=== PATIENT | female | born 1970 | race Hispanic/Latino ===

== ENCOUNTER 2017-07-07 23:27 | Emergency (ER) | payer SELFPAY ==
[2017-07-08 01:49] LABS: Basophils # (Auto) 0.1 K/mm3 (0.0-0.1); Basophils % (Auto) 0.6 % (0.0-1.8); Eosinophils # (Auto) 0.7 K/mm3 (0.0-0.4); Eosinophils % (Auto) 5.9 % (0.0-4.3); Hematocrit 41.9 % (30.3-42.9); Hemoglobin 14.1 gm/dl (10.1-14.3); Lymphocytes # (Auto) 3.6 K/mm3 (1.2-5.4); Lymphocytes % (Auto) 29.8 % (13.4-35.0); Mean Corpuscular HGB Conc 34 % (30-34); Mean Corpuscular Hemoglobin 27 pg (28-32); Mean Corpuscular Volume 81 fl (79-97); Monocytes # (Auto) 0.7 K/mm3 (0.0-0.8); Platelet Count 377 K/mm3 (140-440); Red Blood Count 5.18 M/mm3 (3.65-5.03); Red Cell Distribution Width 14.1 % (13.2-15.2)
[2017-07-08 01:53] LABS: Alanine Aminotransferase 90 units/L (7-56); Albumin 4.5 g/dL (3.9-5); BUN/Creatinine Ratio 19; Blood Urea Nitrogen 13 mg/dL (7-17); Calcium 9.6 mg/dL (8.4-10.2); Hemolysis Index 3
[2017-07-08 03:30] LABS: Bilirubin,Urine NEG (Negative); Blood,Urine NEG (Negative); Calcium Oxalate Crystals,Urine 1+; Color,Urine Yellow (Yellow); Mucus,Urine 2+ /HPF; Urobilinogen,Urine < 2.0 mg/dL (<2.0)
[2017-07-08] MEDS ORDERED: NACL 0.9% 1000 ML 1,000 ML IV ONE (09:36)
[2017-07-08] MEDS ORDERED: MORPHINE IV ONE (09:36)
[2017-07-08] MEDS ORDERED: ZOFRAN IV ONE (09:36)
--- NOTE | 2017-07-08 10:27 | Emergency Department Report ---
ED Abdominal Pain HPI - General Chief Complaint: Abdominal Pain Stated Complaint: ABD PAIN Time Seen by Provider: 07/08/17 09:13 Source: patient Mode of arrival: Ambulatory Limitations: No Limitations - History of Present Illness Initial Comments: 46 year old female with a past medical history of diabetes (insulin-dependent and pills), hypertension, and liver cirrhosis "secondary to diabetes" presents to the Hospital complaining of abdominal pain since yesterday. Pain is in her right upper quadrant but also radiates to the lower abdomen. Pain is sharp and stabbing, worse with palpation, rate is 7/10 intensity, no reported alleviating factors. Patient denies nausea, vomiting, diarrhea, dysuria, fever, or hematuria. Patient complains of "right kidney pain". Patient recently relocated here from [place]. She does not have a local M.D. Her liver cirrhosis with diagnosed via liver biopsy and states she has been ruled out for hepatitis and does not drink alcohol. Severity scale (0 -10): 8 - Related Data Previous Rx's Medication Instructions Recorded Last Taken Type HYDROcodone/APAP 5-325 [[place] 1 each PO Q6HR PRN #15 tablet 07/08/17 Unknown Rx 5/325] Ondansetron [Zofran Odt] 4 mg PO Q8HR PRN #20 tab.rapdis 07/08/17 Unknown Rx Allergies Allergy/AdvReac Type Severity Reaction Status Date / Time fentanyl Allergy Nausea Verified 07/08/17 01:06 tramadol Allergy Hives Verified 07/08/17 01:06 ED Review of Systems ROS: Stated complaint: ABD PAIN Other details as noted in HPI Comment: All other systems reviewed and negative Other: Constitutional: No fevers chills Eyes: No eye pain visual changes ENT: No ear pain or throat pain Neck: Denies pain Respiratory: Denies cough wheezing shortness of breath Cardiovascular: Denies chest pain, palpitations, syncope GI: as per hpi : Denies dysuria Musculoskeletal: Denies back pain, joint swelling Skin: Denies rash, lesions, erythema Neurologic: Denies headache, numbness, weakness Psychiatric: Denies suicidal ideation, hallucinations ED Past Medical Hx - Past Medical History Previous Medical History?: Yes Hx Diabetes: Yes Additional medical history: Cirrhosis - Surgical History Past Surgical History?: Yes Hx Cholecystectomy: Yes Additional Surgical History: liver biopsy - Social History Smoking Status: Never Smoker Substance Use Type: None - Medications Home Medications: Home Medications Medication Instructions Recorded Confirmed Last Taken Type HYDROcodone/APAP 5-325 [[place] 1 each PO Q6HR PRN #15 tablet 07/08/17 Unknown Rx 5/325] Ondansetron [Zofran Odt] 4 mg PO Q8HR PRN #20 tab.rapdis 07/08/17 Unknown Rx ED Physical Exam - General Limitations: No Limitations - Other Other exam information: General: No limitations, patient is alert in no acute distress Head exam: Atraumatic, normocephalic Eyes exam: Normal appearance, pupils equal reactive to light, nonicteric sclera ENT: Moist mucous membrane, normal oropharynx Neck exam: Normal inspection, full range of motion, no meningismus nontender Respiratory exam: Clear to auscultation bilateral, no wheezes, rales, crackles Cardiovascular: Normal rate and rhythm, normal heart sounds Abdomen: Soft, nondistended, no right upper quadrant and bilateral lower quadrant , with normal bowel sounds, no rebound, or guarding Extremity: Full range of motion normal inspection no deformity Back: Normal Inspection, full range of motion, no tenderness Neurologic: Alert, oriented x3, cranial nerves intact, no motor or sensory deficit Psychiatric: normal affect, normal mood Skin: Warm, dry, intact ED Course Vital Signs 07/08/17 07/08/17 07/08/17 01:07 03:59 06:02 Temperature 98.3 F 97.8 F Pulse Rate 94 H 79 Respiratory 18 18 18 Rate Blood Pressure 176/77 Blood Pressure 175/102 [Left] O2 Sat by Pulse 95 99 Oximetry 07/08/17 07/08/17 07/08/17 06:15 06:45 07:00 Temperature Pulse Rate Respiratory Rate Blood Pressure 153/72 149/77 146/82 Blood Pressure [Left] O2 Sat by Pulse 97 98 99 Oximetry 07/08/17 07/08/17 07/08/17 07:05 07:15 07:30 Temperature 98.0 F Pulse Rate 88 Respiratory 14 Rate Blood Pressure 146/82 130/73 Blood Pressure 146/82 [Left] O2 Sat by Pulse 99 98 98 Oximetry 07/08/17 07/08/17 07/08/17 07:45 08:00 08:15 Temperature Pulse Rate Respiratory Rate Blood Pressure 130/73 133/71 133/71 Blood Pressure [Left] O2 Sat by Pulse 98 100 98 Oximetry 07/08/17 07/08/17 08:30 09:55 Temperature Pulse Rate Respiratory 15 Rate Blood Pressure 133/75 Blood Pressure [Left] O2 Sat by Pulse 99 Oximetry ED Medical Decision Making - Lab Data Result diagrams: 07/08/17 01:20 07/08/17 01:20 Lab Results 07/08/17 07/08/17 07/08/17 Range/Units 01:20 01:20 01:20 WBC 12.1 H (4.5-11.0) K/mm3 RBC 5.18 H (3.65-5.03) M/mm3 Hgb 14.1 (10.1-14.3) gm/dl Hct 41.9 (30.3-42.9) % MCV 81 (79-97) fl MCH 27 L (28-32) pg MCHC 34 (30-34) % RDW 14.1 (13.2-15.2) % Plt Count 377 (140-440) K/mm3 Lymph % (Auto) 29.8 (13.4-35.0) % [place] % (Auto) 6.0 (0.0-7.3) % Eos % (Auto) 5.9 H (0.0-4.3) % Baso % (Auto) 0.6 (0.0-1.8) % Lymph # 3.6 (1.2-5.4) K/mm3 [place] # 0.7 (0.0-0.8) K/mm3 Eos # 0.7 H (0.0-0.4) K/mm3 Baso # 0.1 (0.0-0.1) K/mm3 Seg Neutrophils % 57.7 (40.0-70.0) % Seg Neutrophils # 7.0 (1.8-7.7) K/mm3 Sodium 137 (137-145) mmol/L Potassium 4.1 (3.6-5.0) mmol/L Chloride 94.9 L (98-107) mmol/L Carbon Dioxide 27 (22-30) mmol/L Anion Gap 19 mmol/L BUN 13 (7-17) mg/dL Creatinine 0.7 (0.7-1.2) mg/dL Estimated GFR > 60 ml/min BUN/Creatinine Ratio 19 % Glucose 253 H (65-100) mg/dL POC Glucose (70-105) Calcium 9.6 (8.4-10.2) mg/dL Total Bilirubin 0.40 (0.1-1.2) mg/dL AST 53 H (5-40) units/L ALT 90 H (7-56) units/L Alkaline Phosphatase 136 H (35-129) units/L Total Protein 8.4 H (6.3-8.2) g/dL Albumin 4.5 (3.9-5) g/dL Albumin/Globulin Ratio 1.2 % HCG, Qual Negative (Negative) Urine Color (Yellow) Urine Turbidity (Clear) Urine pH (5.0-7.0) Ur Specific [place] (1.003-1.030) Urine Protein (Negative) mg/dL Urine Glucose (UA) (Negative) mg/dL Urine Ketones (Negative) mg/dL Urine Blood (Negative) Urine Nitrite (Negative) Urine Bilirubin (Negative) Urine Urobilinogen (<2.0) mg/dL Ur Leukocyte Esterase (Negative) Urine WBC (Auto) (0.0-6.0) /HPF Urine RBC (Auto) (0.0-6.0) /HPF U Epithel Cells (Auto) (0-13.0) /HPF Calcium Oxalate Crystal Urine Mucus /HPF 07/08/17 07/08/17 Range/Units 02:57 09:50 WBC (4.5-11.0) K/mm3 RBC (3.65-5.03) M/mm3 Hgb (10.1-14.3) gm/dl Hct (30.3-42.9) % MCV (79-97) fl MCH (28-32) pg MCHC (30-34) % RDW (13.2-15.2) % Plt Count (140-440) K/mm3 Lymph % (Auto) (13.4-35.0) % [place] % (Auto) (0.0-7.3) % Eos % (Auto) (0.0-4.3) % Baso % (Auto) (0.0-1.8) % Lymph # (1.2-5.4) K/mm3 [place] # (0.0-0.8) K/mm3 Eos # (0.0-0.4) K/mm3 Baso # (0.0-0.1) K/mm3 Seg Neutrophils % (40.0-70.0) % Seg Neutrophils # (1.8-7.7) K/mm3 Sodium (137-145) mmol/L Potassium (3.6-5.0) mmol/L Chloride (98-107) mmol/L Carbon Dioxide (22-30) mmol/L Anion Gap mmol/L BUN (7-17) mg/dL Creatinine (0.7-1.2) mg/dL Estimated GFR ml/min BUN/Creatinine Ratio % Glucose (65-100) mg/dL POC Glucose 245 H (70-105) Calcium (8.4-10.2) mg/dL Total Bilirubin (0.1-1.2) mg/dL AST (5-40) units/L ALT (7-56) units/L Alkaline Phosphatase (35-129) units/L Total Protein (6.3-8.2) g/dL Albumin (3.9-5) g/dL Albumin/Globulin Ratio % HCG, Qual (Negative) Urine Color Yellow (Yellow) Urine Turbidity Clear (Clear) Urine pH 5.0 (5.0-7.0) Ur Specific [place] 1.038 H (1.003-1.030) Urine Protein 100 mg/dl (Negative) mg/dL Urine Glucose (UA) >=500 (Negative) mg/dL Urine Ketones Neg (Negative) mg/dL Urine Blood Neg (Negative) Urine Nitrite Neg (Negative) Urine Bilirubin Neg (Negative) Urine Urobilinogen < 2.0 (<2.0) mg/dL Ur Leukocyte Esterase Neg (Negative) Urine WBC (Auto) 3.0 (0.0-6.0) /HPF Urine RBC (Auto) 5.0 (0.0-6.0) /HPF U Epithel Cells (Auto) 1.0 (0-13.0) /HPF Calcium Oxalate Crystal 1+ Urine Mucus 2+ /HPF - Radiology Data Radiology results: report reviewed ct abd/pelvis noncontrast: no acute process, bilateral renal calyceal stones. No ureteral stones or hydronephrosis. Cholecystectomy - Differential Diagnosis abdominal pain NOS, diverticulitis, appendicitis, cirrhosis Critical Care Time: No Critical care attestation.: If time is entered above; I have spent that time in minutes in the direct care of this critically ill patient, excluding procedure time. ED Disposition Clinical Impression: Abdominal pain, Cirrhosis, Diabetes Disposition: DC-01 TO HOME OR SELFCARE Is pt being admited?: No Does the pt Need Aspirin: No Condition: Stable Instructions: Abdominal Pain (ED), Diabetes Mellitus Type 2 in Adults (ED), Cirrhosis (ED) Additional Instructions: Take the medication as prescribed. Follow-up with the clinic and the pain specialist provided. Return if symptoms worsen as indicated by your discharge instructions Prescriptions: HYDROcodone/APAP 5-325 [[place] 5/325] 1 each PO Q6HR PRN #15 tablet PRN Reason: Pain Ondansetron [Zofran Odt] 4 mg PO Q8HR PRN #20 tab.rapdis PRN Reason: Nausea And Vomiting Referrals: MARIO KRUEGER MD [Staff Physician] - 3-5 Days (GI doctor ) [facility] [Provider Group] - 3-5 Days (primary clinic ) Time of Disposition: 13:10
--- NOTE | 2017-07-08 12:24 | Cat Scan Report ---
CT ABDOMEN PELVIS WITHOUT CONTRAST: HISTORY: Cirrhosis, right abdominal pain. COMPARISON: none. TECHNIQUE: Helical CT in 1.25mm intervals without IV contrast. Sagittal and coronal reconstructions. FINDINGS: Lung bases: Normal. Liver: Within normal limits. No cirrhosis is appreciated. Biliary system: Cholecystectomy. No biliary dilatation is appreciated. Pancreas: Normal. Spleen: Normal. Kidneys/ureters/bladder: There are a few punctate calyceal stones in both kidneys. No hydronephrosis or ureteral stones. No focal renal lesion. The bladder is unremarkable. Adrenal glands: Normal. Aorta: Normal. Intestines: Within normal limits given no oral contrast was administered. Appendix: Normal. Pelvic viscera: Normal. Ascites: None. Adenopathy: None. Musculoskeletal: Normal. IMPRESSION: No acute abdominal process. Bilateral renal calyceal stones. No ureteral stones or hydronephrosis. Cholecystectomy.
[2017-07-08 14:55] VITALS: BP 146/81
== END 2017-07-08 13:28 | disposition home or self-care (01) ==
LOC: ED 23:27
DX: K74.60 Unspecified cirrhosis of liver (principal); E11.9 Type 2 diabetes mellitus without complications; Z90.49 Acquired absence of other specified parts of digestive tract; Z88.6 Allergy status to analgesic agent
CPT/HCPCS: 36415; 74176; 80053; 81001; 82962; 84703; 85025; 96361; 96374; 96375; 99284; J2270; J2405; J7030; J1815

== ENCOUNTER 2017-08-24 15:17 | Emergency (ER) | payer SELFPAY ==
[2017-08-24 15:56] LABS: Basophils % (Auto) 0.5 % (0.0-1.8); Eosinophils # (Auto) 0.3 K/mm3 (0.0-0.4); Hematocrit 38.7 % (30.3-42.9); Hemoglobin 12.9 gm/dl (10.1-14.3); Lymphocytes # (Auto) 1.8 K/mm3 (1.2-5.4); Lymphocytes % (Auto) 27.4 % (13.4-35.0); Mean Corpuscular HGB Conc 33 % (30-34); Mean Corpuscular Hemoglobin 27 pg (28-32); Mean Corpuscular Volume 82 fl (79-97); Monocytes # (Auto) 0.4 K/mm3 (0.0-0.8); Monocytes % (Auto) 5.6 % (0.0-7.3); Platelet Count 291 K/mm3 (140-440); Red Blood Count 4.74 M/mm3 (3.65-5.03); Red Cell Distribution Width 14.2 % (13.2-15.2)
[2017-08-24 15:58] LABS: Bilirubin,Urine NEG (Negative); Blood,Urine NEG (Negative); Color,Urine Straw (Yellow); Mucus,Urine FEW /HPF; Protein,Urine <15 mg/dL mg/dL (Negative); Urobilinogen,Urine < 2.0 mg/dL (<2.0); WBC,Urine < 1.0 /HPF (0.0-6.0)
[2017-08-24 16:11] LABS: Alanine Aminotransferase 87 units/L (7-56); Albumin 4.3 g/dL (3.9-5); BUN/Creatinine Ratio 24; Blood Urea Nitrogen 12 mg/dL (7-17); Calcium 9.5 mg/dL (8.4-10.2); Hemolysis Index 0; Lipase 34 units/L (13-60)
[2017-08-24] MEDS ORDERED: NACL 0.9% 1000 ML 1,000 ML IV ONE (21:38)
[2017-08-24] MEDS ORDERED: HumuLIN R IV ONE (21:38)
[2017-08-24] MEDS ORDERED: CATAPRES PO ONE (21:39)
--- NOTE | 2017-08-24 21:44 | Emergency Department Report ---
ED General Adult HPI - General Chief complaint: Hyperglycemia Stated complaint: LIVER PAIN,DIABETES,MUSCLE JOINT PAIN Time Seen by Provider: 08/24/17 21:31 Source: patient Mode of arrival: Ambulatory Limitations: No Limitations - History of Present Illness Initial comments: Patient is 46 years old female with history of diabetes on insulin, hypertension and liver cirrhosis. Patient presented to the ER complaining of generalized abdominal pain and hyperglycemia. Patient stated that she has been having trouble controlling her blood sugar for the last 2 years. She stated that she recently moved from [facility] and she does not have a primary care physician. Patient denied any fever, nausea or vomiting. No diarrhea. Patient denied any chest pain or shortness of breath. - Related Data Previous Rx's Medication Instructions Recorded Last Taken Type HYDROcodone/APAP 5-325 [[place] 1 each PO Q6HR PRN #15 tablet 07/08/17 Unknown Rx 5/325] Ondansetron [Zofran Odt] 4 mg PO Q8HR PRN #20 tab.rapdis 07/08/17 Unknown Rx Allergies Allergy/AdvReac Type Severity Reaction Status Date / Time fentanyl Allergy Nausea Verified 07/08/17 01:06 tramadol Allergy Hives Verified 07/08/17 01:06 ED Review of Systems ROS: Stated complaint: LIVER PAIN,DIABETES,MUSCLE JOINT PAIN Other details as noted in HPI Comment: All other systems reviewed and negative Constitutional: denies: chills, fever Respiratory: denies: cough, orthopnea, shortness of breath, SOB with exertion, SOB at rest Cardiovascular: denies: chest pain, palpitations, dyspnea on exertion Gastrointestinal: abdominal pain. denies: nausea, vomiting, diarrhea, constipation, hematemesis, melena, hematochezia Neurological: denies: headache, weakness, numbness, paresthesias, confusion ED Past Medical Hx - Past Medical History Hx Diabetes: Yes Additional medical history: Cirrhosis - Surgical History Hx Cholecystectomy: Yes Additional Surgical History: liver biopsy - Social History Smoking Status: Never Smoker Substance Use Type: None - Medications Home Medications: Home Medications Medication Instructions Recorded Confirmed Last Taken Type HYDROcodone/APAP 5-325 [[place] 1 each PO Q6HR PRN #15 tablet 07/08/17 Unknown Rx 5/325] Ondansetron [Zofran Odt] 4 mg PO Q8HR PRN #20 tab.rapdis 07/08/17 Unknown Rx ED Physical Exam - General Limitations: No Limitations General appearance: alert, in no apparent distress - Head Head exam: Present: atraumatic, normocephalic, normal inspection - Eye Eye exam: Present: normal appearance, PERRL - ENT ENT exam: Present: normal exam, normal orophraynx, mucous membranes moist - Neck Neck exam: Present: normal inspection, full ROM. Absent: tenderness, meningismus, lymphadenopathy - Respiratory Respiratory exam: Present: normal lung sounds bilaterally. Absent: respiratory distress, wheezes, rales, rhonchi, stridor, chest wall tenderness, accessory muscle use, decreased breath sounds, prolonged expiratory - Cardiovascular Cardiovascular Exam: Present: regular rate, normal rhythm, normal heart sounds - GI/Abdominal GI/Abdominal exam: Present: soft, normal bowel sounds. Absent: distended, tenderness, guarding, rebound, rigid, organomegaly, mass, bruit, pulsatile mass , hernia - Extremities Exam Extremities exam: Present: normal inspection, full ROM, normal capillary refill. Absent: tenderness, pedal edema, joint swelling, calf tenderness - Back Exam Back exam: Present: normal inspection, full ROM. Absent: tenderness, CVA tenderness (R), CVA tenderness (L), muscle spasm, paraspinal tenderness - Neurological Exam Neurological exam: Present: alert, oriented X3, CN II-XII intact, normal gait - Skin Skin exam: Present: warm, intact, normal color ED Course Vital Signs 08/24/17 08/24/17 08/24/17 15:19 21:46 22:00 Temperature 98.3 F 97.9 F Pulse Rate 94 H 94 H 94 H Respiratory 18 13 12 Rate Blood Pressure 169/64 155/81 Blood Pressure 179/88 [Left] O2 Sat by Pulse 96 99 100 Oximetry 08/24/17 08/24/17 22:30 23:00 Temperature Pulse Rate 93 H 94 H Respiratory 14 15 Rate Blood Pressure 155/70 131/72 Blood Pressure [Left] O2 Sat by Pulse 100 100 Oximetry ED Medical Decision Making - Lab Data Result diagrams: 08/24/17 15:29 08/24/17 15:29 - Medical Decision Making Patient stated that she is feeling much better. I advised how to use her NovoLog before meals, and Lantus at night. I did have Dr. Loving has a primary care physician to follow-up with Critical care attestation.: If time is entered above; I have spent that time in minutes in the direct care of this critically ill patient, excluding procedure time. ED Disposition Clinical Impression: Hyperglycemia due to type 2 diabetes mellitus Disposition: TO HOME OR SELFCARE Is pt being admited?: No Condition: Stable Instructions: Diabetes Mellitus Type 2 in Adults (ED) Additional Instructions: Use NovoLog 10 units before each meal. Continue Lantus 80 units at night. Referrals: KUNAL SANFORD MD [Primary Care Provider] - 3-5 Days MARISA LOVING MD [Staff Physician] - 3-5 Days
[2017-08-24 23:08] VITALS: BP 131/72
== END 2017-08-24 23:45 | disposition home or self-care (01) ==
LOC: ED 15:17
DX: E11.65 Type 2 diabetes mellitus with hyperglycemia (principal); Z90.49 Acquired absence of other specified parts of digestive tract; Z88.8 Allergy status to other drugs, medicaments and biological substances
CPT/HCPCS: 36415; 80053; 81001; 82805; 82962; 83690; 85025; 96361; 96374; 99284; J7030; J1815

== ENCOUNTER 2017-10-10 19:08 | Emergency (ER) | payer SELFPAY ==
[2017-10-10 19:24] VITALS: BP 164/86
--- NOTE | 2017-10-11 02:26 | Emergency Department Report ---
ED ENT HPI - General Chief complaint: Sore Throat Stated complaint: SORE THROAT,LEFT EAR PAIN,HBP Time Seen by Provider: 10/11/17 02:06 Source: patient Mode of arrival: Ambulatory Limitations: No Limitations - History of Present Illness Initial comments: 1-2 day history of sore throat and left ear pain, she has some sensation of fluid, no fever chills or diaphoresis. Past medical history is significant for insulin dependent diabetes mellitus. Hypertension. MD complaint: sore throat, ear pain (left) -: Gradual, days(s) (2-3) - Related Data Previous Rx's Medication Instructions Recorded Last Taken Type HYDROcodone/APAP 5-325 [[place] 1 each PO Q6HR PRN #15 tablet 07/08/17 Unknown Rx 5/325] Ondansetron [Zofran Odt] 4 mg PO Q8HR PRN #20 tab.rapdis 07/08/17 Unknown Rx Ketorolac [Toradol] 10 mg PO Q6H PRN #20 tablet 08/24/17 Unknown Rx Lisinopril [Zestril TAB] 20 mg PO QDAY #30 tab 08/24/17 Unknown Rx Ondansetron [Zofran Odt] 4 mg PO Q8HR PRN #14 tab.rapdis 08/24/17 Unknown Rx Amoxicillin/Potassium Clav 1 each PO BID #14 tablet 10/11/17 Unknown Rx [Augmentin 875-125 Tablet] HYDROcodone/APAP 5-325 [[place] 1 each PO Q6HR PRN #10 tablet 10/11/17 Unknown Rx 5/325] methylPREDNISolone [Medrol] 4 mg PO QAM #1 tab.ds.pk 10/11/17 Unknown Rx Allergies Allergy/AdvReac Type Severity Reaction Status Date / Time fentanyl Allergy Nausea Verified 07/08/17 01:06 tramadol Allergy Hives Verified 07/08/17 01:06 ED Dental HPI - General Chief complaint: Sore Throat Stated complaint: SORE THROAT,LEFT EAR PAIN,HBP Time Seen by Provider: 10/11/17 02:06 Source: patient Mode of arrival: Ambulatory Limitations: No Limitations - Related Data Previous Rx's Medication Instructions Recorded Last Taken Type HYDROcodone/APAP 5-325 [[place] 1 each PO Q6HR PRN #15 tablet 07/08/17 Unknown Rx 5/325] Ondansetron [Zofran Odt] 4 mg PO Q8HR PRN #20 tab.rapdis 07/08/17 Unknown Rx Ketorolac [Toradol] 10 mg PO Q6H PRN #20 tablet 08/24/17 Unknown Rx Lisinopril [Zestril TAB] 20 mg PO QDAY #30 tab 08/24/17 Unknown Rx Ondansetron [Zofran Odt] 4 mg PO Q8HR PRN #14 tab.rapdis 08/24/17 Unknown Rx Amoxicillin/Potassium Clav 1 each PO BID #14 tablet 10/11/17 Unknown Rx [Augmentin 875-125 Tablet] HYDROcodone/APAP 5-325 [[place] 1 each PO Q6HR PRN #10 tablet 10/11/17 Unknown Rx 5/325] methylPREDNISolone [Medrol] 4 mg PO QAM #1 tab.ds.pk 10/11/17 Unknown Rx Allergies Allergy/AdvReac Type Severity Reaction Status Date / Time fentanyl Allergy Nausea Verified 07/08/17 01:06 tramadol Allergy Hives Verified 07/08/17 01:06 ED Review of Systems ROS: Stated complaint: SORE THROAT,LEFT EAR PAIN,HBP Other details as noted in HPI Comment: All other systems reviewed and negative Constitutional: denies: chills, diaphoresis, fever Eyes: denies: eye pain ENT: ear pain, throat pain Respiratory: no symptoms reported (left). denies: cough, shortness of breath Cardiovascular: denies: chest pain, palpitations Endocrine: no symptoms reported Gastrointestinal: denies: abdominal pain, nausea, diarrhea Musculoskeletal: denies: back pain, joint swelling, arthralgia Skin: denies: rash, lesions Neurological: denies: headache, weakness, paresthesias Psychiatric: denies: anxiety, depression ED Past Medical Hx - Past Medical History Hx Diabetes: Yes Additional medical history: Cirrhosis - Surgical History Hx Cholecystectomy: Yes Additional Surgical History: liver biopsy - Social History Smoking Status: Never Smoker Substance Use Type: None - Medications Home Medications: Home Medications Medication Instructions Recorded Confirmed Last Taken Type HYDROcodone/APAP 5-325 [[place] 1 each PO Q6HR PRN #15 tablet 07/08/17 Unknown Rx 5/325] Ondansetron [Zofran Odt] 4 mg PO Q8HR PRN #20 tab.rapdis 07/08/17 Unknown Rx Ketorolac [Toradol] 10 mg PO Q6H PRN #20 tablet 08/24/17 Unknown Rx Lisinopril [Zestril TAB] 20 mg PO QDAY #30 tab 08/24/17 Unknown Rx Ondansetron [Zofran Odt] 4 mg PO Q8HR PRN #14 tab.rapdis 08/24/17 Unknown Rx Amoxicillin/Potassium Clav 1 each PO BID #14 tablet 10/11/17 Unknown Rx [Augmentin 875-125 Tablet] HYDROcodone/APAP 5-325 [[place] 1 each PO Q6HR PRN #10 tablet 10/11/17 Unknown Rx 5/325] methylPREDNISolone [Medrol] 4 mg PO QAM #1 tab.ds.pk 10/11/17 Unknown Rx ED Physical Exam - General Limitations: No Limitations General appearance: alert, in no apparent distress - Head Head exam: Present: atraumatic, normocephalic - Eye Eye exam: Present: PERRL, EOMI - ENT ENT exam: Present: other (left tympanic minimal pharyngeal erythema membrane mildly erythematous, no bulging, minimal fluid, moderate right middle ear fluid) - Neck Neck exam: Present: normal inspection, tenderness (mild anterior cervical tenderness, no swelling). Absent: meningismus - Respiratory Respiratory exam: Present: normal lung sounds bilaterally - Cardiovascular Cardiovascular Exam: Present: regular rate, normal heart sounds - GI/Abdominal GI/Abdominal exam: Present: soft. Absent: tenderness ED Course Vital Signs 10/10/17 19:20 Temperature 98.7 F Pulse Rate 103 H Respiratory 18 Rate Blood Pressure 164/86 O2 Sat by Pulse 97 Oximetry ED Medical Decision Making - Medical Decision Making This diabetic patient with sore throat and left ear discomfort has mild left otitis, does not appear to be separative, and some middle ear effusion. She will be treated with short course of Augmentin as well as short course of Medrol , advising patient that her blood sugar would go up briefly. Short course of hydrocodone for discomfort. Critical Care Time: No Critical care attestation.: If time is entered above; I have spent that time in minutes in the direct care of this critically ill patient, excluding procedure time. ED Disposition Clinical Impression: Left otitis media with effusion Pharyngitis Qualifiers: Pharyngitis/tonsillitis etiology: unspecified etiology Qualified Code(s): J02.9 - Acute pharyngitis, unspecified Disposition: DC- TO HOME OR SELFCARE Is pt being admited?: No Does the pt Need Aspirin: No Condition: Stable Instructions: Pharyngitis (ED), Otitis Media (ED) Prescriptions: Amoxicillin/Potassium Clav [Augmentin 875-125 Tablet] 1 each PO BID #14 tablet HYDROcodone/APAP 5-325 [[place] 5/325] 1 each PO Q6HR PRN #10 tablet PRN Reason: Pain methylPREDNISolone [Medrol] 4 mg PO QAM #1 tab.ds.pk Referrals: PRIMARY CARE, [Primary Care Provider] - 3-5 Days Time of Disposition: 02:26
[2017-10-11] MEDS ORDERED: NORCO 5/325 ONE (02:59)
[2017-10-11] MEDS ORDERED: NORCO 5/325 PO ONE (03:00)
== END 2017-10-11 03:05 | disposition home or self-care (01) ==
LOC: ED 19:08
DX: H65.92 Unspecified nonsuppurative otitis media, left ear (principal); J02.9 Acute pharyngitis, unspecified; E11.9 Type 2 diabetes mellitus without complications; Z88.8 Allergy status to other drugs, medicaments and biological substances
CPT/HCPCS: 99282

== ENCOUNTER 2019-05-24 17:51 | Inpatient (IN) | payer OTHER ==
--- NOTE | 2019-05-24 18:35 | Emergency Department Report ---
Blank Doc - Documentation Documentation: 48-year-old female that presents with body aches, fever, chills, body aches, and cough. Stated has some chest pains as well. This initial assessment/diagnostic orders/clinical plan/treatment(s) is/are subject to change based on patient's health status, clinical progression and re- assessment by fellow clinical providers in the ED. Further treatment and workup at subsequent clinical providers discretion. Patient/guardians urged not to elope from the ED as their condition may be serious if not clinically assessed and managed. Initial orders include: 1- Patient sent to [facility] for further evaluation and treatment 2- labs 3- UA 4- CXR 5- EKG
[2019-05-24] MEDS ORDERED: IBUPROFEN 600 MG TAB PO ONE ×2 (18:36→18:39)
[2019-05-24 19:05] LABS: Basophils % (Auto) 0.4 % (0.0-1.8); Eosinophils % (Auto) 0.1 % (0.0-4.3); Hematocrit 43.8 % (30.3-42.9); Hemoglobin 15.5 gm/dl (10.1-14.3); Lymphocytes # (Auto) 0.9 K/mm3 (1.2-5.4); Lymphocytes % (Auto) 8.3 % (13.4-35.0); Mean Corpuscular HGB Conc 35 % (30-34); Mean Corpuscular Volume 86 fl (79-97); Monocytes # (Auto) 0.6 K/mm3 (0.0-0.8); Monocytes % (Auto) 5.6 % (0.0-7.3); Platelet Count 220 K/mm3 (140-440); Red Blood Count 5.09 M/mm3 (3.65-5.03); Red Cell Distribution Width 14.1 % (13.2-15.2)
--- NOTE | 2019-05-24 19:08 | XRay Report ---
CHEST PA AND LATERAL VIEWS INDICATION: Chest Pain. COMPARISON: None. FINDINGS: Support devices: None. Heart: Within normal limits. Lungs/Pleura: No acute pulmonary or pleural findings. IMPRESSION: 1. No acute findings. Signer Name: Omar Pascual MD Signed: 05/24/2019 7:03 PM Workstation Name: [id number]
[2019-05-24 19:23] LABS: Alanine Aminotransferase 27 units/L (7-56); Albumin 4.6 g/dL (3.9-5); BUN/Creatinine Ratio 14; Blood Urea Nitrogen 7 mg/dL (7-17); Calcium 9.6 mg/dL (8.4-10.2); Hemolysis Index 5
[2019-05-24 20:02] LABS: Bacteria,Urine 1+ /HPF (Negative); Bilirubin,Urine NEG (Negative); Blood,Urine SM (Negative); Color,Urine Yellow (Yellow); Mucus,Urine FEW /HPF; Protein,Urine <15 mg/dL mg/dL (Negative); Urobilinogen,Urine < 2.0 mg/dL (<2.0)
[2019-05-24 20:05] LABS: Amphetamine Screen,Urine PRESUMPTIVE NEGATIVE; Benzodiazepines Screen,Urine PRESUMPTIVE NEGATIVE; Cannabinoid Screen,Urine PRESUMPTIVE NEGATIVE; Cocaine Screen,Urine PRESUMPTIVE NEGATIVE; Methadone Screen,Urine PRESUMPTIVE NEGATIVE; Opiate Screen,Urine PRESUMPTIVE NEGATIVE
[2019-05-24] MEDS ORDERED: SODIUM CHLORIDE 0.9% 1000 ML 1,000 ML IV ONE (23:00)
[2019-05-24] MEDS ORDERED: cefTRIAXone/NS 1 GM/50 ML 1 GM/50 ML BAG IV ONE (23:00)
[2019-05-24] MEDS ORDERED: SODIUM CHLORIDE 0.9% 1000 ML 2,000 ML ONE (23:02)
[2019-05-24] MEDS: SODIUM CHLORIDE 0.9% 1000 ML 1,000 ML IV ONE ×2 (23:30→23:53)
--- NOTE | 2019-05-25 01:07 | Cat Scan Report ---
CT ANGIOGRAPHY OF THE CHEST WITH INTRAVENOUS CONTRAST AND MULTIPLANAR MIP RECONSTRUCTIONS INDICATION / CLINICAL INFORMATION: Pleuritic chest pain, back pain, tachycardia and elevated d-dimer. TECHNIQUE: Axial CT images were obtained after injection of 100 cc Omnipaque 350 IV contrast using CTA protocol. 3 plane MIP / 3D reconstructions were produced. All CT scans at this location are performed using CT dose reduction for ALARA by means of automated exposure control. COMPARISON: None available. FINDINGS: There is good opacification of the pulmonary arterial system bilaterally without intraluminal filling defect to suggest acute PTE. The thoracic aorta is normal in caliber without dissection. No coronary artery calcification is seen. The tracheobronchial tree is normal. The lung parenchyma is clear. There is no evidence of adenopathy or effusion. There is a focal wedge-shaped area of poorly defined low density in the upper pole of the left kidney posteriorly with mild associated soft tissue stranding in the perinephric fat. The gallbladder is montes rgically absent. There is mild diffuse fatty infiltration of the liver. No acute osseous abnormality is seen. IMPRESSION: 1. No evidence of acute PTE. 2. Focal abnormality in the upper pole of the left kidney is probably related to focal pyelonephritis . Correlation with urinalysis is recommended. Signer Name: Manuel Meredith MD Signed: 05/25/2019 1:02 AM Workstation Name: [email or web address]
[2019-05-25] MEDS ORDERED: SODIUM CHLORIDE 0.9% 1000 ML 1,000 ML IV ONE (01:46)
[2019-05-25] MEDS ORDERED: KETOROLAC 30 MG/1 ML INJ IV ONE (01:49)
--- NOTE | 2019-05-25 02:09 | Emergency Department Report ---
ED General Adult HPI - General Chief complaint: Chest Pain Stated complaint: BODY LOCKING UP Time Seen by Provider: 05/24/19 18:33 Source: patient Mode of arrival: Ambulatory Limitations: No Limitations - History of Present Illness Initial comments: Patient is a 48-year-old female with past medical history of diabetes who is complaining of feeling ill for the last 3 days. Patient states she is had some subjective chills as well as some pleuritic chest discomfort with radiation to her back. Patient states the back pain is mid to lower back. Patient states she has some pain more on the left chest than the right. Patient also states she's had some urinary frequency but protruded this to her blood glucose elevating the last several days. Patient denies nausea vomiting cough cold congestion or dysuria. Patient states the chest discomfort is worse with deep breathing. Patient does state that she has some body aches as well. Severity scale (0 -10): 10 - Related Data Previous Rx's Medication Instructions Recorded Last Taken Type HYDROcodone/APAP 5-325 [[place] 1 each PO Q6HR PRN #15 tablet 07/08/17 Unknown Rx 5/325] Ondansetron [Zofran Odt] 4 mg PO Q8HR PRN #20 tab.rapdis 07/08/17 Unknown Rx Ketorolac [Toradol] 10 mg PO Q6H PRN #20 tablet 08/24/17 Unknown Rx Lisinopril [Zestril TAB] 20 mg PO QDAY #30 tab 08/24/17 Unknown Rx Ondansetron [Zofran Odt] 4 mg PO Q8HR PRN #14 tab.rapdis 08/24/17 Unknown Rx Amoxicillin/Potassium Clav 1 each PO BID #14 tablet 10/11/17 Unknown Rx [Augmentin 875-125 Tablet] HYDROcodone/APAP 5-325 [[place] 1 each PO Q6HR PRN #10 tablet 10/11/17 Unknown Rx 5/325] methylPREDNISolone [Medrol] 4 mg PO QAM #1 tab.ds.pk 10/11/17 Unknown Rx Allergies Allergy/AdvReac Type Severity Reaction Status Date / Time fentanyl Allergy Nausea Verified 07/08/17 01:06 tramadol Allergy Hives Verified 07/08/17 01:06 ED Review of Systems ROS: Stated complaint: BODY LOCKING UP Other details as noted in HPI Comment: All other systems reviewed and negative ED Past Medical Hx - Past Medical History Hx Diabetes: Yes Additional medical history: Cirrhosis - Surgical History Hx Cholecystectomy: Yes Additional Surgical History: liver biopsy - Social History Smoking Status: Never Smoker Substance Use Type: None - Medications Home Medications: Home Medications Medication Instructions Recorded Confirmed Last Taken Type HYDROcodone/APAP 5-325 [[place] 1 each PO Q6HR PRN #15 tablet 07/08/17 Unknown Rx 5/325] Ondansetron [Zofran Odt] 4 mg PO Q8HR PRN #20 tab.rapdis 07/08/17 Unknown Rx Ketorolac [Toradol] 10 mg PO Q6H PRN #20 tablet 08/24/17 Unknown Rx Lisinopril [Zestril TAB] 20 mg PO QDAY #30 tab 08/24/17 Unknown Rx Ondansetron [Zofran Odt] 4 mg PO Q8HR PRN #14 tab.rapdis 08/24/17 Unknown Rx Amoxicillin/Potassium Clav 1 each PO BID #14 tablet 10/11/17 Unknown Rx [Augmentin 875-125 Tablet] HYDROcodone/APAP 5-325 [[place] 1 each PO Q6HR PRN #10 tablet 10/11/17 Unknown Rx 5/325] methylPREDNISolone [Medrol] 4 mg PO QAM #1 tab.ds.pk 10/11/17 Unknown Rx ED Physical Exam - General Limitations: No Limitations General appearance: alert, in no apparent distress - Head Head exam: Present: atraumatic, normocephalic - Eye Eye exam: Present: normal appearance, PERRL, EOMI - ENT ENT exam: Present: mucous membranes dry - Neck Neck exam: Present: normal inspection - Respiratory Respiratory exam: Present: normal lung sounds bilaterally. Absent: respiratory distress, wheezes, rales, rhonchi - Cardiovascular Cardiovascular Exam: Present: normal rhythm, tachycardia. Absent: systolic murmur, diastolic murmur, rubs, gallop - GI/Abdominal GI/Abdominal exam: Present: soft, normal bowel sounds. Absent: distended, tenderness, guarding, rebound, rigid - Extremities Exam Extremities exam: Present: normal inspection. Absent: calf tenderness - Back Exam Back exam: Present: normal inspection - Neurological Exam Neurological exam: Present: alert, oriented X3 - Psychiatric Psychiatric exam: Present: normal affect, normal mood - Skin Skin exam: Present: warm, dry, intact, normal color. Absent: rash ED Course Vital Signs 05/24/19 05/25/19 18:03 00:11 Temperature 100.1 F H Pulse Rate 139 H 136 H Respiratory 20 17 Rate Blood Pressure 144/71 Blood Pressure 117/65 [Left] O2 Sat by Pulse 97 100 Oximetry ED Medical Decision Making - Lab Data Result diagrams: 05/24/19 18:46 05/24/19 18:46 Lab Results 05/24/19 05/24/19 05/24/19 Range/Units 18:46 18:46 18:46 WBC 10.6 (4.5-11.0) K/mm3 RBC 5.09 H (3.65-5.03) M/mm3 Hgb 15.5 H (10.1-14.3) gm/dl Hct 43.8 H (30.3-42.9) % MCV 86 (79-97) fl MCH 31 (28-32) pg MCHC 35 H (30-34) % RDW 14.1 (13.2-15.2) % Plt Count 220 (140-440) K/mm3 Lymph % (Auto) 8.3 L (13.4-35.0) % [place] % (Auto) 5.6 (0.0-7.3) % Eos % (Auto) 0.1 (0.0-4.3) % Baso % (Auto) 0.4 (0.0-1.8) % Lymph # 0.9 L (1.2-5.4) K/mm3 [place] # 0.6 (0.0-0.8) K/mm3 Eos # 0.0 (0.0-0.4) K/mm3 Baso # 0.0 (0.0-0.1) K/mm3 Seg Neutrophils % 85.6 H (40.0-70.0) % Seg Neutrophils # 9.1 H (1.8-7.7) K/mm3 D-Dimer (0-234) ng/mlDDU Sodium 133 L (137-145) mmol/L Potassium 4.3 (3.6-5.0) mmol/L Chloride 95.7 L (98-107) mmol/L Carbon Dioxide 21 L (22-30) mmol/L Anion Gap 21 mmol/L BUN 7 (7-17) mg/dL Creatinine 0.5 L (0.7-1.2) mg/dL Estimated GFR > 60 ml/min BUN/Creatinine Ratio 14 % Glucose 392 H (65-100) mg/dL POC Glucose (70-105) Lactic Acid 1.60 (0.7-2.0) mmol/L Calcium 9.6 (8.4-10.2) mg/dL Total Bilirubin 1.10 (0.1-1.2) mg/dL AST 16 (5-40) units/L ALT 27 (7-56) units/L Alkaline Phosphatase 155 H (35-129) units/L Troponin T (0.00-0.029) ng/mL Total Protein 7.5 (6.3-8.2) g/dL Albumin 4.6 (3.9-5) g/dL Albumin/Globulin Ratio 1.6 % Urine Color (Yellow) Urine Turbidity (Clear) Urine pH (5.0-7.0) Ur Specific [place] (1.003-1.030) Urine Protein (Negative) mg/dL Urine Glucose (UA) (Negative) mg/dL Urine Ketones (Negative) mg/dL Urine Blood (Negative) Urine Nitrite (Negative) Urine Bilirubin (Negative) Urine Urobilinogen (<2.0) mg/dL Ur Leukocyte Esterase (Negative) Urine WBC (Auto) (0.0-6.0) /HPF Urine RBC (Auto) (0.0-6.0) /HPF U Epithel Cells (Auto) (0-13.0) /HPF Urine Bacteria (Auto) (Negative) /HPF Urine Mucus /HPF Urine Opiates Screen Urine Methadone Screen Ur Barbiturates Screen Ur Phencyclidine Scrn Ur Amphetamines Screen U Benzodiazepines Scrn Urine Cocaine Screen U Marijuana (THC) Screen Drugs of Abuse Note 05/24/19 05/24/19 05/24/19 Range/Units 18:46 18:47 19:20 WBC (4.5-11.0) K/mm3 RBC (3.65-5.03) M/mm3 Hgb (10.1-14.3) gm/dl Hct (30.3-42.9) % MCV (79-97) fl MCH (28-32) pg MCHC (30-34) % RDW (13.2-15.2) % Plt Count (140-440) K/mm3 Lymph % (Auto) (13.4-35.0) % [place] % (Auto) (0.0-7.3) % Eos % (Auto) (0.0-4.3) % Baso % (Auto) (0.0-1.8) % Lymph # (1.2-5.4) K/mm3 [place] # (0.0-0.8) K/mm3 Eos # (0.0-0.4) K/mm3 Baso # (0.0-0.1) K/mm3 Seg Neutrophils % (40.0-70.0) % Seg Neutrophils # (1.8-7.7) K/mm3 D-Dimer (0-234) ng/mlDDU Sodium (137-145) mmol/L Potassium (3.6-5.0) mmol/L Chloride (98-107) mmol/L Carbon Dioxide (22-30) mmol/L Anion Gap mmol/L BUN (7-17) mg/dL Creatinine (0.7-1.2) mg/dL Estimated GFR ml/min BUN/Creatinine Ratio % Glucose (65-100) mg/dL POC Glucose 382 H (70-105) Lactic Acid (0.7-2.0) mmol/L Calcium (8.4-10.2) mg/dL Total Bilirubin (0.1-1.2) mg/dL AST (5-40) units/L ALT (7-56) units/L Alkaline Phosphatase (35-129) units/L Troponin T < 0.010 (0.00-0.029) ng/mL Total Protein (6.3-8.2) g/dL Albumin (3.9-5) g/dL Albumin/Globulin Ratio % Urine Color Yellow (Yellow) Urine Turbidity Clear (Clear) Urine pH 6.0 (5.0-7.0) Ur Specific [place] 1.038 H (1.003-1.030) Urine Protein <15 mg/dl (Negative) mg/dL Urine Glucose (UA) >=500 (Negative) mg/dL Urine Ketones 20 (Negative) mg/dL Urine Blood Sm (Negative) Urine Nitrite Neg (Negative) Urine Bilirubin Neg (Negative) Urine Urobilinogen < 2.0 (<2.0) mg/dL Ur Leukocyte Esterase Sm (Negative) Urine WBC (Auto) 23.0 H (0.0-6.0) /HPF Urine RBC (Auto) 5.0 (0.0-6.0) /HPF U Epithel Cells (Auto) < 1.0 (0-13.0) /HPF Urine Bacteria (Auto) 1+ (Negative) /HPF Urine Mucus Few /HPF Urine Opiates Screen Urine Methadone Screen Ur Barbiturates Screen Ur Phencyclidine Scrn Ur Amphetamines Screen U Benzodiazepines Scrn Urine Cocaine Screen U Marijuana (THC) Screen Drugs of Abuse Note 05/24/19 05/24/19 05/25/19 Range/Units 19:20 23:20 00:43 WBC (4.5-11.0) K/mm3 RBC (3.65-5.03) M/mm3 Hgb (10.1-14.3) gm/dl Hct (30.3-42.9) % MCV (79-97) fl MCH (28-32) pg MCHC (30-34) % RDW (13.2-15.2) % Plt Count (140-440) K/mm3 Lymph % (Auto) (13.4-35.0) % [place] % (Auto) (0.0-7.3) % Eos % (Auto) (0.0-4.3) % Baso % (Auto) (0.0-1.8) % Lymph # (1.2-5.4) K/mm3 [place] # (0.0-0.8) K/mm3 Eos # (0.0-0.4) K/mm3 Baso # (0.0-0.1) K/mm3 Seg Neutrophils % (40.0-70.0) % Seg Neutrophils # (1.8-7.7) K/mm3 D-Dimer 265.03 H (0-234) ng/mlDDU Sodium (137-145) mmol/L Potassium (3.6-5.0) mmol/L Chloride (98-107) mmol/L Carbon Dioxide (22-30) mmol/L Anion Gap mmol/L BUN (7-17) mg/dL Creatinine (0.7-1.2) mg/dL Estimated GFR ml/min BUN/Creatinine Ratio % Glucose (65-100) mg/dL POC Glucose 311 H (70-105) Lactic Acid (0.7-2.0) mmol/L Calcium (8.4-10.2) mg/dL Total Bilirubin (0.1-1.2) mg/dL AST (5-40) units/L ALT (7-56) units/L Alkaline Phosphatase (35-129) units/L Troponin T (0.00-0.029) ng/mL Total Protein (6.3-8.2) g/dL Albumin (3.9-5) g/dL Albumin/Globulin Ratio % Urine Color (Yellow) Urine Turbidity (Clear) Urine pH (5.0-7.0) Ur Specific [place] (1.003-1.030) Urine Protein (Negative) mg/dL Urine Glucose (UA) (Negative) mg/dL Urine Ketones (Negative) mg/dL Urine Blood (Negative) Urine Nitrite (Negative) Urine Bilirubin (Negative) Urine Urobilinogen (<2.0) mg/dL Ur Leukocyte Esterase (Negative) Urine WBC (Auto) (0.0-6.0) /HPF Urine RBC (Auto) (0.0-6.0) /HPF U Epithel Cells (Auto) (0-13.0) /HPF Urine Bacteria (Auto) (Negative) /HPF Urine Mucus /HPF Urine Opiates Screen Presumptive negative Urine Methadone Screen Presumptive negative Ur Barbiturates Screen Presumptive negative Ur Phencyclidine Scrn Presumptive negative Ur Amphetamines Screen Presumptive negative U Benzodiazepines Scrn Presumptive negative Urine Cocaine Screen Presumptive negative U Marijuana (THC) Screen Presumptive negative Drugs of Abuse Note Disclamer - EKG Data -: EKG Interpreted by Or EKG shows normal: sinus rhythm, axis, intervals, QRS complexes, ST-T waves Rate: tachycardia (144) - Radiology Data Ordering Physician: NABEEL SARAVIA NP Date of Service: 05/24/19 Procedure(s): XR chest routine 2V Accession Number(s): [id number] cc: NABEEL SARAVIA NP Fluoro Time In Minutes: CHEST PA AND LATERAL VIEWS INDICATION: Chest Pain. COMPARISON: None. FINDINGS: Support devices: None. Heart: Within normal limits. Lungs/Pleura: No acute pulmonary or pleural findings. IMPRESSION: 1. No acute findings. Signer Name: Omar Pascual MD Signed: 05/24/2019 7:03 PM Workstation Name: [id number] Transcribed By: SW Dictated By: Omar Pascual MD Electronically Authenticated By: Omar Pascual MD Signed Date/Time: 05/24/19 190 Ordering Physician: ROBERT PEREZ MD Date of Service: 05/25/19 Procedure(s): CT angio chest Accession Number(s): [id number] cc: ROBERT PEREZ MD CT ANGIOGRAPHY OF THE CHEST WITH INTRAVENOUS CONTRAST AND MULTIPLANAR MIP RECONSTRUCTIONS INDICATION / CLINICAL INFORMATION: Pleuritic chest pain, back pain, tachycardia and elevated d-dimer. TECHNIQUE: Axial CT images were obtained after injection of 100 cc Omnipaque 350 IV contrast using CTA protocol. 3 plane MIP / 3D reconstructions were produced. All CT scans at this location are performed using CT dose reduction for ALARA by means of automated exposure control. COMPARISON: None available. FINDINGS: There is good opacification of the pulmonary arterial system bilaterally without intraluminal filling defect to suggest acute PTE. The thoracic aorta is normal in caliber without dissection. No coronary artery calcification is seen. The tracheobronchial tree is normal. The lung parenchyma is clear. There is no evidence of adenopathy or effusion. There is a focal wedge-shaped area of poorly defined low density in the upper pole of the left kidney posteriorly with mild associated soft tissue stranding in the perinephric fat. The gallbladder is surgically absent. There is mild diffuse fatty infiltration of the liver. No acute osseous abnormality is seen. IMPRESSION: 1. No evidence of acute PTE. 2. Focal abnormality in the upper pole of the left kidney is probably related to focal pyelonephritis. Correlation with urinalysis is recommended. Signer Name: Manuel Meredith MD Signed: 05/25/2019 1:02 AM Workstation Name: [id number] Transcribed By: RT Dictated By: Manuel Meredith MD Electronically Authenticated By: Manuel Meredith MD Signed Date/Time: 05/25/19 0102 - Medical Decision Making Patient is a 48-year-old female past medical history diabetes who is presenting with some generalized illness as well as some pleuritic chest discomfort. Patient states that covered discomfort is radiating into the mid that most on the left side. Patient was tachycardic on arrival received IV fluids which actually did not improve the tachycardia. Patient's was not initially complaining of severe pain however she was given Toradol see if this will help with the heart rate. Patient had a slightly elevated d-dimer and a CTA of the chest was ordered to rule out pulmonary embolus given the patient's pleuritic discomfort and tachycardia. No peas found however the patient did have a focal pyelonephritis on the left kidney. Patient did receive Rocephin and after the urinalysis showed she had a slight UTI. Patient be admitted to the hospitalist service for IV antibiotics and further fluids. We will continue to monitor her heart rate to ensure that it improves back to normal. Critical Care Time: Yes (30) Critical care attestation.: If time is entered above; I have spent that time in minutes in the direct care of this critically ill patient, excluding procedure time. ED Disposition Clinical Impression: Pyelonephritis, Hyperglycemia, Tachycardia, Hyponatremia, Mild dehydration Disposition: OP ADMIT IP TO THIS HOSP Is pt being admited?: Yes Does the pt Need Aspirin: No Condition: Stable Time of Disposition: 02:10
[2019-05-25] MEDS ORDERED: DEXTROSE 50% IN WATER (25GM) 50 ML SYRINGE IV PRN (02:10)
--- NOTE | 2019-05-25 02:55 | History and Physical Report ---
<MANUELA BLACKWOOD - Last Filed: 05/25/19 02:41> History of Present Illness Date of examination: 05/25/19 Date of admission: 05/25/2019 Chief complaint: fever, back and flank pain History of present illness: 48-year-old female with history of insulin-dependent diabetes, hypertension, and liver cirrhosis who presents to [facility] ED with complaints of flank pain, lower back pain, fever, and generalized weakness x3 days. Patient states that her recently had the flu and is recovering. When she started feeling body aches and weakness she thought that she was coming down with the flu. As the days progressed patient had urinary frequency and thought that her blood sugar was elevated. Patient originally presented to the ED she stated that she had chest pain with radiation to back. After further investigation patient stated that her pain was located along the lateral portion of ribs. She admits to fever, nausea, and lower back pain. Patient states that she recently relocated from [place] to [place] approximately 3 to 4 months ago. At this time she does not have a PCP or health insurance. Patient is hoping to get established with PCP and health care assistance program. I have placed a case management consult for further assistance. Past History Past Medical History: diabetes (Insulin-dependent), hypertension, liver disease (Cirrhosis) Past Surgical History: cholecystectomy, Other (Liver biopsy) Social history: Family history: cancer (Grandmother), diabetes (Maternal and paternal side of family), hypertension (Father) Medications and Allergies Allergies Allergy/AdvReac Type Severity Reaction Status Date / Time fentanyl Allergy Nausea Verified 07/08/17 01:06 tramadol Allergy Hives Verified 07/08/17 01:06 Home Medications Medication Instructions Recorded Confirmed Last Taken Type Lisinopril [Zestril TAB] 20 mg PO QDAY #30 tab 08/24/17 Unknown Rx Insulin Glargine,Hum.rec.anlog 80 unit SQ QHS 05/25/19 05/25/19 Unknown History [Lantus Solostar] LORazepam [Lorazepam] 0.5 mg PO QDAY 05/25/19 05/25/19 Unknown History Victoza 2-Jovon 2 units SQ QDAY 05/25/19 05/25/19 Unknown History Active Meds: Active Medications Acetaminophen (Tylenol) 650 mg PO Q4H PRN PRN Reason: Pain MILD(1-3)/Fever >100.5/MANZANO Dextrose (D50w (25gm) Syringe) 50 ml IV Q30MIN PRN; Protocol PRN Reason: Hypoglycemia Docusate Sodium (Colace) 100 mg PO BID [facility] Heparin Sodium (Porcine) (Heparin) 5,000 unit SUB-Q Q12HR [facility] Sodium Chloride (Nacl 0.9% 1000 Ml) 1,000 mls @ 999 mls/hr IV BOLUS ONE Stop: 05/25/19 02:46 Last Admin: 05/25/19 02:11 Dose: 999 mls/hr Documented by: Sodium Chloride (Nacl 0.9% 1000 Ml) 1,000 mls @ 100 mls/hr IV DIRECT [facility] Insulin Human Lispro (Humalog) 0 unit SUB-Q ACHS [facility]; Protocol Ondansetron HCl (Zofran) 4 mg IV Q6H PRN PRN Reason: Nausea And Vomiting Oxycodone/Acetaminophen (Percocet 5/325) 1 tab PO Q6H PRN PRN Reason: Pain, Moderate (4-6) Sodium Chloride (Sodium Chloride Flush Syringe 10 Ml) 10 ml IV BID [facility] Sodium Chloride (Sodium Chloride Flush Syringe 10 Ml) 10 ml IV PRN PRN PRN Reason: LINE FLUSH Review of Systems All systems: negative Constitutional: fever, chills, weakness Gastrointestinal: nausea Genitourinary Female: flank pain, urinary frequency Exam - Physical Exam Narrative exam: Physical exam General appearance: Present: No acute distress, alert and oriented 3, well- developed, adult female - EENT Eyes: Present: PERRL, EOM intact ENT: hearing intact, missing teeth - Neck Neck: Present: supple, normal ROM - Respiratory Respiratory effort: Non-labored Respiratory: Clear throughout - Cardiovascular Heart rate: 136 (bpm) Rhythm: Sinus tachycardia Heart Sounds: Present: S1 & S2. Absent: rub, click - Extremities Extremities: no ischemia, pulses intact, - Peripheral Assessment Peripheral Pulses: within normal limits - Abdominal General gastrointestinal: soft, non-tender, normal bowel sounds - : Bilateral flank pain - Integumentary Integumentary: Present: warm, dry - Musculoskeletal Musculoskeletal: Able to move all extremities -Neurological Neurological: CN II-XII intact - Psychiatric Psychiatric: cooperative - Constitutional Vitals: Temp Pulse Resp BP Pulse Ox 100.1 F H 136 H 17 117/65 100 05/24/19 18:03 05/25/19 00:11 05/25/19 00:11 05/25/19 00:11 05/25/19 00:11 BRANT score - Brant Score Age > 65: (0) No Aspirin use within the Past 7 Days: (0) No 3 or more CAD Risk Factors: (0) No 2 or more Angina events in past 24 hrs: (0) No Known CAD with more than 50% Stenosis: (0) No Elevated Cardiac Markers: (0) No ST Deviation Greater than 0.5mm: (0) No BRANT Score: 0 Results - Labs CBC & Chem 7: 05/24/19 18:46 05/24/19 18:46 Labs: Laboratory Last Values WBC 10.6 K/mm3 (4.5-11.0) 05/24/19 18:46 RBC 5.09 M/mm3 (3.65-5.03) H 05/24/19 18:46 Hgb 15.5 gm/dl (10.1-14.3) H 05/24/19 18:46 Hct 43.8 % (30.3-42.9) H 05/24/19 18:46 MCV 86 fl (79-97) 05/24/19 18:46 MCH 31 pg (28-32) 05/24/19 18:46 MCHC 35 % (30-34) H 05/24/19 18:46 RDW 14.1 % (13.2-15.2) 05/24/19 18:46 Plt Count 220 K/mm3 (140-440) 05/24/19 18:46 Lymph % (Auto) 8.3 % (13.4-35.0) L 05/24/19 18:46 [place] % (Auto) 5.6 % (0.0-7.3) 05/24/19 18:46 Eos % (Auto) 0.1 % (0.0-4.3) 05/24/19 18:46 Baso % (Auto) 0.4 % (0.0-1.8) 05/24/19 18:46 Lymph # 0.9 K/mm3 (1.2-5.4) L 05/24/19 18:46 [place] # 0.6 K/mm3 (0.0-0.8) 05/24/19 18:46 Eos # 0.0 K/mm3 (0.0-0.4) 05/24/19 18:46 Baso # 0.0 K/mm3 (0.0-0.1) 05/24/19 18:46 Seg Neutrophils % 85.6 % (40.0-70.0) H 05/24/19 18:46 Seg Neutrophils # 9.1 K/mm3 (1.8-7.7) H 05/24/19 18:46 D-Dimer 265.03 ng/mlDDU (0-234) H 05/24/19 23:20 Sodium 133 mmol/L (137-145) L 05/24/19 18:46 Potassium 4.3 mmol/L (3.6-5.0) 05/24/19 18:46 Chloride 95.7 mmol/L (98-107) L 05/24/19 18:46 Carbon Dioxide 21 mmol/L (22-30) L 05/24/19 18:46 Anion Gap 21 mmol/L 05/24/19 18:46 BUN 7 mg/dL (7-17) 05/24/19 18:46 Creatinine 0.5 mg/dL (0.7-1.2) L 05/24/19 18:46 Estimated GFR > 60 ml/min 05/24/19 18:46 BUN/Creatinine Ratio 14 % 05/24/19 18:46 Glucose 392 mg/dL (65-100) H 05/24/19 18:46 POC Glucose 311 (70-105) H 05/25/19 00:43 Lactic Acid 1.60 mmol/L (0.7-2.0) 05/24/19 18:46 Calcium 9.6 mg/dL (8.4-10.2) 05/24/19 18:46 Total Bilirubin 1.10 mg/dL (0.1-1.2) 05/24/19 18:46 AST 16 units/L (5-40) 05/24/19 18:46 ALT 27 units/L (7-56) 05/24/19 18:46 Alkaline Phosphatase 155 units/L (35-129) H 05/24/19 18:46 Troponin T < 0.010 ng/mL (0.00-0.029) 05/24/19 18:46 Total Protein 7.5 g/dL (6.3-8.2) 05/24/19 18:46 Albumin 4.6 g/dL (3.9-5) 05/24/19 18:46 Albumin/Globulin Ratio 1.6 % 05/24/19 18:46 Urine Color Yellow (Yellow) 05/24/19 19:20 Urine Turbidity Clear (Clear) 05/24/19 19:20 Urine pH 6.0 (5.0-7.0) 05/24/19 19:20 Ur Specific [place] 1.038 (1.003-1.030) H 05/24/19 19:20 Urine Protein <15 mg/dl mg/dL (Negative) 05/24/19 19:20 Urine Glucose (UA) >=500 mg/dL (Negative) 05/24/19 19:20 Urine Ketones 20 mg/dL (Negative) 05/24/19 19:20 Urine Blood Sm (Negative) 05/24/19 19:20 Urine Nitrite Neg (Negative) 05/24/19 19:20 Urine Bilirubin Neg (Negative) 05/24/19 19:20 Urine Urobilinogen < 2.0 mg/dL (<2.0) 05/24/19 19:20 Ur Leukocyte Esterase Sm (Negative) 05/24/19 19:20 Urine WBC (Auto) 23.0 /HPF (0.0-6.0) H 05/24/19 19:20 Urine RBC (Auto) 5.0 /HPF (0.0-6.0) 05/24/19 19:20 U Epithel Cells (Auto) < 1.0 /HPF (0-13.0) 05/24/19 19:20 Urine Bacteria (Auto) 1+ /HPF (Negative) 05/24/19 19:20 Urine Mucus Few /HPF 05/24/19 19:20 Urine Opiates Screen Presumptive negative 05/24/19 19:20 Urine Methadone Screen Presumptive negative 05/24/19 19:20 Ur Barbiturates Screen Presumptive negative 05/24/19 19:20 Ur Phencyclidine Scrn Presumptive negative 05/24/19 19:20 Ur Amphetamines Screen Presumptive negative 05/24/19 19:20 U Benzodiazepines Scrn Presumptive negative 05/24/19 19:20 Urine Cocaine Screen Presumptive negative 05/24/19 19:20 U Marijuana (THC) Screen Presumptive negative 05/24/19 19:20 Drugs of Abuse Note Disclamer 05/24/19 19:20 - Imaging and Cardiology Imaging and Cardiology: CXR: FINDINGS: Support devices: None. Heart: Within normal limits. Lungs/Pleura: No acute pulmonary or pleural findings. IMPRESSION: 1. No acute findings. CT angio Chest: FINDINGS: There is good opacification of the pulmonary arterial system bi laterally without intraluminal filling defect to suggest acute PTE. The thoracic aorta is normal in caliber without dissection. No coronary artery calcification is seen. The tracheobronchial tree is normal. The lung parenchyma is clear. There is no evidence of adenopathy or effusion. There is a focal wedge-shaped area of poorly defined low density in the upper pole of the left kidney posteriorly with mild associated soft tissue stranding in the perinephric fat. The gallbladder is surgically absent. There is mild diffuse fatty infiltration of the liver. No acute osseous abnormality is seen. IMPRESSION: 1. No evidence of acute PTE. 2. Focal abnormality in the upper pole of the left kidney is probably related to focal pyelonephritis. Correlation with urinalysis is recommended. Renal US: pending Assessment and Plan Assessment and plan: 48-year-old female with history of insulin-dependent diabetes, hypertension, and liver cirrhosis who presents to [facility] ED with complaints of flank pain, lower back pain, fever, and generalized weakness x3 days. Pyelonephritis -Secondary to UTI -CT angiogram chest showed: Focal abnormality in the upper pole of the left kidney is probably related to focal pyelonephritis -Continue supportive care -Cultures pending -Renal US pendinf -On IV ABX and IVF Urinary tract infection -UA positive for UTI -urine wbc 23, small leukocytes, small blood -Urine culture pending -on IV Abx Insulin-dependent diabetes -With hyperglycemia -BG on admission 392 -POC BG monitoring -SSI coverage -HgbA1c pending Elevated d-dimer -265.3 -CT angiogram chest negative for PE Hyponatremia -Mild -Na on admission 133 -Slowly correct Na with IVF -Continue to monitor replete prn Tachycardia -HR 120-130's -?? Dehydration; Hemoglobin 15.5 -Troponin negative; repeat pending -Receiving IVF -on IV Abx -Monitor labs DVT PPX -on Heparin Advance Directives: No VTE prophylaxis?: Chemical Plan of care discussed with patient/family: Yes <SHARRON CARMONANEELIMA Wu - Last Filed: 05/25/19 23:44> History of Present Illness Date of admission: 05/25/19 03:25 Medications and Allergies Active Meds: Active Medications Acetaminophen (Tylenol) 650 mg PO Q4H [facility] Albuterol (Proventil) 2.5 mg IH Q4HRT PRN PRN Reason: Shortness Of Breath Last Admin: 05/25/19 20:00 Dose: 2.5 mg Documented by: Dextrose (D50w (25gm) Syringe) 50 ml IV Q30MIN PRN; Protocol PRN Reason: Hypoglycemia Docusate Sodium (Colace) 100 mg PO BID [facility] Last Admin: 05/25/19 22:17 Dose: Not Given Documented by: Heparin Sodium (Porcine) (Heparin) 5,000 unit SUB-Q Q12HR [facility] Last Admin: 05/25/19 22:14 Dose: 5,000 unit Documented by: Sodium Chloride (Nacl 0.9% 1000 Ml) 1,000 mls @ 100 mls/hr IV DIRECT [facility] Last Admin: 05/25/19 22:06 Dose: 100 mls/hr Documented by: Piperacillin Sod/Tazobactam Sod (Zosyn/Ns 4.5gm/100ml) 4.5 gm in 100 mls @ 200 mls/hr IV Q8HR [facility] Last Admin: 05/25/19 22:09 Dose: 200 mls/hr Documented by: Insulin Human Lispro (Humalog) 0 unit SUB-Q ACHS [facility]; Protocol Last Admin: 05/25/19 22:21 Dose: 6 unit Documented by: Lorazepam (Ativan) 1 mg IV Q1H PRN PRN Reason: Anxiety Last Admin: 05/25/19 19:32 Dose: 1 mg Documented by: Ondansetron HCl (Zofran) 4 mg IV Q6H PRN PRN Reason: Nausea And Vomiting Last Admin: 05/25/19 23:28 Dose: 4 mg Documented by: Oxycodone/Acetaminophen (Percocet 5/325) 1 tab PO Q6H PRN PRN Reason: Pain, Moderate (4-6) Last Admin: 05/25/19 23:26 Dose: 1 tab Documented by: Sodium Chloride (Sodium Chloride Flush Syringe 10 Ml) 10 ml IV BID [facility] Last Admin: 05/25/19 22:12 Dose: 10 ml Documented by: Sodium Chloride (Sodium Chloride Flush Syringe 10 Ml) 10 ml IV PRN PRN PRN Reason: LINE FLUSH Exam - Constitutional Vitals: Temp Pulse Resp BP Pulse Ox 99.9 F H 152 H 22 133/52 98 05/25/19 16:24 05/25/19 21:11 05/25/19 23:26 05/25/19 21:11 05/25/19 22:35 Results - Labs CBC & Chem 7: 05/25/19 22:43 05/24/19 18:46 Labs: Laboratory Last Values WBC 4.8 K/mm3 (4.5-11.0) 05/25/19 22:43 RBC 4.10 M/mm3 (3.65-5.03) 05/25/19 22:43 Hgb 15.5 gm/dl (10.1-14.3) H 05/24/19 18:46 Hct 43.8 % (30.3-42.9) H 05/24/19 18:46 MCV 87 fl (79-97) 05/25/19 22:43 MCH 30 pg (28-32) 05/25/19 22:43 MCHC 35 % (30-34) H 05/25/19 22:43 RDW 14.1 % (13.2-15.2) 05/25/19 22:43 Plt Count 115 K/mm3 (140-440) L 05/25/19 22:43 Lymph % (Auto) 8.4 % (13.4-35.0) L 05/25/19 22:43 [place] % (Auto) 8.0 % (0.0-7.3) H 05/25/19 22:43 Eos % (Auto) 0.1 % (0.0-4.3) 05/25/19 22:43 Baso % (Auto) 0.1 % (0.0-1.8) 05/25/19 22:43 Lymph # 0.4 K/mm3 (1.2-5.4) L 05/25/19 22:43 [place] # 0.4 K/mm3 (0.0-0.8) 05/25/19 22:43 Eos # 0.0 K/mm3 (0.0-0.4) 05/25/19 22:43 Baso # 0.0 K/mm3 (0.0-0.1) 05/25/19 22:43 Seg Neutrophils % 83.4 % (40.0-70.0) H 05/25/19 22:43 Seg Neutrophils # 4.0 K/mm3 (1.8-7.7) 05/25/19 22:43 D-Dimer 265.03 ng/mlDDU (0-234) H 05/24/19 23:20 ABG pH 7.384 pH Units (7.350-7.450) 05/25/19 20:00 ABG pCO2 26.2 mm Hg 05/25/19 20:00 ABG pO2 99.5 mm Hg (80.0-90.0) H 05/25/19 20:00 ABG HCO3 15.3 mmol/L (20.0-26.0) L 05/25/19 20:00 ABG O2 Saturation 97.7 % (95.0-99.0) 05/25/19 20:00 ABG O2 Content 17.7 (0.0-44) 05/25/19 20:00 ABG Base Excess -8.1 mmol/L (-2.0-3.0) L 05/25/19 20:00 ABG Hemoglobin 13.1 gm/dl (12.0-16.0) 05/25/19 20:00 ABG Carboxyhemoglobin 1.8 % (0.0-5.0) 05/25/19 20:00 ABG Methemoglobin 0.6 % (0.0-1.5) 05/25/19 20:00 Oxyhemoglobin 95.3 % (95.0-99.0) 05/25/19 20:00 FiO2 50 % 05/25/19 20:00 Sodium 133 mmol/L (137-145) L 05/24/19 18:46 Potassium 4.3 mmol/L (3.6-5.0) 05/24/19 18:46 Chloride 95.7 mmol/L (98-107) L 05/24/19 18:46 Carbon Dioxide 21 mmol/L (22-30) L 05/24/19 18:46 Anion Gap 21 mmol/L 05/24/19 18:46 BUN 7 mg/dL (7-17) 05/24/19 18:46 Creatinine 0.5 mg/dL (0.7-1.2) L 05/24/19 18:46 Estimated GFR > 60 ml/min 05/24/19 18:46 BUN/Creatinine Ratio 14 % 05/24/19 18:46 Glucose 392 mg/dL (65-100) H 05/24/19 18:46 POC Glucose 344 (70-105) H 05/25/19 22:26 Hemoglobin A1c 11.0 % (4-6) H 05/25/19 02:32 Lactic Acid 1.60 mmol/L (0.7-2.0) 05/24/19 18:46 Calcium 9.6 mg/dL (8.4-10.2) 05/24/19 18:46 Total Bilirubin 1.10 mg/dL (0.1-1.2) 05/24/19 18:46 AST 16 units/L (5-40) 05/24/19 18:46 ALT 27 units/L (7-56) 05/24/19 18:46 Alkaline Phosphatase 155 units/L (35-129) H 05/24/19 18:46 Total Creatine Kinase 19 units/L (30-135) L 05/25/19 02:32 CK-MB (CK-2) < 1.0 ng/mL (0.0-4.0) 05/25/19 02:32 CK-MB (CK-2) Rel Index 5.2 (0-4) H 05/25/19 02:32 Troponin T < 0.010 ng/mL (0.00-0.029) 05/25/19 02:32 Total Protein 7.5 g/dL (6.3-8.2) 05/24/19 18:46 Albumin 4.6 g/dL (3.9-5) 05/24/19 18:46 Albumin/Globulin Ratio 1.6 % 05/24/19 18:46 Urine Color Yellow (Yellow) 05/24/19 19:20 Urine Turbidity Clear (Clear) 05/24/19 19:20 Urine pH 6.0 (5.0-7.0) 05/24/19 19:20 Ur Specific [place] 1.038 (1.003-1.030) H 05/24/19 19:20 Urine Protein <15 mg/dl mg/dL (Negative) 05/24/19 19:20 Urine Glucose (UA) >=500 mg/dL (Negative) 05/24/19 19:20 Urine Ketones 20 mg/dL (Negative) 05/24/19 19:20 Urine Blood Sm (Negative) 05/24/19 19:20 Urine Nitrite Neg (Negative) 05/24/19 19:20 Urine Bilirubin Neg (Negative) 05/24/19 19:20 Urine Urobilinogen < 2.0 mg/dL (<2.0) 05/24/19 19:20 Ur Leukocyte Esterase Sm (Negative) 05/24/19 19:20 Urine WBC (Auto) 23.0 /HPF (0.0-6.0) H 05/24/19 19:20 Urine RBC (Auto) 5.0 /HPF (0.0-6.0) 05/24/19 19:20 U Epithel Cells (Auto) < 1.0 /HPF (0-13.0) 05/24/19 19:20 Urine Bacteria (Auto) 1+ /HPF (Negative) 05/24/19 19:20 Urine Mucus Few /HPF 05/24/19 19:20 Urine Opiates Screen Presumptive negative 05/24/19 19:20 Urine Methadone Screen Presumptive negative 05/24/19 19:20 Ur Barbiturates Screen Presumptive negative 05/24/19 19:20 Ur Phencyclidine Scrn Presumptive negative 05/24/19 19:20 Ur Amphetamines Screen Presumptive negative 05/24/19 19:20 U Benzodiazepines Scrn Presumptive negative 05/24/19 19:20 Urine Cocaine Screen Presumptive negative 05/24/19 19:20 U Marijuana (THC) Screen Presumptive negative 05/24/19 19:20 Drugs of Abuse Note Disclamer 05/24/19 19:20
[2019-05-25 03:02] LABS: Creatine Kinase MB < 1.0 ng/mL (0.0-4.0)
[2019-05-25] MEDS: SODIUM CHLORIDE 0.9% 1000 ML 1,000 ML IV SCH ×3 (03:06→22:06)
[2019-05-25] MEDS: ACETAMINOPHEN 325 MG TAB PO PRN ×2 (03:06→10:27)
[2019-05-25] MEDS: PIPERACILLIN/TAZOBACTAM 3.375 3.375 GM/50 ML BAG IV SCH (03:15)
--- NOTE | 2019-05-25 06:24 | Ultrasound Report ---
ULTRASOUND RENAL INDICATION / CLINICAL INFORMATION: Pyelonephritis, or back pain. COMPARISON: None available. FINDINGS: RIGHT KIDNEY: - Length = 12.7 cm. [Normal > 9.0 cm] - Parenchymal Thickness = 1.7 cm. [Normal > 1.5 cm] - Echogenicity: Normal -- hypoechoic or isoechoic to liver/spleen. - Hydronephrosis: None. - Cyst or mass: No significant abnormality. LEFT KIDNEY: - Length = 13.8 cm. [Normal > 9.0 cm] - Parenchymal Thickness = 2.0 cm. [Normal > 1.5 cm] - Echogenicity: Normal -- hypoechoic or isoechoic to liver/spleen. - Hydronephrosis: None. - Cyst or mass: No significant abnormality. URINARY BLADDER: No significant abnormality. ADDITIONAL FINDINGS: Mild diffuse increased echogenicity of the liver parenchyma compared to the righ t renal cortex. IMPRESSION: 1. No urinary tract abnormality is seen sonographically. 2. Mild diffuse fatty infiltration of the liver. Renal Parenchymal Thickness Parenchyma = Cortex + Medullary Pyramid - Normal >= 1.5 cm - Mild thinning = 1.0-1.49 cm - Moderate thinning = 0.5-0.99 cm - Severe thinning < 0.5 cm Signer Name: Manuel Meredith MD Signed: 05/25/2019 6:19 AM Workstation Name: [id number]
[2019-05-25] MEDS ORDERED: oxyCODONE /ACETAMINOPHEN 5-325MG TAB ONE (07:30)
[2019-05-25] MEDS ORDERED: ONDANSETRON 4 MG/2 ML INJ ONE (07:30)
[2019-05-25] MEDS ORDERED: INSULIN LISPRO 100 UNIT/ML SUB-Q ONE (07:31)
[2019-05-25] MEDS: ONDANSETRON 4 MG/2 ML INJ IV PRN ×2 (07:34→23:28)
[2019-05-25] MEDS: oxyCODONE /ACETAMINOPHEN 5-325MG TAB PO PRN ×3 (08:30→23:26)
[2019-05-25] MEDS: INSULIN LISPRO 100 UNIT/ML SUB-Q SCH ×4 (09:00→22:21)
[2019-05-25] MEDS ORDERED: SODIUM CHLORIDE 0.9% 1000 ML 1,000 ML ONE (10:24)
[2019-05-25] MEDS ORDERED: DOCUSATE SODIUM 100 MG CAP ONE (10:24)
[2019-05-25] MEDS ORDERED: ACETAMINOPHEN 325 MG TAB ONE (10:24)
[2019-05-25] MEDS ORDERED: HEPARIN 5,000 UNIT/1 ML VIAL ONE (10:25)
[2019-05-25] MEDS: DOCUSATE SODIUM 100 MG CAP PO SCH ×2 (10:26→22:17)
[2019-05-25] MEDS: HEPARIN 5,000 UNIT/1 ML VIAL SUB-Q SCH ×2 (10:28→22:14)
[2019-05-25] MEDS: PIPERACIL/TAZOBACTA 4.5/NS 100 4.5 GM/100 ML VIAL IV SCH ×2 (15:00→22:09)
[2019-05-25] MEDS ORDERED: LORazepam 2 MG/ML VIAL IV PRN (19:21)
[2019-05-25] MEDS ORDERED: ACETAMINOPHEN 650 MG RECT SUPP PR ONE (19:21)
[2019-05-25] MEDS ORDERED: ALBUTEROL 2.5 MG/3 ML NEBU IH PRN (19:57)
--- NOTE | 2019-05-25 20:03 | Event Note ---
Date: 05/25/19 Code Med called per nurse patient was unresponsive with saturation in low to mid to low 80s on 2 L supplemental oxygen. At the time of my assessment patient is on nonrebreather mask with saturation of 89%. Stat ABG and CXR ordered. Patient is resting comfortably and responsive. Will transfer to [facility] for close monitoring
[2019-05-25 20:18] LABS: ABG Base Excess -8.1 mmol/L (-2.0-3.0); ABG HCO3 15.3 mmol/L (20.0-26.0); ABG Methemoglobin 0.6 % (0.0-1.5); ABG Oxygen Saturation 97.7 % (95.0-99.0); ABG PCO2 26.2 mm Hg; ABG PH 7.384 pH Units (7.350-7.450); ABG PO2 99.5 mm Hg (80.0-90.0)
--- NOTE | 2019-05-25 20:21 | XRay Report ---
CHEST 1 VIEW INDICATION / CLINICAL INFORMATION: desat,. COMPARISON: 05/24/2019 FINDINGS: SUPPORT DEVICES: None. HEART / MEDIASTINUM: No significant abnormality. LUNGS / PLEURA: Left lung remains clear. There is now moderate density in the right mid and right low er lungs not seen previously consistent with developing pneumonia or aspiration. No edema or effusion s. No pneumothorax. ADDITIONAL FINDINGS: No significant additional findings. IMPRESSION: 1 Developing right lung pneumonia Signer Name: Chad Mason MD Signed: 05/25/2019 8:17 PM Workstation Name: [id number]
[2019-05-25 23:40] LABS: Basophils % (Auto) 0.1 % (0.0-1.8); Eosinophils % (Auto) 0.1 % (0.0-4.3); Hematocrit 35.8 % (30.3-42.9); Hemoglobin 12.4 gm/dl (10.1-14.3); Lymphocytes # (Auto) 0.4 K/mm3 (1.2-5.4); Lymphocytes % (Auto) 8.4 % (13.4-35.0); Mean Corpuscular HGB Conc 35 % (30-34); Mean Corpuscular Volume 87 fl (79-97); Monocytes # (Auto) 0.4 K/mm3 (0.0-0.8); Platelet Count 115 K/mm3 (140-440); Red Cell Distribution Width 14.1 % (13.2-15.2)
[2019-05-26] LABS: Alanine Aminotransferase 38 units/L (7-56); BUN/Creatinine Ratio 20; Blood Urea Nitrogen 10 mg/dL (7-17); Calcium 9.1 mg/dL (8.4-10.2); Hemolysis Index 7
[2019-05-26 04:29] LABS: Basophils % (Auto) 0.2 % (0.0-1.8); Eosinophils % (Auto) 0.1 % (0.0-4.3); Hematocrit 33.8 % (30.3-42.9); Hemoglobin 11.9 gm/dl (10.1-14.3); Lymphocytes # (Auto) 0.7 K/mm3 (1.2-5.4); Mean Corpuscular HGB Conc 35 % (30-34); Mean Corpuscular Volume 87 fl (79-97); Monocytes # (Auto) 0.3 K/mm3 (0.0-0.8); Monocytes % (Auto) 5.1 % (0.0-7.3); Platelet Count 128 K/mm3 (140-440); Red Cell Distribution Width 14.1 % (13.2-15.2)
[2019-05-26 04:45] LABS: BUN/Creatinine Ratio 18; Blood Urea Nitrogen 9 mg/dL (7-17); Calcium 9.2 mg/dL (8.4-10.2); Hemolysis Index 1
[2019-05-26] MEDS: PIPERACIL/TAZOBACTA 4.5/NS 100 4.5 GM/100 ML VIAL IV SCH ×3 (06:23→22:11)
[2019-05-26] MEDS: ACETAMINOPHEN 325 MG TAB PO SCH ×6 (08:02→18:27)
[2019-05-26] MEDS: INSULIN LISPRO 100 UNIT/ML SUB-Q SCH ×4 (08:57→22:13)
[2019-05-26] MEDS: INSULIN GLARGINE 100 UNITS/ML SUB-Q SCH ×2 (10:07→22:12)
[2019-05-26] MEDS: HEPARIN 5,000 UNIT/1 ML VIAL SUB-Q SCH ×2 (10:08→22:11)
[2019-05-26] MEDS: DOCUSATE SODIUM 100 MG CAP PO SCH ×2 (10:08→22:12)
--- NOTE | 2019-05-26 12:50 | Progress Note ---
Assessment and Plan Assessment and plan: 48-year-old woman with hypertension diabetes, chronic liver disease who presents to the hospital flank pain fever and generalized weakness x3 days. Sepsis/UTI Urine cultures growing gram-negative's, continue empiric antibiotics and IV fluids Persistent sinus tachycardia and anxiety Suspect hyperthyroidism Stat thyroid function tests were ordered 3 hours ago, still waiting for the lab to perform them. I have spoken to the lab and he assured me to be done as soon as possible. In the meantime we will start the patient on propranolol empirically until the test are back if they confirm hyperthyroidism will add methimazole. Diabetes Consistent carbohydrate diet, sliding scale insulin, add basal insulin, check A1c Of note patient had a CT angiogram of her chest which was negative for PE Self-reported left lower extremity edema; obtain Dopplers Mild hyponatremia; continue IV fluids Hypokalemia; resolved without any specific intervention DVT prophylaxis; heparin subcu History Interval history: Complaining of anxiety, states that she had left lower extremity swelling, but is improved now. She continues to have flank pain which is improving. Review of systems Constitutional: No fevers, no malaise, no joint pains CVS: No chest pain, no orthopnea, no pedal edema GI: , no diarrhea, no vomiting, no constipation Respiratory: , no wheezing, no coughing Hospitalist Physical - Physical exam Narrative exam: General.: Appears well, no distress, nontoxic HEENT: Moist mucous membranes, extraocular muscles intact, no lymphadenopathy Neck: supple Cardiac: S1-S2 heard Lungs: clear to auscultation bilaterally Abdomen: soft , nontender, nondistended, bowel sounds positive Extremities: no edema clubbing or cyanosis Skin: no rash or lesions Neurologic: no gross focal deficits Psych: calm, and cooperative - Constitutional Vitals: Temp Pulse Resp BP Pulse Ox 99.5 F 131 H 21 114/48 98 05/26/19 12:00 05/26/19 12:00 05/26/19 12:00 05/26/19 12:05/26/19 12:00 KAIT score - Kait Score Age > 65: (0) No Aspirin use within the Past 7 Days: (0) No 3 or more CAD Risk Factors: (0) No 2 or more Angina events in past 24 hrs: (0) No Known CAD with more than 50% Stenosis: (0) No Elevated Cardiac Markers: (0) No ST Deviation Greater than 0.5mm: (0) No KAIT Score: 0 Results - Labs CBC & Chem 7: 05/26/19 04:02 05/26/19 04:02 Labs: Laboratory Last Values WBC 5.2 K/mm3 (4.5-11.0) 05/26/19 04:02 RBC 3.90 M/mm3 (3.65-5.03) 05/26/19 04:02 Hgb 11.9 gm/dl (10.1-14.3) 05/26/19 04:02 Hct 33.8 % (30.3-42.9) 05/26/19 04:02 MCV 87 fl (79-97) 05/26/19 04:02 MCH 30 pg (28-32) 05/26/19 04:02 MCHC 35 % (30-34) H 05/26/19 04:02 RDW 14.1 % (13.2-15.2) 05/26/19 04:02 Plt Count 128 K/mm3 (140-440) L 05/26/19 04:02 Lymph % (Auto) 13.0 % (13.4-35.0) L 05/26/19 04:02 [place] % (Auto) 5.1 % (0.0-7.3) 05/26/19 04:02 Eos % (Auto) 0.1 % (0.0-4.3) 05/26/19 04:02 Baso % (Auto) 0.2 % (0.0-1.8) 05/26/19 04:02 Lymph # 0.7 K/mm3 (1.2-5.4) L 05/26/19 04:02 [place] # 0.3 K/mm3 (0.0-0.8) 05/26/19 04:02 Eos # 0.0 K/mm3 (0.0-0.4) 05/26/19 04:02 Baso # 0.0 K/mm3 (0.0-0.1) 05/26/19 04:02 Seg Neutrophils % 81.6 % (40.0-70.0) H 05/26/19 04:02 Seg Neutrophils # 4.3 K/mm3 (1.8-7.7) 05/26/19 04:02 D-Dimer 265.03 ng/mlDDU (0-234) H 05/24/19 23:20 ABG pH 7.384 pH Units (7.350-7.450) 05/25/19 20:00 ABG pCO2 26.2 mm Hg 05/25/19 20:00 ABG pO2 99.5 mm Hg (80.0-90.0) H 05/25/19 20:00 ABG HCO3 15.3 mmol/L (20.0-26.0) L 05/25/19 20:00 ABG O2 Saturation 97.7 % (95.0-99.0) 05/25/19 20:00 ABG O2 Content 17.7 (0.0-44) 05/25/19 20:00 ABG Base Excess -8.1 mmol/L (-2.0-3.0) L 05/25/19 20:00 ABG Hemoglobin 13.1 gm/dl (12.0-16.0) 05/25/19 20:00 ABG Carboxyhemoglobin 1.8 % (0.0-5.0) 05/25/19 20:00 ABG Methemoglobin 0.6 % (0.0-1.5) 05/25/19 20:00 Oxyhemoglobin 95.3 % (95.0-99.0) 05/25/19 20:00 FiO2 50 % 05/25/19 20:00 Sodium 140 mmol/L (137-145) 05/26/19 04:02 Potassium 4.0 mmol/L (3.6-5.0) 05/26/19 04:02 Chloride 108.1 mmol/L (98-107) H 05/26/19 04:02 Carbon Dioxide 15 mmol/L (22-30) L 05/26/19 04:02 Anion Gap 21 mmol/L 05/26/19 04:02 BUN 9 mg/dL (7-17) 05/26/19 04:02 Creatinine 0.5 mg/dL (0.7-1.2) L 05/26/19 04:02 Estimated GFR > 60 ml/min 05/26/19 04:02 BUN/Creatinine Ratio 18 % 05/26/19 04:02 Glucose 270 mg/dL (65-100) H 05/26/19 04:02 POC Glucose 212 (70-105) H 05/26/19 11:41 Hemoglobin A1c 11.0 % (4-6) H 05/25/19 02:32 Lactic Acid 1.60 mmol/L (0.7-2.0) 05/24/19 18:46 Calcium 9.2 mg/dL (8.4-10.2) 05/26/19 04:02 Total Bilirubin 1.10 mg/dL (0.1-1.2) 05/25/19 22:43 AST 38 units/L (5-40) 05/25/19 22:43 ALT 38 units/L (7-56) 05/25/19 22:43 Alkaline Phosphatase 159 units/L (35-129) H 05/25/19 22:43 Total Creatine Kinase 19 units/L (30-135) L 05/25/19 02:32 CK-MB (CK-2) < 1.0 ng/mL (0.0-4.0) 05/25/19 02:32 CK-MB (CK-2) Rel Index 5.2 (0-4) H 05/25/19 02:32 Troponin T < 0.010 ng/mL (0.00-0.029) 05/25/19 02:32 Total Protein 6.5 g/dL (6.3-8.2) 05/25/19 22:43 Albumin 3.0 g/dL (3.9-5) L 05/25/19 22:43 Albumin/Globulin Ratio 0.9 % 05/25/19 22:43 Urine Color Yellow (Yellow) 05/24/19 19:20 Urine Turbidity Clear (Clear) 05/24/19 19:20 Urine pH 6.0 (5.0-7.0) 05/24/19 19:20 Ur Specific [place] 1.038 (1.003-1.030) H 05/24/19 19:20 Urine Protein <15 mg/dl mg/dL (Negative) 05/24/19 19: Urine Glucose (UA) >=500 mg/dL (Negative) 05/24/19 19:20 Urine Ketones 20 mg/dL (Negative) 05/24/19 19:20 Urine Blood Sm (Negative) 05/24/19 19:20 Urine Nitrite Neg (Negative) 05/24/19 19: Urine Bilirubin Neg (Negative) 01/16/20 19:20 Urine Urobilinogen < 2.0 mg/dL (<2.0) 05/24/19 19:20 Ur Leukocyte Esterase Sm (Negative) 05/24/19 19:20 Urine WBC (Auto) 23.0 /HPF (0.0-6.0) H 05/24/19 19:20 Urine RBC (Auto) 5.0 /HPF (0.0-6.0) 05/24/19 19:20 U Epithel Cells (Auto) < 1.0 /HPF (0-13.0) 05/24/19 19:20 Urine Bacteria (Auto) 1+ /HPF (Negative) 05/24/19 19:20 Urine Mucus Few /HPF 05/24/19 19:20 Urine Opiates Screen Presumptive negative 05/24/19 19:20 Urine Methadone Screen Presumptive negative 05/24/19 19:20 Ur Barbiturates Screen Presumptive negative 05/24/19 19:20 Ur Phencyclidine Scrn Presumptive negative 05/24/19 19:20 Ur Amphetamines Screen Presumptive negative 05/24/19 19:20 U Benzodiazepines Scrn Presumptive negative 05/24/19 19:20 Urine Cocaine Screen Presumptive negative 05/24/19 19:20 U Marijuana (THC) Screen Presumptive negative 05/24/19 19:20 Drugs of Abuse Note Disclamer 05/24/19 19:20 Active Medications - Current Medications Current Medications: Generic Name Dose Route Start Last Admin Trade Name Freq PRN Reason Stop Dose Admin Acetaminophen 650 mg 05/25/19 19:16 05/26/19 11:58 Tylenol PO 650 mg Q4H [facility]OMERO Administration Albuterol 2.5 mg 05/25/19 19:57 05/25/19 20:00 Proventil IH 2.5 mg Q4HRT PRN Administration Shortness Of Breath Dextrose 50 ml 05/25/19 02:10 D50w (25gm) Syringe IV Q30MIN PRN Hypoglycemia Protocol Docusate Sodium 100 mg 05/25/19 10:00 05/26/19 10:08 Colace PO 100 mg BID HOMERO Administration Heparin Sodium (Porcine) 5,000 unit 05/25/19 10:00 05/26/19 10:08 Heparin SUB-Q 5,000 unit Q12HR [facility]OMERO Administration Sodium Chloride 1,000 mls @ 100 mls/hr 05/25/19 02:30 05/25/19 22:06 Nacl 0.9% 1000 Ml IV 100 mls/hr DIRECT [facility]OMERO Administration Piperacillin Sod/Tazobactam Sod 4.5 gm in 100 mls @ 200 mls/hr 05/25/19 14:00 05/26/19 06:23 Zosyn/Ns 4.5gm/100ml IV 200 mls/hr Q8HR [facility] Administration Sodium Bicarbonate 150 meq/ 1,150 mls @ 42 mls/hr 05/26/19 09:00 Dextrose IV DIRECT [facility]OMERO Insulin Glargine 11 units 05/26/19 08:03 05/26/19 10:07 Lantus SUB-Q 11 units Q12H [facility] Administration Insulin Human Lispro 0 unit 05/25/19 07:30 05/26/19 11:59 Humalog SUB-Q 3 unit ACHS HOMERO Administration Protocol Lorazepam 1 mg 05/25/19 19:21 05/25/19 19:32 Ativan IV 1 mg Q1H PRN Administration Anxiety Ondansetron HCl 4 mg 05/25/19 02:10 05/25/19 23:28 Zofran IV 4 mg Q6H PRN Administration Nausea And Vomiting Oxycodone/Acetaminophen 1 tab 05/25/19 02:10 05/25/19 23:26 Percocet 5/325 PO 1 tab Q6H PRN Administration Pain, Moderate (4-6) Propranolol HCl 40 mg 05/26/19 14:00 Inderal PO Q8HR [facility] Sodium Chloride 10 ml 05/25/19 10:00 05/26/19 10:08 Sodium Chloride Flush Syringe 10 Ml IV 10 ml BID HOMERO Administration Sodium Chloride 10 ml 05/25/19 02:10 Sodium Chloride Flush Syringe 10 Ml IV PRN PRN LINE FLUSH Nutrition/Malnutrition Assess - Dietary Evaluation Nutrition/Malnutrition Findings: Nutrition Notes Start: 05/26/19 11:18 Freq: Status: Active Protocol: Document 05/26/19 11:19 LP (Rec: 05/26/19 11:21 LP [id number]) Nutrition 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 Pt states eating well now and [employer]. Denies wt changes. Pt denies education right now but would like education befor being discharged. Nutrition Intervention Follow-Up By: 05/28/19 Additional Comments Follow for DM diet education
[2019-05-26] MEDS: oxyCODONE /ACETAMINOPHEN 5-325MG TAB PO PRN (13:42)
[2019-05-26] MEDS: SODIUM BICARBONATE 150 MEQ in DEXTROSE 5% IN WATER 1,000 ML IV SCH (14:00)
[2019-05-26] MEDS: PROPRANOLOL 40 MG TAB PO SCH ×2 (14:01→22:11)
[2019-05-26] MEDS: ONDANSETRON 4 MG/2 ML INJ IV PRN (18:27)
--- NOTE | 2019-05-26 18:29 | Vascular Lab Report ---
DUPLEX DOPPLER LOWER EXTREMITY VEINS, BILATERAL INDICATION: LE edema. TECHNIQUE: Duplex doppler imaging was performed through the veins of both lower extremities using venous gaston awais and other maneuvers. COMPARISON: None available. FINDINGS: Right Common Femoral vein: Negative. Right Superficial Femoral vein: Negative. Right Popliteal vein: Negative. Right Calf veins: Negative. Left Common Femoral vein: Negative. Left Superficial Femoral vein: Negative. Left Popliteal vein: Negative. Left Calf veins: Negative. Additional findings: None. IMPRESSION: 1. No sonographic evidence for DVT in either lower extremity. Signer Name: Chad Mason MD Signed: 05/26/2019 6:24 PM Workstation Name: [id number]
[2019-05-26] MEDS: methIMAzole 5 MG TAB PO SCH (22:13)
[2019-05-27] MEDS: ACETAMINOPHEN 325 MG TAB PO SCH ×7 (00:26→21:51)
[2019-05-27] MEDS: PROPRANOLOL 40 MG TAB PO SCH ×5 (06:21→22:00)
[2019-05-27] MEDS: methIMAzole 5 MG TAB PO SCH ×3 (06:21→21:53)
[2019-05-27] MEDS: PIPERACIL/TAZOBACTA 4.5/NS 100 4.5 GM/100 ML VIAL IV SCH ×2 (06:21→14:51)
[2019-05-27] MEDS: oxyCODONE /ACETAMINOPHEN 5-325MG TAB PO PRN (07:29)
[2019-05-27] MEDS: PIPERACILLIN/TAZOBACTAM 3.375 3.375 GM/50 ML BAG IV SCH (07:44)
[2019-05-27] MEDS: INSULIN LISPRO 100 UNIT/ML SUB-Q SCH ×4 (07:49→23:53)
[2019-05-27] MEDS: HEPARIN 5,000 UNIT/1 ML VIAL SUB-Q SCH ×2 (09:20→21:53)
[2019-05-27] MEDS: DOCUSATE SODIUM 100 MG CAP PO SCH ×2 (09:20→21:52)
[2019-05-27] MEDS: INSULIN GLARGINE 100 UNITS/ML SUB-Q SCH ×2 (09:20→23:53)
[2019-05-27] MEDS ORDERED: METOCLOPRAMIDE 10 MG/2 ML INJ IV PRN (13:43)
[2019-05-27] MEDS ORDERED: PROMETHAZINE 25 MG RECT SUPP PR PRN (13:43)
--- NOTE | 2019-05-27 14:31 | Consultation ---
History of Present Illness - Reason for Consult Consult date: 05/27/19 sepsis Requesting physician: BREANA GALVEZ - History of Present Illness 48 y/o female with history of uncontrolled diabetes, hypertension admitted on 05/24/2019 due to 3-day history of body aches, nausea, frequency and mild dry cough. was recently fighting the flu. She thought she got it too. However, noted severe left lower pain and flank pain. Her home glucose 200-300s. Recently moved to [place]. She does not have a PCP. In the ED, temp 103, HR 139, R 20, BP 144/71. WBC 10.6. Hg 15.5. Plat 220. Creat 0.5. UA wbc 23/smal LE. Blood culture 05/24/2019 no growth today. Urine culture 05/24/2019 Klebsiella. Initial CXR negative. Repeat CXR with RLL consolidation. CTA showed left focal pyelonephritis. Review of Systems: positive in bold print General: fever, chills, malaise Cutaneous: rash, pruritus Head: headaches or injury Eyes: changes in vision, eye pain, double vision Ears: ear pain, ear discharge, ringing or hearing loss Nose: nose bleeding, stuffiness Mouth & throat: bleeding gums, horseness, no dental problems, or swollen glands Neck: no pain, node enlargement/lumps, tyroid enlargement or tenderness Respiratory: SOB, cough, CRUZ, wheezing, sputum, hemoptysis, left chest pain Cardiovascular: chest pain, leg edema, cyanosis, CRUZ, orthopnea Musculoskeletal: edema Gastrointestinal: nausea, vomiting, hematemesis, diarrhea, constipation, melena, bright red blood in stools, fecal incontinence, jaundice Genitourinary/Reproductive: frequent urination, dysuria, hematuria, incontinence Neurogical: seizures, headaches, weakness, paresthesias, loss of speech or vision; memory loss, vertigo, tremors, numbness Psychiatric: stable mood; excessive anxiety, sadness or moodiness Past History Past Medical History: diabetes (Insulin-dependent), hypertension, liver disease (Cirrhosis) Past Surgical History: cholecystectomy, Other (Liver biopsy) Social history: Family history: cancer (Grandmother), diabetes (Maternal and paternal side of family), hypertension (Father) Medications and Allergies Allergies Allergy/AdvReac Type Severity Reaction Status Date / Time fentanyl Allergy Nausea Verified 07/08/17 01:06 tramadol Allergy Hives Verified 07/08/17 01:06 Home Medications Medication Instructions Recorded Confirmed Last Taken Type Lisinopril [Zestril TAB] 20 mg PO QDAY #30 tab 08/24/17 Unknown Rx Insulin Glargine,Hum.rec.anlog 80 unit SQ QHS 05/25/19 05/25/19 Unknown History [Lantus Solostar] LORazepam [Lorazepam] 0.5 mg PO QDAY 05/25/19 05/25/19 Unknown History Victoza 2-Jovon 2 units SQ QDAY 05/25/19 05/25/19 Unknown History Active Meds: Active Medications Acetaminophen (Tylenol) 650 mg PO Q4H [facility] Last Admin: 05/27/19 11:49 Dose: Not Given Documented by: Albuterol (Proventil) 2.5 mg IH Q4HRT PRN PRN Reason: Shortness Of Breath Last Admin: 05/25/19 20:00 Dose: 2.5 mg Documented by: Dextrose (D50w (25gm) Syringe) 50 ml IV Q30MIN PRN; Protocol PRN Reason: Hypoglycemia Docusate Sodium (Colace) 100 mg PO BID [facility] Last Admin: 05/27/19 09:20 Dose: 100 mg Documented by: Heparin Sodium (Porcine) (Heparin) 5,000 unit SUB-Q Q12HR [facility] Last Admin: 05/27/19 09:20 Dose: 5,000 unit Documented by: Sodium Chloride (Nacl 0.9% 1000 Ml) 1,000 mls @ 100 mls/hr IV DIRECT [facility] Last Admin: 05/25/19 22:06 Dose: 100 mls/hr Documented by: Piperacillin Sod/Tazobactam Sod (Zosyn/Ns 4.5gm/100ml) 4.5 gm in 100 mls @ 200 mls/hr IV Q8HR [facility] Last Admin: 05/27/19 06:21 Dose: 200 mls/hr Documented by: Sodium Bicarbonate 150 meq/ (Dextrose) 1,150 mls @ 42 mls/hr IV DIRECT [facility] Last Admin: 05/26/19 14:00 Dose: 42 mls/hr Documented by: Insulin Glargine (Lantus) 30 units SUB-Q HS [facility] Insulin Human Lispro (Humalog) 0 unit SUB-Q ACHS [facility]; Protocol Last Admin: 05/27/19 11:48 Dose: 4 unit Documented by: Lorazepam (Ativan) 1 mg IV Q1H PRN PRN Reason: Anxiety Last Admin: 05/25/19 19:32 Dose: 1 mg Documented by: Methimazole (Tapazole) 5 mg PO Q8HR [facility] Last Admin: 05/27/19 06:21 Dose: 5 mg Documented by: Metoclopramide HCl (Reglan) 10 mg IV Q6H PRN PRN Reason: Nausea And Vomiting Ondansetron HCl (Zofran) 4 mg IV Q6H PRN PRN Reason: Nausea And Vomiting Last Admin: 05/26/19 18:27 Dose: 4 mg Documented by: Oxycodone/Acetaminophen (Percocet 5/325) 1 tab PO Q6H PRN PRN Reason: Pain, Moderate (4-6) Last Admin: 05/27/19 07:29 Dose: 1 tab Documented by: Promethazine HCl (Phenergan) 25 mg ND Q6H PRN PRN Reason: Nausea And Vomiting Propranolol HCl (Inderal) 40 mg PO Q8HR [facility] Last Admin: 05/27/19 06:21 Dose: 40 mg Documented by: Sodium Chloride (Sodium Chloride Flush Syringe 10 Ml) 10 ml IV BID [facility] Last Admin: 05/27/19 09:20 Dose: 10 ml Documented by: Sodium Chloride (Sodium Chloride Flush Syringe 10 Ml) 10 ml IV PRN PRN PRN Reason: LINE FLUSH Physical Examination - Physical Exam Narrative exam: General appearance: Alert in NAD Eyes: anicteric sclerae, moist conjunctivae; no lid-lag; PERRLA HENT: Atraumatic; oropharynx clear with moist mucous membranes and no mucosal ulcerations/no oral thrush; normal hard and soft palate. Lungs: scattered crackles CV: RRR no murmur Abdomen: Soft, non-tender; no masses or hepatosplenomegaly Extremities: no edema, no cyanosis Skin: No rash. Psych: Appropriate affect, alert and oriented to person, place and time. Neuro: alert and oriented x 3. Moving all extermities - Constitutional Vitals: Vital Signs Temp Pulse Resp BP Pulse Ox 99 F 95 H 20 133/76 95 05/27/19 08:00 05/27/19 10:01 05/27/19 10:01 05/27/19 10:01 05/27/19 10:01 Temperature -Last 24 Hours Temperature 99 F Temperature 98.9 F Temperature 98.9 F Temperature 98.1 F Temperature 98.9 F Results - Labs CBC & Chem 7: 05/26/19 04:02 05/26/19 04:02 Labs: Abnormal lab results 05/26/19 05/26/19 05/27/19 Range/Units 16:41 21:31 07:44 POC Glucose 267 H 280 H 228 H (70-105) 05/27/19 Range/Units 11:44 POC Glucose 275 H (70-105) Assessment and Plan Cultures: blood culture 05/24/2019 no growth today urine culture 05/24/2019 Klebsiella Assessment: 48 y/o female with history of uncontrolled diabetes, hypertension admitted on 05/24/2019 due to 3-day history of body aches, nausea, frequency and mild dry cough: #Sepsis: present on admission with fever, tachycardia; source pyelonephritis and possible post influenza pneumonia. #Pyelonephritis: urine culture positive for Klebsiella #Possible post influenza pneumonia: with recent flu symptoms. Recommendations: check Influenza Ag and PCR start tamiflu 75 mg po bid total 5 days stop zosyn start ceftraixone 2 gm IB q day start azithromycin 500 mg ib q day antibiotics duration 10-14 days to cover pneumonia and pyelonephritis diabetes education Will follow. Zeynep Servin MD Infectious Diseases Landscaping Specialist [facility], [place], [facility] M [phone] O [phone]
--- NOTE | 2019-05-27 16:51 | Progress Note ---
Assessment and Plan Assessment and plan: 48-year-old woman with hypertension diabetes, chronic liver disease who presents to the hospital flank pain fever and generalized weakness x3 days. Sepsis/UTI and right lung bacterial pneumonia Urine cultures growing Klebsiella, ID input appreciated, continue antibiotics Hyperthyroidism Methimazole and propranolol. Outpatient endocrinology follow-up. Diabetes with persistent hyperglycemia. Consistent carbohydrate diet, optimize insulins. A1c is 11. Add metformin if patient able to tolerate it. Of note patient had a CT angiogram of her chest which was negative for PE Self-reported left lower extremity edema; Dopplers were negative for DVT Mild hyponatremia; received IV fluids. Hypokalemia; resolved without any specific intervention DVT prophylaxis; heparin subcu History Interval history: Flank pain is improving. Anxiety and nervousness improving. Heart rate has improved. Review of systems Constitutional: No fevers, no malaise, no joint pains CVS: No chest pain, no orthopnea, no pedal edema GI: , no diarrhea, no vomiting, no constipation Respiratory: , no wheezing, no coughing Hospitalist Physical - Physical exam Narrative exam: General.: Appears well, no distress, nontoxic HEENT: Moist mucous membranes, extraocular muscles intact, no lymphadenopathy Neck: supple Cardiac: S1-S2 heard Lungs: clear to auscultation bilaterally Abdomen: soft , nontender, nondistended, bowel sounds positive Extremities: no edema clubbing or cyanosis Skin: no rash or lesions Neurologic: no gross focal deficits Psych: calm, and cooperative - Constitutional Vitals: Temp Pulse Resp BP Pulse Ox 98.4 F 96 H 17 131/56 98 05/27/19 12:00 05/27/19 15:01 05/27/19 15:01 05/27/19 15:01 05/27/19 15:01 KAIT score - Kait Score Age > 65: (0) No Aspirin use within the Past 7 Days: (0) No 3 or more CAD Risk Factors: (0) No 2 or more Angina events in past 24 hrs: (0) No Known CAD with more than 50% Stenosis: (0) No Elevated Cardiac Markers: (0) No ST Deviation Greater than 0.5mm: (0) No KAIT Score: 0 Results - Labs CBC & Chem 7: 05/26/19 04:02 05/26/19 04:02 Labs: Laboratory Last Values WBC 5.2 K/mm3 (4.5-11.0) 05/26/19 04:02 RBC 3.90 M/mm3 (3.65-5.03) 05/26/19 04:02 Hgb 11.9 gm/dl (10.1-14.3) 05/26/19 04:02 Hct 33.8 % (30.3-42.9) 05/26/19 04:02 MCV 87 fl (79-97) 05/26/19 04:02 MCH 30 pg (28-32) 05/26/19 04:02 MCHC 35 % (30-34) H 05/26/19 04:02 RDW 14.1 % (13.2-15.2) 05/26/19 04:02 Plt Count 128 K/mm3 (140-440) L 05/26/19 04:02 Lymph % (Auto) 13.0 % (13.4-35.0) L 05/26/19 04:02 [place] % (Auto) 5.1 % (0.0-7.3) 05/26/19 04:02 Eos % (Auto) 0.1 % (0.0-4.3) 05/26/19 04:02 Baso % (Auto) 0.2 % (0.0-1.8) 05/26/19 04:02 Lymph # 0.7 K/mm3 (1.2-5.4) L 05/26/19 04:02 [place] # 0.3 K/mm3 (0.0-0.8) 05/26/19 04:02 Eos # 0.0 K/mm3 (0.0-0.4) 05/26/19 04:02 Baso # 0.0 K/mm3 (0.0-0.1) 05/26/19 04:02 Seg Neutrophils % 81.6 % (40.0-70.0) H 05/26/19 04:02 Seg Neutrophils # 4.3 K/mm3 (1.8-7.7) 05/26/19 04:02 D-Dimer 265.03 ng/mlDDU (0-234) H 05/24/19 23:20 ABG pH 7.384 pH Units (7.350-7.450) 05/25/19 20:00 ABG pCO2 26.2 mm Hg 05/25/19 20:00 ABG pO2 99.5 mm Hg (80.0-90.0) H 05/25/19 20:00 ABG HCO3 15.3 mmol/L (20.0-26.0) L 05/25/19 20:00 ABG O2 Saturation 97.7 % (95.0-99.0) 05/25/19 20:00 ABG O2 Content 17.7 (0.0-44) 05/25/19 20:00 ABG Base Excess -8.1 mmol/L (-2.0-3.0) L 05/25/19 20:00 ABG Hemoglobin 13.1 gm/dl (12.0-16.0) 05/25/19 20:00 ABG Carboxyhemoglobin 1.8 % (0.0-5.0) 05/25/19 20:00 ABG Methemoglobin 0.6 % (0.0-1.5) 05/25/19 20:00 Oxyhemoglobin 95.3 % (95.0-99.0) 05/25/19 20:00 FiO2 50 % 05/25/19 20:00 Sodium 140 mmol/L (137-145) 05/26/19 04:02 Potassium 4.0 mmol/L (3.6-5.0) 05/26/19 04:02 Chloride 108.1 mmol/L (98-107) H 05/26/19 04:02 Carbon Dioxide 15 mmol/L (22-30) L 05/26/19 04:02 Anion Gap 21 mmol/L 05/26/19 04:02 BUN 9 mg/dL (7-17) 05/26/19 04:02 Creatinine 0.5 mg/dL (0.7-1.2) L 05/26/19 04:02 Estimated GFR > 60 ml/min 05/26/19 04:02 BUN/Creatinine Ratio 18 % 05/26/19 04:02 Glucose 270 mg/dL (65-100) H 05/26/19 04:02 POC Glucose 286 (70-105) H 05/27/19 16:47 Hemoglobin A1c 11.0 % (4-6) H 05/25/19 02:32 Lactic Acid 1.60 mmol/L (0.7-2.0) 05/24/19 18:46 Calcium 9.2 mg/dL (8.4-10.2) 05/26/19 04:02 Total Bilirubin 1.10 mg/dL (0.1-1.2) 05/25/19 22:43 AST 38 units/L (5-40) 05/25/19 22:43 ALT 38 units/L (7-56) 05/25/19 22:43 Alkaline Phosphatase 159 units/L (35-129) H 05/25/19 22:43 Total Creatine Kinase 19 units/L (30-135) L 05/25/19 02:32 CK-MB (CK-2) < 1.0 ng/mL (0.0-4.0) 05/25/19 02:32 CK-MB (CK-2) Rel Index 5.2 (0-4) H 05/25/19 02:32 Troponin T < 0.010 ng/mL (0.00-0.029) 05/25/19 02:32 Total Protein 6.5 g/dL (6.3-8.2) 05/25/19 22:43 Albumin 3.0 g/dL (3.9-5) L 05/25/19 22:43 Albumin/Globulin Ratio 0.9 % 05/25/19 22:43 TSH < 0.005 mlU/mL (0.270-4.200) L 05/26/19 13:03 Free T4 2.03 ng/dL (0.76-1.46) H 05/26/19 13:03 Thyroxine (T4) 10.7 ug/dL (4.0-12.0) 05/26/19 13:03 Urine Color Yellow (Yellow) 05/24/19 19:20 Urine Turbidity Clear (Clear) 05/24/19 19:20 Urine pH 6.0 (5.0-7.0) 05/24/19 19: Ur Specific [place] 1.038 (1.003-1.030) H 05/24/19 19:20 Urine Protein <15 mg/dl mg/dL (Negative) 05/24/19 19: Urine Glucose (UA) >=500 mg/dL (Negative) 05/24/19 19:20 Urine Ketones 20 mg/dL (Negative) 05/24/19 19: Urine Blood Sm (Negative) 05/24/19 19:20 Urine Nitrite Neg (Negative) 05/24/19 19:20 Urine Bilirubin Neg (Negative) 05/24/19 19:20 Urine Urobilinogen < 2.0 mg/dL (<2.0) 05/24/19 19:20 Ur Leukocyte Esterase Sm (Negative) 05/24/19 19:20 Urine WBC (Auto) 23.0 /HPF (0.0-6.0) H 05/24/19 19:20 Urine RBC (Auto) 5.0 /HPF (0.0-6.0) 05/24/19 19:20 U Epithel Cells (Auto) < 1.0 /HPF (0-13.0) 05/24/19 19:20 Urine Bacteria (Auto) 1+ /HPF (Negative) 05/24/19 19:20 Urine Mucus Few /HPF 05/24/19 19:20 Urine Opiates Screen Presumptive negative 05/24/19 19:20 Urine Methadone Screen Presumptive negative 05/24/19 19:20 Ur Barbiturates Screen Presumptive negative 05/24/19 19:20 Ur Phencyclidine Scrn Presumptive negative 05/24/19 19:20 Ur Amphetamines Screen Presumptive negative 05/24/19 19:20 U Benzodiazepines Scrn Presumptive negative 05/24/19 19:20 Urine Cocaine Screen Presumptive negative 05/24/19 19:20 U Marijuana (THC) Screen Presumptive negative 05/24/19 19:20 Drugs of Abuse Note Disclamer 05/24/19 19:20 Active Medications - Current Medications Current Medications: Generic Name Dose Route Start Last Admin Trade Name Freq PRN Reason Stop Dose Admin Acetaminophen 650 mg 05/25/19 19:16 05/27/19 16:44 Tylenol PO Not Given Q4H HOMERO Albuterol 2.5 mg 05/25/19 19:57 05/25/19 20:00 Proventil IH 2.5 mg Q4HRT PRN Administration Shortness Of Breath Dextrose 50 ml 05/25/19 02:10 D50w (25gm) Syringe IV Q30MIN PRN Hypoglycemia Protocol Docusate Sodium 100 mg 05/25/19 10:00 05/27/19 09:20 Colace PO 100 mg BID HOMERO Administration Heparin Sodium (Porcine) 5,000 unit 05/25/19 10:00 05/27/19 09:20 Heparin SUB-Q 5,000 unit Q12HR HOMERO Administration Sodium Chloride 1,000 mls @ 100 mls/hr 05/25/19 02:30 05/25/19 22:06 Nacl 0.9% 1000 Ml IV 100 mls/hr DIRECT HOMERO Administration Sodium Bicarbonate 150 meq/ 1,150 mls @ 42 mls/hr 05/26/19 09:00 05/26/19 14:00 Dextrose IV 42 mls/hr DIRECT HOMERO Administration Ceftriaxone Sodium 2 gm in 100 mls @ 200 mls/hr 05/27/19 16:00 Rocephin/Ns 2 Gm/100 Ml IV Q24HR HOMERO Protocol Insulin Glargine 30 units 05/27/19 22:00 Lantus SUB-Q HS HOMERO Insulin Human Lispro 0 unit 05/25/19 07:30 05/27/19 16:43 Humalog SUB-Q 4 unit ACHS HOMERO Administration Protocol Lorazepam 1 mg 05/25/19 19:21 05/25/19 19:32 Ativan IV 1 mg Q1H PRN Administration Anxiety Methimazole 5 mg 05/26/19 22:00 05/27/19 14:51 Tapazole PO 5 mg Q8HR HOMERO Administration Metoclopramide HCl 10 mg 05/27/19 13:43 Reglan IV Q6H PRN Nausea And Vomiting Ondansetron HCl 4 mg 05/25/19 02:10 05/26/19 18:27 Zofran IV 4 mg Q6H PRN Administration Nausea And Vomiting Oseltamivir Phosphate 75 mg 05/27/19 16:00 Tamiflu PO 05/31/19 22:01 BID HOMERO Oxycodone/Acetaminophen 1 tab 05/25/19 02:10 05/27/19 07:29 Percocet 5/325 PO 1 tab Q6H PRN Administration Pain, Moderate (4-6) Promethazine HCl 25 mg 05/27/19 13:43 Phenergan [place] Q6H PRN Nausea And Vomiting Propranolol HCl 40 mg 05/26/19 14:00 05/27/19 14:56 Inderal PO Not Given Q8HR HOMERO Sodium Chloride 10 ml 05/25/19 10:00 05/27/19 09:20 Sodium Chloride Flush Syringe 10 Ml IV 10 ml BID HOMERO Administration Sodium Chloride 10 ml 05/25/19 02:10 Sodium Chloride Flush Syringe 10 Ml IV PRN PRN LINE FLUSH Nutrition/Malnutrition Assess - Dietary Evaluation Nutrition/Malnutrition Findings: Nutrition Notes Start: 05/26/19 11:18 Freq: Status: Active Protocol: Document 05/26/19 11:19 LP (Rec: 05/26/19 11:21 LP [id number]) Nutrition Notes Need for Assessment generated from: frame cleaner Initial or Follow up Brief Note Current Diagnosis Diabetes,Hypertension Other Pertinent Diagnosis liver cirrhosis, UTI Current Diet Cardiac/consistent CHO Labs/Tests A1c 11 BG 270 Subjective/Other Information Screen for MST. Pt states eating well now and [employer]IM[employer] HEL[employer]. Denies wt changes. Pt denies education right now but would like education befor being discharged. Nutrition Intervention Follow-Up By: 05/28/19 Additional Comments Follow for DM diet education
[2019-05-27] MEDS: SODIUM BICARBONATE 150 MEQ in DEXTROSE 5% IN WATER 1,000 ML IV SCH (21:54)
[2019-05-27] MEDS: OSELTAMIVIR 75 MG CAP PO SCH (23:01)
[2019-05-28] MEDS: ACETAMINOPHEN 325 MG TAB PO SCH ×4 (04:22→13:17)
[2019-05-28] MEDS: methIMAzole 5 MG TAB PO SCH ×3 (06:26→22:22)
[2019-05-28] MEDS: PROPRANOLOL 40 MG TAB PO SCH ×3 (06:26→22:19)
[2019-05-28] MEDS: oxyCODONE /ACETAMINOPHEN 5-325MG TAB PO PRN (06:37)
--- NOTE | 2019-05-28 08:15 | Progress Note ---
Assessment and Plan Assessment and plan: 48-year-old woman with hypertension diabetes, chronic liver disease who presents to the hospital flank pain fever and generalized weakness x3 days. Sepsis/UTI and right lung bacterial pneumonia Urine cultures growing Klebsiella, ID input appreciated, continue antibiotics. pneumonia likely due to gram-positive bacteria Hyperthyroidism Methimazole and propranolol. Outpatient endocrinology follow-up. Diabetes with persistent hyperglycemia. Consistent carbohydrate diet, optimize insulins. A1c is 11. Optimize insulins, metformin. Of note patient had a CT angiogram of her chest which was negative for PE Self-reported left lower extremity edema; Dopplers were negative for DVT Mild hyponatremia; received IV fluids. Hypokalemia; resolved without any specific intervention DVT prophylaxis; heparin subcu Tentative discharge home tomorrow. History Interval history: Flank pain is improving. Anxiety and nervousness improving. Heart rate has improved. Review of systems Constitutional: No fevers, no malaise, no joint pains CVS: No chest pain, no orthopnea, no pedal edema GI: , no diarrhea, no vomiting, no constipation Respiratory: , no wheezing, no coughing Hospitalist Physical - Physical exam Narrative exam: General.: Appears well, no distress, nontoxic HEENT: Moist mucous membranes, extraocular muscles intact, no lymphadenopathy Neck: supple Cardiac: S1-S2 heard Lungs: clear to auscultation bilaterally Abdomen: soft , nontender, nondistended, bowel sounds positive Extremities: no edema clubbing or cyanosis Skin: no rash or lesions Neurologic: no gross focal deficits Psych: calm, and cooperative - Constitutional Vitals: Temp Pulse Resp BP Pulse Ox 98.5 F 98 H 16 128/75 96 05/27/19 22:40 05/27/19 22:40 05/27/19 22:40 05/27/19 22:40 05/27/19 22:40 KAIT score - Kait Score Age > 65: (0) No Aspirin use within the Past 7 Days: (0) No 3 or more CAD Risk Factors: (0) No 2 or more Angina events in past 24 hrs: (0) No Known CAD with more than 50% Stenosis: (0) No Elevated Cardiac Markers: (0) No ST Deviation Greater than 0.5mm: (0) No KAIT Score: 0 Results - Labs CBC & Chem 7: 05/26/19 04:02 05/26/19 04:02 Labs: Laboratory Last Values WBC 5.2 K/mm3 (4.5-11.0) 05/26/19 04:02 RBC 3.90 M/mm3 (3.65-5.03) 05/26/19 04:02 Hgb 11.9 gm/dl (10.1-14.3) 05/26/19 04:02 Hct 33.8 % (30.3-42.9) 05/26/19 04:02 MCV 87 fl (79-97) 05/26/19 04:02 MCH 30 pg (28-32) 05/26/19 04:02 MCHC 35 % (30-34) H 05/26/19 04:02 RDW 14.1 % (13.2-15.2) 05/26/19 04:02 Plt Count 128 K/mm3 (140-440) L 05/26/19 04:02 Lymph % (Auto) 13.0 % (13.4-35.0) L 05/26/19 04:02 [place] % (Auto) 5.1 % (0.0-7.3) 05/26/19 04:02 Eos % (Auto) 0.1 % (0.0-4.3) 05/26/19 04:02 Baso % (Auto) 0.2 % (0.0-1.8) 05/26/19 04:02 Lymph # 0.7 K/mm3 (1.2-5.4) L 05/26/19 04:02 [place] # 0.3 K/mm3 (0.0-0.8) 05/26/19 04:02 Eos # 0.0 K/mm3 (0.0-0.4) 05/26/19 04:02 Baso # 0.0 K/mm3 (0.0-0.1) 05/26/19 04:02 Seg Neutrophils % 81.6 % (40.0-70.0) H 05/26/19 04:02 Seg Neutrophils # 4.3 K/mm3 (1.8-7.7) 05/26/19 04:02 D-Dimer 265.03 ng/mlDDU (0-234) H 05/24/19 23:20 ABG pH 7.384 pH Units (7.350-7.450) 05/25/19 20:00 ABG pCO2 26.2 mm Hg 05/25/19 20:00 ABG pO2 99.5 mm Hg (80.0-90.0) H 05/25/19 20:00 ABG HCO3 15.3 mmol/L (20.0-26.0) L 05/25/19 20:00 ABG O2 Saturation 97.7 % (95.0-99.0) 05/25/19 20:00 ABG O2 Content 17.7 (0.0-44) 05/25/19 20:00 ABG Base Excess -8.1 mmol/L (-2.0-3.0) L 05/25/19 20:00 ABG Hemoglobin 13.1 gm/dl (12.0-16.0) 05/25/19 20:00 ABG Carboxyhemoglobin 1.8 % (0.0-5.0) 05/25/19 20:00 ABG Methemoglobin 0.6 % (0.0-1.5) 05/25/19 20:00 Oxyhemoglobin 95.3 % (95.0-99.0) 05/25/19 20:00 FiO2 50 % 05/25/19 20:00 Sodium 140 mmol/L (137-145) 05/26/19 04:02 Potassium 4.0 mmol/L (3.6-5.0) 05/26/19 04:02 Chloride 108.1 mmol/L (98-107) H 05/26/19 04:02 Carbon Dioxide 15 mmol/L (22-30) L 05/26/19 04:02 Anion Gap 21 mmol/L 05/26/19 04:02 BUN 9 mg/dL (7-17) 05/26/19 04:02 Creatinine 0.5 mg/dL (0.7-1.2) L 05/26/19 04:02 Estimated GFR > 60 ml/min 05/26/19 04:02 BUN/Creatinine Ratio 18 % 05/26/19 04:02 Glucose 270 mg/dL (65-100) H 05/26/19 04:02 POC Glucose 308 (70-105) H 05/28/19 07:30 Hemoglobin A1c 11.0 % (4-6) H 05/25/19 02:32 Lactic Acid 1.60 mmol/L (0.7-2.0) 05/24/19 18:46 Calcium 9.2 mg/dL (8.4-10.2) 05/26/19 04:02 Total Bilirubin 1.10 mg/dL (0.1-1.2) 05/25/19 22:43 AST 38 units/L (5-40) 05/25/19 22:43 ALT 38 units/L (7-56) 05/25/19 22:43 Alkaline Phosphatase 159 units/L (35-129) H 05/25/19 22:43 Total Creatine Kinase 19 units/L (30-135) L 05/25/19 02:32 CK-MB (CK-2) < 1.0 ng/mL (0.0-4.0) 05/25/19 02:32 CK-MB (CK-2) Rel Index 5.2 (0-4) H 05/25/19 02:32 Troponin T < 0.010 ng/mL (0.00-0.029) 05/25/19 02:32 Total Protein 6.5 g/dL (6.3-8.2) 05/25/19 22:43 Albumin 3.0 g/dL (3.9-5) L 05/25/19 22:43 Albumin/Globulin Ratio 0.9 % 05/25/19 22:43 TSH < 0.005 mlU/mL (0.270-4.200) L 05/26/19 13:03 Free T4 2.03 ng/dL (0.76-1.46) H 05/26/19 13:03 Thyroxine (T4) 10.7 ug/dL (4.0-12.0) 05/26/19 13:03 Urine Color Yellow (Yellow) 05/24/19 19:20 Urine Turbidity Clear (Clear) 05/24/19 19:20 Urine pH 6.0 (5.0-7.0) 05/24/19 19:20 Ur Specific [place] 1.038 (1.003-1.030) H 05/24/19 19:20 Urine Protein <15 mg/dl mg/dL (Negative) 05/24/19 19:20 Urine Glucose (UA) >=500 mg/dL (Negative) 05/24/19 19:20 Urine Ketones 20 mg/dL (Negative) 05/24/19 19:20 Urine Blood Sm (Negative) 05/24/19 19:20 Urine Nitrite Neg (Negative) 05/24/19 19:20 Urine Bilirubin Neg (Negative) 05/24/19 19:20 Urine Urobilinogen < 2.0 mg/dL (<2.0) 05/24/19 19:20 Ur Leukocyte Esterase Sm (Negative) 05/24/19 19:20 Urine WBC (Auto) 23.0 /HPF (0.0-6.0) H 05/24/19 19:20 Urine RBC (Auto) 5.0 /HPF (0.0-6.0) 05/24/19 19:20 U Epithel Cells (Auto) < 1.0 /HPF (0-13.0) 05/24/19 19:20 Urine Bacteria (Auto) 1+ /HPF (Negative) 05/24/19 19:20 Urine Mucus Few /HPF 05/24/19 19:20 Urine Opiates Screen Presumptive negative 05/24/19 19:20 Urine Methadone Screen Presumptive negative 05/24/19 19:20 Ur Barbiturates Screen Presumptive negative 05/24/19 19:20 Ur Phencyclidine Scrn Presumptive negative 05/24/19 19:20 Ur Amphetamines Screen Presumptive negative 05/24/19 19:20 U Benzodiazepines Scrn Presumptive negative 05/24/19 19:20 Urine Cocaine Screen Presumptive negative 05/24/19 19:20 U Marijuana (THC) Screen Presumptive negative 05/24/19 19:20 Drugs of Abuse Note Disclamer 05/24/19 19:20 Influenza A (Rapid) Negative (Negative) 05/27/19 16:50 Influenza A (RT-PCR) Negative (Negative) 05/27/19 16:50 Influenza B (Rapid) Negative (Negative) 05/27/19 16:50 Influenza B (RT-PCR) Negative (Negative) 05/27/19 16:50 Active Medications - Current Medications Current Medications: Generic Name Dose Route Start Last Admin Trade Name Freq PRN Reason Stop Dose Admin Acetaminophen 650 mg 05/25/19 19:16 05/28/19 04:23 Tylenol PO Not Given Q4H HOMERO Albuterol 2.5 mg 05/25/19 19:57 05/25/19 20:00 Proventil IH 2.5 mg Q4HRT PRN Administration Shortness Of Breath Dextrose 50 ml 05/25/19 02:10 D50w (25gm) Syringe IV Q30MIN PRN Hypoglycemia Protocol Docusate Sodium 100 mg 05/25/19 10:00 05/27/19 21:52 Colace PO 100 mg BID HOMERO Administration Heparin Sodium (Porcine) 5,000 unit 05/25/19 10:00 05/27/19 21:53 Heparin SUB-Q 5,000 unit Q12HR HOMERO Administration Sodium Bicarbonate 150 meq/ 1,150 mls @ 42 mls/hr 05/26/19 09:00 05/27/19 21:54 Dextrose IV 42 mls/hr DIRECT HOMERO Administration Ceftriaxone Sodium 2 gm in 100 mls @ 200 mls/hr 05/27/19 16:00 Rocephin/Ns 2 Gm/100 Ml IV Q24HR HOMERO Protocol Insulin Glargine 30 units 05/27/19 22:00 05/27/19 23:53 Lantus SUB-Q 30 units HS HOMERO Administration Insulin Human Lispro 0 unit 05/25/19 07:30 05/27/19 23:53 Humalog SUB-Q 2 unit ACHS HOMERO Administration Protocol Insulin Human Lispro 5 unit 05/28/19 11:30 Humalog SUB-Q AC HOMERO Lorazepam 1 mg 05/25/19 19:21 05/25/19 19:32 Ativan IV 1 mg Q1H PRN Administration Anxiety Metformin HCl 500 mg 05/28/19 09:00 Glucophage Xr PO QDDIAB HOMERO Methimazole 5 mg 05/26/19 22:00 05/28/19 06:26 Tapazole PO 5 mg Q8HR HOMERO Administration Metoclopramide HCl 10 mg 05/27/19 13:43 Reglan IV Q6H PRN Nausea And Vomiting Ondansetron HCl 4 mg 05/25/19 02:10 05/26/19 18:27 Zofran IV 4 mg Q6H PRN Administration Nausea And Vomiting Oseltamivir Phosphate 75 mg 05/27/19 16:00 05/27/19 23:01 Tamiflu PO 05/31/19 22:01 75 mg BID HOMERO Administration Oxycodone/Acetaminophen 1 tab 05/25/19 02:10 05/28/19 06:37 Percocet 5/325 PO 1 tab Q6H PRN Administration Pain, Moderate (4-6) Promethazine HCl 25 mg 05/27/19 13:43 Phenergan [place] Q6H PRN Nausea And Vomiting Propranolol HCl 40 mg 05/26/19 14:00 05/28/19 06:26 Inderal PO Not Given Q8HR HOMERO Sodium Chloride 10 ml 05/25/19 10:00 05/27/19 21:53 Sodium Chloride Flush Syringe 10 Ml IV 10 ml BID HOMERO Administration Sodium Chloride 10 ml 05/25/19 02:10 Sodium Chloride Flush Syringe 10 Ml IV PRN PRN LINE FLUSH Nutrition/Malnutrition Assess - Dietary Evaluation Nutrition/Malnutrition Findings: Nutrition Notes Start: 05/26/19 11:18 Freq: Status: Active Protocol: Document 05/26/19 11:19 LP (Rec: 05/26/19 11:21 LP [id number]) Nutrition Notes Need for Assessment generated from: photographers' model Initial or Follow up Brief Note Current Diagnosis Diabetes,Hypertension Other Pertinent Diagnosis liver cirrhosis, UTI Current Diet Cardiac/consistent CHO Labs/Tests A1c 11 BG 270 Subjective/Other Information Screen for MST. 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 Pt denies education right now but would like education befor being discharged. Nutrition Intervention Follow-Up By: 05/28/19 Additional Comments Follow for DM diet education
[2019-05-28] MEDS: cefTRIAXone/NS 2 GM/100 ML 2 GM/100 ML BAG IV SCH ×2 (08:34→09:34)
[2019-05-28] MEDS: OSELTAMIVIR 75 MG CAP PO SCH ×2 (08:35→09:34)
[2019-05-28] MEDS: INSULIN LISPRO 100 UNIT/ML SUB-Q SCH ×6 (08:51→22:22)
[2019-05-28] MEDS: DOCUSATE SODIUM 100 MG CAP PO SCH ×2 (09:33→22:21)
[2019-05-28] MEDS: HEPARIN 5,000 UNIT/1 ML VIAL SUB-Q SCH ×2 (09:34→22:21)
[2019-05-28] MEDS: metFORMIN XR 500MG TAB PO SCH (09:44)
[2019-05-28] MEDS ORDERED: ACETAMINOPHEN 325 MG TAB PO PRN (12:00)
--- NOTE | 2019-05-28 15:04 | Progress Note ---
Assessment and Plan Cultures: blood culture 05/24/2019 no growth today urine culture 05/24/2019 Klebsiella influenza negative Assessment: 48 y/o female with history of uncontrolled diabetes, hypertension admitted on 05/24/2019 due to 3-day history of body aches, nausea, frequency and mild dry cough: #Sepsis: present on admission with fever, tachycardia; source pyelonephritis and possible post influenza pneumonia. #Pyelonephritis: urine culture positive for Klebsiella #Possible post influenza pneumonia: with recent flu symptoms. Recommendations: stop Tamiflu continue ceftraixone 2 gm IB q day continue azithromycin 500 mg ib q day antibiotics duration 14 days to cover pneumonia and pyelonephritis diabetes education on discharge please send with Cefdinir 300 mg every 12 hours to complete 14 days. Stop date: 06/10/2019 infectious disease will sign off, please call with questions. Eda Valencia MD [facility] ([facility]) M: [phone] O: [phone] F: [phone] Subjective Date of service: 05/28/19 Interval history: Afebrile, normal white count. No new issues. Objective - Exam Narrative Exam: General appearance: Alert in NAD Eyes: anicteric sclerae, moist conjunctivae; no lid-lag; Lungs: scattered crackles CV: RRR no murmur Abdomen: Soft, non-tender; no masses or hepatosplenomegaly Extremities: no edema, no cyanosis Skin: No rash. Psych: Appropriate affect, alert and oriented to person, place and time. Neuro: alert and oriented x 3. Moving all extremities - Constitutional Vitals: Vital Signs Temp Pulse Resp BP Pulse Ox 98.5 F 103 H 19 131/66 97 05/28/19 11:53 05/28/19 11:53 05/28/19 11:53 05/28/19 11:53 05/28/19 11:53 Temperature -Last 24 Hours Temperature 98.5 F Temperature 98.6 F Temperature 98.5 F Temperature 98.7 F - Labs CBC & Chem 7: 05/26/19 04:02 05/26/19 04:02 Labs: Abnormal lab results 05/27/19 05/27/19 05/28/19 Range/Units 16:47 22:51 07:30 POC Glucose 286 H 192 H 308 H (70-105) 05/28/19 Range/Units 12:03 POC Glucose 212 H (70-105)
[2019-05-28] MEDS: INSULIN GLARGINE 100 UNITS/ML SUB-Q SCH (22:20)
[2019-05-29] MEDS: methIMAzole 5 MG TAB PO SCH ×2 (07:00→14:00)
[2019-05-29] MEDS: PROPRANOLOL 40 MG TAB PO SCH ×2 (07:00→14:00)
[2019-05-29] MEDS: INSULIN LISPRO 100 UNIT/ML SUB-Q SCH ×3 (07:30→16:30)
[2019-05-29 08:09] LABS: Basophils % (Auto) 0.4 % (0.0-1.8); Eosinophils # (Auto) 0.1 K/mm3 (0.0-0.4); Eosinophils % (Auto) 1.7 % (0.0-4.3); Hematocrit 32.9 % (30.3-42.9); Hemoglobin 11.5 gm/dl (10.1-14.3); Lymphocytes # (Auto) 1.3 K/mm3 (1.2-5.4); Lymphocytes % (Auto) 22.8 % (13.4-35.0); Mean Corpuscular HGB Conc 35 % (30-34); Mean Corpuscular Volume 85 fl (79-97); Monocytes # (Auto) 0.5 K/mm3 (0.0-0.8); Platelet Count 200 K/mm3 (140-440); Red Blood Count 3.88 M/mm3 (3.65-5.03); Red Cell Distribution Width 14.2 % (13.2-15.2)
[2019-05-29 08:28] LABS: BUN/Creatinine Ratio 13; Blood Urea Nitrogen 4 mg/dL (7-17); Calcium 8.9 mg/dL (8.4-10.2); Hemolysis Index 7
[2019-05-29] MEDS: metFORMIN XR 500MG TAB PO SCH (09:38)
[2019-05-29] MEDS: DOCUSATE SODIUM 100 MG CAP PO SCH (09:38)
[2019-05-29] MEDS: HEPARIN 5,000 UNIT/1 ML VIAL SUB-Q SCH (09:39)
[2019-05-29] MEDS ORDERED: POTASSIUM CHLORIDE ER 20 MEQ TAB PO ONE (10:00)
[2019-05-29] MEDS ORDERED: cefTRIAXone/NS 2 GM/100 ML 2 GM/100 ML BAG IV SCH (10:00)
--- NOTE | 2019-05-29 10:04 | Discharge Summary ---
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 Sepsis/UTI and right lung bacterial pneumonia Urine cultures growing Klebsiella, ID input appreciated, continue antibiotics. pneumonia likely due to gram-positive bacteria home on cefdnir to complete 14 day course Hyperthyroidism Methimazole and propranolol. Outpatient endocrinology follow-up. Diabetes with persistent hyperglycemia. Consistent carbohydrate diet, optimize insulins. A1c is 11. Optimize insulins, metformin. Of note patient had a CT angiogram of her chest which was negative for PE Self-reported left lower extremity edema; Dopplers were negative for DVT Mild hyponatremia; received IV fluids. Hypokalemia; repleted DVT prophylaxis; heparin subcu Disposition: -01 TO HOME OR SELFCARE Time spent for discharge: 33 mins Core Measure Documentation - Palliative Care Palliative Care/ Comfort Measures: Not Applicable - Core Measures Any of the following diagnoses?: none Exam - Constitutional Vitals: Temp Pulse Resp BP Pulse Ox 99.0 F 99 H 18 118/70 95 05/29/19 05:26 05/29/19 05:26 05/29/19 05:26 05/29/19 05:26 05/29/19 05:26 General appearance: Present: no acute distress, well-nourished - EENT Eyes: Present: PERRL ENT: hearing intact, clear oral mucosa - Neck Neck: Present: supple, normal ROM - Respiratory Respiratory effort: normal Respiratory: bilateral: CTA - Cardiovascular Heart Sounds: Present: S1 & S2. Absent: rub, click - Extremities Extremities: pulses symmetrical, No edema Peripheral Pulses: within normal limits - Abdominal General gastrointestinal: Present: soft, non-tender, non-distended, normal bowel sounds Female genitourinary: Present: normal - Integumentary Integumentary: Present: clear, warm, dry - Musculoskeletal Musculoskeletal: gait normal, strength equal bilaterally - Psychiatric Psychiatric: appropriate mood/affect, intact judgment & insight - Neurologic Neurologic: CNII-XII intact, moves all extremities Plan Follow up with: PRIMARY CARE, [Primary Care Provider] - 7 Days Prescriptions: Cefdinir 300 mg PO BID #22 capsule metFORMIN XR [Glucophage XR] 500 mg PO QDDIAB #90 tablet Potassium Chloride [K-Dur] 20 meq PO QDAY #7 tablet Insulin NPH/Regular [Novolin 70/30] 13 unit SQ BIDDIAB #1 vial oxyCODONE /ACETAMINOPHEN [Percocet 5/325 mg] 1 tab PO Q6H PRN #14 tablet PRN Reason: Pain, Moderate (4-6) Propranolol HCl 20 mg PO Q8H #90 tablet methIMAzole [Tapazole] 5 mg PO Q8HR #90 tablet lisinopriL [Zestril TAB] 10 mg PO QDAY #90 tablet
[2019-05-29] MEDS ORDERED: POTASSIUM CHLORIDE 40 MEQ in SODIUM CHLORIDE 0.45% 500 ML IV ONE (11:00)
[2019-05-29] MEDS ORDERED: AZITHROMYCIN 500 MG in SODIUM CHLORIDE 0.9% 250ML 250 ML IV SCH (12:00)
[2019-05-29 13:34] VITALS: BP 153/74
[2019-05-29] MEDS ORDERED: INSULIN GLARGINE 100 UNITS/ML SUB-Q SCH (22:00)
== END 2019-05-29 18:03 | disposition home or self-care (01) | DRG 871 ==
LOC: ED 17:51 → 3A 05-25 03:25 → IMCU 05-25 19:57 → 3A 05-27 17:00
PROVIDERS: ADMIT Internal Medicine; ATTEND Internal Medicine
PROC: 4A033R1 Measurement of Arterial Saturation, Peripheral, Percutaneous Approach (ICD-10-PCS; principal; 2019-05-25)
DX: A41.9 Sepsis, unspecified organism (principal); J15.9 Unspecified bacterial pneumonia; N10 Acute pyelonephritis; E87.1 Hypo-osmolality and hyponatremia; K74.60 Unspecified cirrhosis of liver; E11.65 Type 2 diabetes mellitus with hyperglycemia; E86.0 Dehydration; I10 Essential (primary) hypertension; E05.90 Thyrotoxicosis, unspecified without thyrotoxic crisis or storm; F41.9 Anxiety disorder, unspecified; E87.6 Hypokalemia; B96.1 Klebsiella pneumoniae [K. pneumoniae] as the cause of diseases classified elsewhere; Z90.49 Acquired absence of other specified parts of digestive tract
CPT/HCPCS: 36415; 36600; 71045; 71046; 71275; 76770; 80048; 80053; 80307; 81001; 82140; 82550; 82553; 82803; 82962; 83036; 83735; 84436; 84439; 84443; 84484; 85025; 85379; 87040; 87076; 87086; 87186; 87400; 93005; 93010; 93970; 94640; G0378; 87502; J0456; J0696; J1644; J1815; J1885; J2060; J2405; J2543; J3480; J7030; J7050; J7070; Q9967

== ENCOUNTER 2019-07-02 20:29 | Inpatient (IN) | payer OTHER ==
--- NOTE | 2019-07-02 21:02 | Event Note ---
ED Screening Note ED Screening Note: left flank pain left lower abd pain +dry cough states her left lung hurts states had a fever at home states three weeks ago had kidney infection and PNA no n/v/d she states she has pressure after urination PMHx DM, HTN allergy: fentanyl, tramadol LNNMP 06/28/2019 This initial assessment/diagnostic orders/clinical plan/treatment(s) is/are subject to change based on patients health status, clinical progression and re- assessment by fellow clinical providers in the ED. Further treatment and workup at subsequent clinical providers discretion. Patient/guardian urged not to elope from the ED as their condition may be serious if not clinically assessed and managed. Initial orders include: labs, UA, urine preg, CXR
[2019-07-02 21:21] LABS: HCG Qualitative,Urine Negative (Negative)
[2019-07-02 21:22] LABS: Bilirubin,Urine NEG (Negative); Blood,Urine MOD (Negative); Color,Urine Straw (Yellow); Mucus,Urine FEW /HPF; Protein,Urine <15 mg/dL mg/dL (Negative); Urobilinogen,Urine < 2.0 mg/dL (<2.0)
[2019-07-02 21:39] LABS: Basophils # (Auto) 0.1 K/mm3 (0.0-0.1); Basophils % (Auto) 0.6 % (0.0-1.8); Eosinophils # (Auto) 0.5 K/mm3 (0.0-0.4); Eosinophils % (Auto) 3.5 % (0.0-4.3); Hemoglobin 13.9 gm/dl (10.1-14.3); Lymphocytes % (Auto) 15.2 % (13.4-35.0); Mean Corpuscular HGB Conc 35 % (30-34); Mean Corpuscular Volume 87 fl (79-97); Monocytes # (Auto) 0.8 K/mm3 (0.0-0.8); Monocytes % (Auto) 5.8 % (0.0-7.3); Platelet Count 304 K/mm3 (140-440); Red Blood Count 4.63 M/mm3 (3.65-5.03); Red Cell Distribution Width 14.5 % (13.2-15.2)
[2019-07-02 22:02] LABS: Alanine Aminotransferase 26 units/L (7-56); Albumin 4.3 g/dL (3.9-5); BUN/Creatinine Ratio 16; Blood Urea Nitrogen 8 mg/dL (7-17); Calcium 9.4 mg/dL (8.4-10.2); Hemolysis Index 16
--- NOTE | 2019-07-02 22:57 | XRay Report ---
CHEST PA AND LATERAL VIEWS INDICATION: cough, recent PNA. COMPARISON: 05/25/2019 FINDINGS: Support devices: None. Heart: Within normal limits. Lungs/Pleura: There is mild peribronchial cuffing. No consolidation or effusion. IMPRESSION: 1. Lower airways disease. Signer Name: Omar Pascual MD Signed: 07/02/2019 10:53 PM Workstation Name: [id number]
[2019-07-02] MEDS ORDERED: PROPRANOLOL 40 MG TAB PO ONE (23:00)
[2019-07-02] MEDS ORDERED: MORPHINE 4 MG/1 ML INJ IV ONE (23:16)
[2019-07-02] MEDS ORDERED: SODIUM CHLORIDE 0.9% 1000 ML 2,000 ML IV ONE (23:16)
[2019-07-02] MEDS ORDERED: ACETAMINOPHEN 500 MG TAB PO ONE (23:17)
--- NOTE | 2019-07-02 23:17 | Emergency Department Report ---
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 Her past medical history includes hypertension, diabetes, chronic liver disease secondary to hyperglycemia, recently admitted to this hospital a few weeks ago for sepsis secondary to urinary tract infection and right lung bacterial pneumonia, diagnosed with Klebsiella, started on Cefdinir, was discharged, and indicates compliance with her antibiotic therapy. She also has a history of hyperthyroidism. She presents to the ER today with a primary complaint of nontraumatic left-sided flank pain, bilateral lower quadrant abdominal pain, increased urinary frequency, cough, fever, no nausea, no vomiting, no diarrhea, positive agitation, positive anxiety, malaise and fatigue. She also describes pain when she takes a deep breath. During her recent hospitalization, she had a CT scan of the chest which was negative for pulmonary embolism. She had a negative DVT study. She believes that her symptoms improved after her previous admission. Her left- sided pain has been going on for the past 2 or 3 days. Her symptoms are intermittent, getting worse, increased with palpation, range of motion, deep inspiration, and decreased with rest. -: Gradual, days(s) Location: back, abdomen Radiation: abdomen Quality: aching Consistency: other Improves with: other Worsens with: other - Related Data Previous Rx's Medication Instructions Recorded Last Taken Type Cefdinir 300 mg PO BID #22 capsule 05/29/19 Unknown Rx Insulin NPH/Regular [Novolin 70/30] 13 unit SQ BIDDIAB #1 vial 05/29/19 Unknown Rx Potassium Chloride [K-Dur] 20 meq PO QDAY #7 tablet 05/29/19 Unknown Rx Propranolol HCl 20 mg PO Q8H #90 tablet 05/29/19 Unknown Rx lisinopriL [Zestril TAB] 10 mg PO QDAY #90 tablet 05/29/19 Unknown Rx metFORMIN XR [Glucophage XR] 500 mg PO QDDIAB #90 tablet 05/29/19 Unknown Rx methIMAzole [Tapazole] 5 mg PO Q8HR #90 tablet 05/29/19 Unknown Rx Allergies Allergy/AdvReac Type Severity Reaction Status Date / Time fentanyl Allergy Nausea Verified 07/08/17 01:06 tramadol Allergy Hives Verified 07/08/17 01:06 ED Review of Systems ROS: Stated complaint: ABD PAIN ON LEFT SIDE Other details as noted in HPI Constitutional: fever, malaise, weakness Eyes: denies: eye discharge ENT: denies: congestion Respiratory: cough Cardiovascular: palpitations Gastrointestinal: abdominal pain Genitourinary: frequency. denies: dysuria Musculoskeletal: back pain Skin: denies: lesions Neurological: weakness Psychiatric: anxiety Hematological/Lymphatic: denies: easy bleeding ED Past Medical Hx - Past Medical History Hx Hypertension: Yes Hx Congestive Heart Failure: No Hx Diabetes: Yes Hx Liver Disease: Yes (Cirrhosis) Hx Asthma: No Hx COPD: No Additional medical history: Cirrhosis - Surgical History Hx Cholecystectomy: Yes Additional Surgical History: liver biopsy - Social History Smoking Status: Never Smoker Substance Use Type: None - Medications Home Medications: Home Medications Medication Instructions Recorded Confirmed Last Taken Type Cefdinir 300 mg PO BID #22 capsule 05/29/19 07/03/19 Unknown Rx Insulin NPH/Regular [Novolin 70/30] 13 unit SQ BIDDIAB #1 vial 05/29/19 07/03/19 Unknown Rx Potassium Chloride [K-Dur] 20 meq PO QDAY #7 tablet 05/29/19 07/03/19 Unknown Rx Propranolol HCl 20 mg PO Q8H #90 tablet 05/29/19 07/03/19 Unknown Rx lisinopriL [Zestril TAB] 10 mg PO QDAY #90 tablet 05/29/19 07/03/19 Unknown Rx metFORMIN XR [Glucophage XR] 500 mg PO QDDIAB #90 tablet 05/29/19 07/03/19 Unknown Rx methIMAzole [Tapazole] 5 mg PO Q8HR #90 tablet 05/29/19 07/03/19 Unknown Rx ED Physical Exam - General Limitations: No Limitations General appearance: alert, anxious - Head Head exam: Present: atraumatic, normocephalic - Eye Eye exam: Present: normal appearance, EOMI. Absent: nystagmus - ENT ENT exam: Present: normal exam, normal orophraynx, normal external ear exam - Neck Neck exam: Present: normal inspection, full ROM. Absent: tenderness, meningismus - Respiratory Respiratory exam: Present: normal lung sounds bilaterally, other (Faint rhonchi noted in the left hemithorax). Absent: respiratory distress, chest wall tenderness, accessory muscle use, decreased breath sounds, prolonged expiratory - Cardiovascular Cardiovascular Exam: Present: normal rhythm, tachycardia, normal heart sounds. Absent: systolic murmur, diastolic murmur, rubs, gallop - GI/Abdominal GI/Abdominal exam: Present: soft, tenderness, other (There is mild diffuse lower abdominal tenderness. There is no rebound, guarding or peritoneal signs. There is left-sided CVA tenderness). Absent: distended, guarding, rebound, rigid, pulsatile mass - Extremities Exam Extremities exam: Present: normal inspection, full ROM, other (2+ pulses noted in the bilateral upper and lower extremities. There is no palpable cord. negative Homans sign. Muscular compartments are soft. The pelvis is stable.). Absent: pedal edema, calf tenderness - Back Exam Back exam: Present: normal inspection, full ROM, CVA tenderness (L). Absent: tenderness, CVA tenderness (R) - Neurological Exam Neurological exam: Present: alert, oriented X3, other (There is no facial droop. The tongue is midline. Extraocular movements are intact bilaterally. There is 5 out of 5 strength in bilateral upper and lower extremities. Sensation is intact to light touch bilateral upper and lower extremities. ). Absent: motor sensory deficit - Psychiatric Psychiatric exam: Present: anxious - Skin Skin exam: Present: warm, dry, intact, normal color. Absent: rash ED Course Vital Signs 07/02/19 07/02/19 07/02/19 20:45 20:58 23:00 Temperature 99.8 F H 99.8 F H 100.5 F H Pulse Rate 115 H 112 H 112 H Respiratory 18 18 19 Rate Blood Pressure 159/79 159/79 Blood Pressure 134/71 [Left] O2 Sat by Pulse 99 100 99 Oximetry 07/02/19 07/02/19 07/02/19 23:06 23:16 23:30 Temperature Pulse Rate 113 H 119 H 116 H Respiratory 14 17 Rate Blood Pressure 134/71 134/71 Blood Pressure [Left] O2 Sat by Pulse 97 99 Oximetry 07/02/19 07/02/19 07/03/19 23:48 23:57 00:00 Temperature Pulse Rate 118 H 120 H Respiratory 18 Rate Blood Pressure 142/76 142/76 146/71 Blood Pressure [Left] O2 Sat by Pulse 99 Oximetry 07/03/19 07/03/19 07/03/19 00:16 00:42 00:46 Temperature Pulse Rate 111 H 103 H 101 H Respiratory 14 15 Rate Blood Pressure 146/71 142/76 142/76 Blood Pressure [Left] O2 Sat by Pulse 97 97 97 Oximetry 07/03/19 01:00 Temperature Pulse Rate 100 H Respiratory 15 Rate Blood Pressure 118/66 Blood Pressure [Left] O2 Sat by Pulse 97 Oximetry - Reevaluation(s) Reevaluation #1: 07/03/19 00:00 Differential diagnosis, including but not limited to: Perinephric abscess, pyelonephritis, pneumonia, pulmonary embolism, thyroid storm, thyrotoxicosis Assessment and plan: 48-year-old female with complex past medical history, admitted to this hospital a few weeks ago for pneumonia and pyelonephritis, now presenting with probable recurrent sepsis secondary to pyelonephritis. However, perinephric abscess, pneumonia, and pulmonary embolism need to be excluded. Patient is tachycardic, uncertain if this is secondary to thyroid disease, sepsis, pulmonary embolism, or all of the above. She is not tachypneic and she is not hypoxic. X-ray of the chest unremarkable, however, faint rhonchi appr eciated in the left lower lung field. D-dimer sent to risk stratify patient for pulmonary embolism. Prior culture results are reviewed and appreciated. Ceftriaxone ordered. Given her symptoms, and vital signs, patient at moderate to high risk for thyroid storm versus thyrotoxicosis. Therefore, we will treat her empirically for a thyroid storm. Patient will likely require admission to the medical service. Discussed this plan of care with patient and family who verbalized understanding. Reevaluation #2: 07/03/19 01:31 CT scan confirms left-sided pyelonephritis, no abscess, and cystitis. Hospital physician, Dr. Childers accepts patient to the medical service. Patient appears improved on repeat examination and evaluation ED Medical Decision Making - Lab Data Result diagrams: 07/02/19 21:12 07/02/19 21:12 Vital Signs 07/02/19 20:58 Temperature 99.8 F H Pulse Rate 112 H Respiratory 18 Rate Blood Pressure 159/79 O2 Sat by Pulse 100 Oximetry Lab Results 02/24/20 02/24/20 02/24/20 Range/Units 21:12 21:12 Unknown WBC 13.2 H (4.5-11.0) K/mm3 RBC 4.63 (3.65-5.03) M/mm3 Hgb 13.9 (10.1-14.3) gm/dl Hct 40.0 (30.3-42.9) % MCV 87 (79-97) fl MCH 30 (28-32) pg MCHC 35 H (30-34) % RDW 14.5 (13.2-15.2) % Plt Count 304 (140-440) K/mm3 Lymph % (Auto) 15.2 (13.4-35.0) % Lewis % (Auto) 5.8 (0.0-7.3) % Eos % (Auto) 3.5 (0.0-4.3) % Baso % (Auto) 0.6 (0.0-1.8) % Lymph # 2.0 (1.2-5.4) K/mm3 Lewis # 0.8 (0.0-0.8) K/mm3 Eos # 0.5 H (0.0-0.4) K/mm3 Baso # 0.1 (0.0-0.1) K/mm3 Seg Neutrophils % 74.9 H (40.0-70.0) % Seg Neutrophils # 9.9 H (1.8-7.7) K/mm3 Sodium 137 (137-145) mmol/L Potassium 4.0 (3.6-5.0) mmol/L Chloride 98.7 (98-107) mmol/L Carbon Dioxide 22 (22-30) mmol/L Anion Gap 20 mmol/L BUN 8 (7-17) mg/dL Creatinine 0.5 L (0.7-1.2) mg/dL Estimated GFR > 60 ml/min BUN/Creatinine Ratio 16 % Glucose 359 H (65-100) mg/dL Calcium 9.4 (8.4-10.2) mg/dL Total Bilirubin 0.40 (0.1-1.2) mg/dL AST 15 (5-40) units/L ALT 26 (7-56) units/L Alkaline Phosphatase 148 H (35-129) units/L Total Protein 7.8 (6.3-8.2) g/dL Albumin 4.3 (3.9-5) g/dL Albumin/Globulin Ratio 1.2 % Lipase 18 (13-60) units/L Urine Color Straw (Yellow) Urine Turbidity Clear (Clear) Urine pH 6.0 (5.0-7.0) Ur Specific [place] 1.031 H (1.003-1.030) Urine Protein <15 mg/dl (Negative) mg/dL Urine Glucose (UA) >=500 (Negative) mg/dL Urine Ketones Neg (Negative) mg/dL Urine Blood Mod (Negative) Urine Nitrite Neg (Negative) Ur Reducing Substances Not Reportable Urine Bilirubin Neg (Negative) Urine Ictotest Not Reportable Urine Urobilinogen < 2.0 (<2.0) mg/dL Ur Leukocyte Esterase Tr (Negative) Urine WBC (Auto) 11.0 H (0.0-6.0) /HPF Urine RBC (Auto) 5.0 (0.0-6.0) /HPF U Epithel Cells (Auto) < 1.0 (0-13.0) /HPF Urine Mucus Few /HPF Urine HCG, Qual Negative (Negative) - EKG Data -: EKG Interpreted by Pa EKG shows normal: sinus rhythm Rate: tachycardia - EKG Data 07/03/19 00:00 The EKG today shows a sinus rhythm, tachycardia, 107 bpm, there is a normal axis, the QTC is within normal limits, the QT is within normal limits, there is minimal motion artifact. The EKG is not consistent with STEMI. No obvious ischemic findings are noted. - Radiology Data Radiology results: report reviewed, image reviewed Print Report Referring Physician: ANTELMO GAITAN Patient Name: JOSÉ LUIS DE LA PAZ Date of : 1970 Sex: Female Report Date: 2019-07-02 Report Status: Finalized Findings [facility] [address] [place] [address] XRay Report Signed Patient: JOSÉ LUIS DE LA PAZ MR#: [id number] : 1970 Acct:[id number] Age/Sex: 48 / F ADM Date: 07/02/19 Loc: ED Attending Dr: Ordering Physician: ADDIE DHILLON Date of Service: 07/02/19 Procedure(s): XR chest routine 2V Accession Number(s): [id number] cc: ADDIE DHILLON Fluoro Time In Minutes: CHEST PA AND LATERAL VIEWS INDICATION: cough, recent PNA. COMPARISON: 05/25/2019 FINDINGS: Support devices: None. Heart: Within normal l imits. Lungs/Pleura: There is mild peribronchial cuffing. No consolidation or effusion. IMPRESSION: 1. Lower airways disease. Signer Name: Omar Pascual MD Signed: 07/02/2019 10:53 PM Workstation Name: [id number] Transcribed By: EDWIGE Dictated By: Omar Pascual MD Electronically Authenticated By: Omar Pascual MD Signed Date/Time: 07/02/192252 DD/ 51 Critical Care Time: Yes Critical care time in (mins) excluding proc time.: 60 Critical care attestation.: If time is entered above; I have spent that time in minutes in the direct care of this critically ill patient, excluding procedure time. ED Disposition Clinical Impression: Thyrotoxic crisis Qualifiers: Thyrotoxicosis type: unspecified thyrotoxicosis type Qualified Code(s): E05.91 - Thyrotoxicosis, unspecified with thyrotoxic crisis or storm Sepsis Qualifiers: Sepsis type: sepsis due to unspecified organism Sepsis acute organ dysfunction status: unspecified Qualified Code(s): A41.9 - Sepsis, unspecified organism Disposition: -09 OP ADMIT IP TO THIS HOSP Is pt being admited?: Yes Condition: Serious Instructions: Abdominal Pain (ED) Referrals: PRIMARY CARE, [Primary Care Provider] - 3-5 Days
[2019-07-02] MEDS ORDERED: methIMAzole 5 MG TAB PO ONE (23:23)
[2019-07-02] MEDS ORDERED: POTASSIUM IODIDE/IODINE (LUGOLS) 5% ORAL LIQD 5 ML PO ONE (23:23)
[2019-07-02] MEDS ORDERED: dexAMETHasone 20 MG/5 ML VIAL IV ONE (23:23)
[2019-07-02] MEDS ORDERED: cefTRIAXone/NS 2 GM/100 ML 2 GM/100 ML BAG IV ONE (23:26)
[2019-07-03 00:07] LABS: INR 1.05 (0.87-1.13); Partial Thromboplastin Time 26.5 Sec. (24.2-36.6)
[2019-07-03] MEDS ORDERED: INSULIN REGULAR, HUMAN 100 UNITS/1 ML IV ONE (00:22)
[2019-07-03] MEDS ORDERED: ACETAMINOPHEN 325 MG TAB PO PRN (01:32)
[2019-07-03] MEDS ORDERED: ONDANSETRON 4 MG/2 ML INJ IV PRN (01:32)
[2019-07-03] MEDS ORDERED: SODIUM CHLORIDE 0.9% 1000 ML 1,000 ML ONE (01:40)
[2019-07-03] MEDS: SODIUM CHLORIDE 0.9% 1000 ML 1,000 ML IV SCH ×4 (01:42→22:34)
[2019-07-03] MEDS ORDERED: DEXTROSE 50% IN WATER (25GM) 50 ML SYRINGE IV PRN (01:58)
[2019-07-03] MEDS ORDERED: PROPRANOLOL HCL 20 MG PO SCH (02:00)
--- NOTE | 2019-07-03 02:03 | History and Physical Report ---
History of Present Illness History of present illness: 48-year-old woman with a history of hypertension, diabetes, cirrhosis, hyperthyroidism comes emergency room with complaints of flank pain that started 3 days ago. She describes the pain as if someone stepping on her flank, constant, intensity 7/10, radiating to the left lower abdomen, better with pain medication given in the emergency room. Admits to fever chills, urinary frequency, no dysuria. Patient was given IV Rocephin in the emergency room. She her TSH was low and she was thought to have thyrotoxicosis and was given methimazole 10 mg and dexamethasone and propanolol. Review of the records show that the patient was admitted in May and was diagnosed with hyperthyroidism and was started on methimazole and propanolol Review Of Systems: Constitutional: no weight loss, fever, chills Ears, eyes, nose, mouth and throat: no nasal congestion, no nasal discharge, no sinus pressure, blurry vision, diplopia Neck: No neck pain or rigidity. Cardiovascular: No palpitations, chest pain Respiratory: No shortness of breath, cough Gastrointestinal: No hematochezia Genitourinary : no dysuria, +frequency Musculoskeletal: no muscle ache , joint pain Integumentary: no rash, no pruritis Neurological: no parathesias, focal weakness Endocrine: no cold or heat intolerance, no polyuria or polydipsia Hematologic/Lymphatic: no easy bruising, no easy bleeding, no gland swelling Allergic/Immunologic: no urticaria, no angioedema. PAST MEDICAL HISTORY: Hypertension, diabetes, cirrhosis, hypothyroidism PAST SURGICAL HISTORY: Cholecystectomy, tubal ligation SOCIAL HISTORY: Denies alcohol, tobacco, drugs FAMILY HISTORY: Hypertension Medications and Allergies Allergies Allergy/AdvReac Type Severity Reaction Status Date / Time fentanyl Allergy Nausea Verified 07/08/17 01:06 tramadol Allergy Hives Verified 07/08/17 01:06 Home Medications Medication Instructions Recorded Confirmed Last Taken Type Cefdinir 300 mg PO BID #22 capsule 05/29/19 07/03/19 Unknown Rx Insulin NPH/Regular [Novolin 70/30] 13 unit SQ BIDDIAB #1 vial 05/29/19 07/03/19 Unknown Rx Potassium Chloride [K-Dur] 20 meq PO QDAY #7 tablet 05/29/19 07/03/19 Unknown Rx Propranolol HCl 20 mg PO Q8H #90 tablet 05/29/19 07/03/19 Unknown Rx lisinopriL [Zestril TAB] 10 mg PO QDAY #90 tablet 05/29/19 07/03/19 Unknown Rx metFORMIN XR [Glucophage XR] 500 mg PO QDDIAB #90 tablet 05/29/19 07/03/19 Unknown Rx methIMAzole [Tapazole] 5 mg PO Q8HR #90 tablet 05/29/19 07/03/19 Unknown Rx Active Meds: Active Medications Acetaminophen (Tylenol) 650 mg PO Q4H PRN PRN Reason: Pain MILD(1-3)/Fever >100.5/MANZANO Dextrose (D50w (25gm) Syringe) 50 ml IV Q30MIN PRN; Protocol PRN Reason: Hypoglycemia Enoxaparin Sodium (Enoxaparin) 40 mg SUB-Q QDAY HOMERO Sodium Chloride (Nacl 0.9% 1000 Ml) 1,000 mls @ 150 mls/hr IV DIRECT HOMERO Last Admin: 07/03/19 01:42 Dose: 150 mls/hr Documented by: Ceftriaxone Sodium (Rocephin/Ns 1 Gm/50 Ml) 1 gm in 50 mls @ 100 mls/hr IV Q24HR HOMERO; Protocol Insulin Human Isoph/Insulin Regular (Humulin 70/30) 13 unit SUB-Q BIDDIAB HOMERO Insulin Human Lispro (Humalog) 0 unit SUB-Q ACHS HOMERO; Protocol Methimazole (Tapazole) 5 mg PO Q8HR HOMERO Miscellaneous Medication (Propranolol Hcl [Propranolol Hcl]) 20 mg PO Q8H HOMERO Ondansetron HCl (Zofran) 4 mg IV Q4H PRN PRN Reason: Nausea And Vomiting Sodium Chloride (Sodium Chloride Flush Syringe 10 Ml) 10 ml IV BID HOMERO Sodium Chloride (Sodium Chloride Flush Syringe 10 Ml) 10 ml IV PRN PRN PRN Reason: LINE FLUSH Exam - Physical Exam Narrative exam: Gen. appearance: Patient lying in bed, no apparent distress HEENT: Normocephalic, atraumatic, pupils equally round and reactive to light, extraocular movement intact, and no sclericterus,. No JVD or thyromegaly or nodule,neck supple, no carotid bruit ,mucous membranes moist, no exudate or e rythema Heart: S1, S2, regular rate and rhythm Lungs: Crackles bilaterally, breathing comfortable Abdomen: Positive bowel sounds, nontender, nondistended, no organomegaly Extremity: Left CVA tenderness, no edema, cyanosis, clubbing Skin: No rash, nodules, warm, dry Neuro: speech is fluent, moves extremities, sensory intact - Constitutional Vitals: Temp Pulse Resp BP Pulse Ox 100.5 F H 100 H 15 118/66 97 07/02/19 23:00 07/03/19 01:00 07/03/19 01:00 07/03/19 01:00 07/03/19 01:00 Results - Labs CBC & Chem 7: 07/02/19 21:12 07/02/19 21:12 Labs: Abnormal lab results 07/02/19 07/02/19 07/02/19 Range/Units 21:12 21:12 23:25 WBC 13.2 H (4.5-11.0) K/mm3 MCHC 35 H (30-34) % Eos # 0.5 H (0.0-0.4) K/mm3 Seg Neutrophils % 74.9 H (40.0-70.0) % Seg Neutrophils # 9.9 H (1.8-7.7) K/mm3 Creatinine 0.5 L (0.7-1.2) mg/dL Glucose 359 H (65-100) mg/dL POC Glucose (70-105) Lactic Acid 2.70 H* (0.7-2.0) mmol/L Alkaline Phosphatase 148 H (35-129) units/L TSH (0.270-4.200) mlU/mL Ur Specific [place] (1.003-1.030) Urine WBC (Auto) (0.0-6.0) /HPF 07/02/19 07/02/19 07/03/19 Range/Units 23:25 Unknown 01:00 WBC (4.5-11.0) K/mm3 MCHC (30-34) % Eos # (0.0-0.4) K/mm3 Seg Neutrophils % (40.0-70.0) % Seg Neutrophils # (1.8-7.7) K/mm3 Creatinine (0.7-1.2) mg/dL Glucose (65-100) mg/dL POC Glucose 196 H (70-105) Lactic Acid (0.7-2.0) mmol/L Alkaline Phosphatase (35-129) units/L TSH < 0.005 L (0.270-4.200) mlU/mL Ur Specific [place] 1.031 H (1.003-1.030) Urine WBC (Auto) 11.0 H (0.0-6.0) /HPF - Imaging and Cardiology CT scan - abdomen: report reviewed CT scan - pelvis: report reviewed Assessment and Plan Assessment Acute pyelonephritis Start IV fluid, IV Rocephin, follow cultures Hyperthyroidism continue with her methimazole, propranolol This is not a new diagnosis, the old records were reviewed Obtain ultrasound of the thyroid, wasnt done in May Diabetes Status post IV contrast, hold metformin Check fingersticks and start insulin sliding scale, continue insulin Hypertension Continue outpatient medications DVT prophylaxis
--- NOTE | 2019-07-03 02:45 | Cat Scan Report ---
CT ABDOMEN AND PELVIS WITH IV CONTRAST INDICATION: left flank pain lower abd pain sepsis thyroid stor. COMPARISON: 07/08/2017 CT TECHNIQUE: All CT scans at this facility use dose modulation, automated exposure control, iterative reconstructi on or weight based dosing, when appropriate, to reduce radiation dose to as low as reasonably achieva ble. FINDINGS: Lung Bases: No significant abnormality. Skeletal System: No acute abnormality. ABDOMEN: Liver: No significant abnormality. Gallbladder: Removed. Bile Ducts: No significant abnormality. Pancreas: No significant abnormality. Spleen: No significant abnormality. Adrenals: No significant abnormality. Right Kidney: No significant abnormality. Left Kidney: Patchy hypodensities are seen in the upper pole cortex of the left kidney. Upper GI tract: No significant abnormality. Lymph Nodes: No significant adenopathy. Aorta: No significant abnormality. Additional Findings: No significant abnormality. PELVIS: Colon: No acute abnormality. Diverticulosis is noted. Urinary Bladder and Distal Ureters: Cystitis. Appendix: No significant abnormality. Lymph Nodes: No significant adenopathy. Additional Findings: Multiple uterine lesions are noted, these are likely fibroids. IMPRESSION: 1. Cystitis and upper pole left pyelonephritis. 2. Incidental findings, as above. Signer Name: Omar Pascual MD Signed: 07/03/2019 1:05 AM Workstation Name: [id number]
--- NOTE | 2019-07-03 03:14 | Ultrasound Report ---
ULTRASOUND THYROID INDICATION / CLINICAL INFORMATION: hyperthyroidism. COMPARISON: None available. FINDINGS: RIGHT LOBE: Size = 5.6 x 2.2 x 1.9 cm. - Echogenicity: Normal. - Vascularity: Normal. - Nodules < 1 cm: There is a subcentimeter hypoechoic nodule in the mid right lobe. - Nodules >= 1 cm or Suspicious Nodules: None. LEFT LOBE: Size = 4.6 x 1.8 x 1.5 cm. - Echogenicity: Normal. - Vascularity: Normal. - Nodules < 1 cm: There are 2 subcentimeter isoechoic nodules in the left lobe. - Nodules >= 1 cm or Suspicious Nodules: None. ISTHMUS: No significant abnormality. Thickness = 0.7 cm. - Nodules < 1 cm: None. - Nodules >= 1 cm or Suspicious Nodules: None. LYMPH NODES: No abnormal lymph nodes. PARATHYROID GLANDS: No abnormal parathyroid gland. ADDITIONAL FINDINGS: None. IMPRESSION: 1. No significant abnormality. Subcentimeter bilateral nodules are noted. No suspicious features. Note: Nodule size based on mean (average) size of 3 dimensions. Note: Nodules < 1 cm do not typically require follow-up or FNA unless there are suspicious features ( [facility], 2015) ACR TI-RADS Thyroid Nodule Recommendations TI-RADS 1 (0 points) -- Benign. No FNA or follow-up. TI-RADS 2 (1-2 points) -- Not suspicious. No FNA or follow-up. TI-RADS 3 (3 points) -- Mildly suspicious. Follow up in 1 year if 1.5 cm. FNA if 2.5 cm. TI-RADS 4 (4-6 points) -- Moderately suspicious. Follow up in 1 year if 1.0 cm. FNA if 1.5 cm. TI-RADS 5 (7+ points) -- Highly suspicious. Follow up in 1 year if 0.5 cm. FNA if 1.0 cm. Signer Name: Omar Pascual MD Signed: 07/03/2019 3:10 AM Workstation Name: [id number]
[2019-07-03] MEDS: PROPRANOLOL 10 MG TAB PO SCH ×3 (06:59→22:32)
[2019-07-03] MEDS: methIMAzole 5 MG TAB PO SCH ×3 (07:01→22:33)
[2019-07-03 07:31] LABS: Hematocrit 37.4 % (30.3-42.9); Hemoglobin 12.8 gm/dl (10.1-14.3); Mean Corpuscular HGB Conc 34 % (30-34); Mean Corpuscular Volume 88 fl (79-97); Platelet Count 252 K/mm3 (140-440); Red Blood Count 4.26 M/mm3 (3.65-5.03); Red Cell Distribution Width 14.7 % (13.2-15.2)
[2019-07-03 07:45] LABS: BUN/Creatinine Ratio 18; Blood Urea Nitrogen 11 mg/dL (7-17); Calcium 8.6 mg/dL (8.4-10.2); Hemolysis Index 1
[2019-07-03] MEDS: INSULIN LISPRO 100 UNIT/ML SUB-Q SCH ×4 (07:59→22:32)
[2019-07-03] MEDS ORDERED: INSULIN NPH/REGULAR 70/30 INJ SUB-Q SCH (08:00)
[2019-07-03] MEDS ORDERED: metFORMIN XR 500MG TAB PO SCH (08:00)
[2019-07-03] MEDS: cefTRIAXone/NS 1 GM/50 ML 1 GM/50 ML BAG IV SCH (09:03)
[2019-07-03] MEDS: ENOXAPARIN 40 MG/0.4 ML INJ SUB-Q SCH (09:04)
[2019-07-03] MEDS ORDERED: methIMAzole 5 MG TAB PO SCH (10:00)
[2019-07-03] MEDS ORDERED: LISINOPRIL 10 MG TAB PO SCH (10:00)
[2019-07-03 11:04] LABS: Band Neutrophils # (Manual) 0.6 K/mm3; Basophils % (Manual) 0 % (0.0-1.8); Eosinophils % (Manual) 0 % (0.0-4.3); Total Cells Counted 100
[2019-07-03 11:09] LABS: Platelet Estimate Consistent w Auto
[2019-07-03] MEDS ORDERED: FLU VACC QUAD 2019-20 (3 YR UP)/PF 60 MCG/0.5 ML SYRINGE IM ONE (12:00)
--- NOTE | 2019-07-03 16:37 | Progress Note ---
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 History Interval history: Patient seen and examined this morning at the bedside medical records reviewed Patient's blood sugars are well controlled this morning more than 500 Insulin given per protocols Patient complains of generalized weakness Denies nausea or vomiting No abdominal pain Vital signs noted Hospitalist Physical - Constitutional Vitals: Temp Pulse Resp BP Pulse Ox 97.9 F 76 18 116/63 99 07/03/19 11:57 07/03/19 11:57 07/03/19 11:57 07/03/19 13:11 07/03/19 11:57 General appearance: Present: mild distress, well-nourished - EENT Eyes: Present: PERRL, EOM intact - Neck Neck: Present: supple, normal ROM - Respiratory Respiratory effort: normal Respiratory: bilateral: diminished, negative: rales, rhonchi, wheezing - Cardiovascular Rhythm: regular Heart Sounds: Present: S1 & S2 - Extremities Extremities: no ischemia, No edema - Abdominal General gastrointestinal: soft, non-tender, non-distended, normal bowel sounds - Integumentary Integumentary: Present: clear, warm - Psychiatric Psychiatric: appropriate mood/affect - Neurologic Neurologic: moves all extremities BRANT score - Brant Score Age > 65: (0) No Aspirin use within the Past 7 Days: (0) No 3 or more CAD Risk Factors: (0) No 2 or more Angina events in past 24 hrs: (0) No Known CAD with more than 50% Stenosis: (0) No Elevated Cardiac Markers: (0) No ST Deviation Greater than 0.5mm: (0) No BRANT Score: 0 Results - Labs CBC & Chem 7: 07/03/19 06:38 07/03/19 07:59 Labs: Laboratory Last Values WBC 12.6 K/mm3 (4.5-11.0) H 07/03/19 06:38 RBC 4.26 M/mm3 (3.65-5.03) 07/03/19 06:38 Hgb 12.8 gm/dl (10.1-14.3) 07/03/19 06:38 Hct 37.4 % (30.3-42.9) 07/03/19 06:38 MCV 88 fl (79-97) 07/03/19 06:38 MCH 30 pg (28-32) 07/03/19 06:38 MCHC 34 % (30-34) 07/03/19 06:38 RDW 14.7 % (13.2-15.2) 07/03/19 06:38 Plt Count 252 K/mm3 (140-440) 07/03/19 06:38 Lymph % (Auto) 15.2 % (13.4-35.0) 07/02/19 21:12 [place] % (Auto) 5.8 % (0.0-7.3) 07/02/19 21:12 Eos % (Auto) 3.5 % (0.0-4.3) 07/02/19 21:12 Baso % (Auto) 0.6 % (0.0-1.8) 07/02/19 21:12 Lymph # 2.0 K/mm3 (1.2-5.4) 07/02/19 21:12 [place] # 0.8 K/mm3 (0.0-0.8) 07/02/19 21:12 Eos # 0.5 K/mm3 (0.0-0.4) H 07/02/19 21:12 Baso # 0.1 K/mm3 (0.0-0.1) 07/02/19 21:12 Add Manual Diff Complete 07/03/19 06:38 Total Counted 100 07/03/19 06:38 Seg Neutrophils % Director Of Online Education 07/03/19 06:38 Seg Neuts % (Manual) 92.0 % (40.0-70.0) H 07/03/19 06:38 Band Neutrophils % 5.0 % 07/03/19 06:38 Lymphocytes % (Manual) 2.0 % (13.4-35.0) L 07/03/19 06:38 Reactive Lymphs % (Man) 0 % 07/03/19 06:38 Monocytes % (Manual) 1.0 % (0.0-7.3) 07/03/19 06:38 Eosinophils % (Manual) 0 % (0.0-4.3) 07/03/19 06:38 Basophils % (Manual) 0 % (0.0-1.8) 07/03/19 06:38 Metamyelocytes % 0 % 07/03/19 06:38 Myelocytes % 0 % 07/03/19 06:38 Promyelocytes % 0 % 07/03/19 06:38 Blast Cells % 0 % 07/03/19 06:38 Nucleated RBC % Not Reportable 07/03/19 06:38 Seg Neutrophils # 9.9 K/mm3 (1.8-7.7) H 07/02/19 21:12 Seg Neutrophils # Man 11.6 K/mm3 (1.8-7.7) H 07/03/19 06:38 Band Neutrophils # 0.6 K/mm3 07/03/19 06:38 Lymphocytes # (Manual) 0.3 K/mm3 (1.2-5.4) L 07/03/19 06:38 Abs React Lymphs (Man) 0.0 K/mm3 07/03/19 06:38 Monocytes # (Manual) 0.1 K/mm3 (0.0-0.8) 07/03/19 06:38 Eosinophils # (Manual) 0.0 K/mm3 (0.0-0.4) 07/03/19 06:38 Basophils # (Manual) 0.0 K/mm3 (0.0-0.1) 07/03/19 06:38 Metamyelocytes # 0.0 K/mm3 07/03/19 06:38 Myelocytes # 0.0 K/mm3 07/03/19 06:38 Promyelocytes # 0.0 K/mm3 07/03/19 06:38 Blast Cells # 0.0 K/mm3 07/03/19 06:38 WBC Morphology Not Reportable 07/03/19 06:38 Hypersegmented Neuts Not Reportable 07/03/19 06:38 Hyposegmented Neuts Not Reportable 07/03/19 06:38 Hypogranular Neuts Not Reportable 07/03/19 06:38 Smudge Cells Not Reportable 07/03/19 06:38 Toxic Granulation Not Reportable 07/03/19 06:38 Toxic Vacuolation Not Reportable 07/03/19 06:38 Dohle Bodies Not Reportable 07/03/19 06:38 Pelger-Huet Anomaly Not Reportable 07/03/19 06:38 Byron Rods Not Reportable 07/03/19 06:38 Platelet Estimate Consistent w auto 07/03/19 06:38 Clumped Platelets Not Reportable 07/03/19 06:38 Plt Clumps, EDTA Not Reportable 07/03/19 06:38 Large Platelets Not Reportable 07/03/19 06:38 Giant Platelets Not Reportable 07/03/19 06:38 Platelet Satelliting Not Reportable 07/03/19 06:38 Plt Morphology Comment Not Reportable 07/03/19 06:38 RBC Morphology Not Reportable 07/03/19 06:38 Dimorphic RBCs Not Reportable 07/03/19 06:38 Polychromasia Few 07/03/19 06:38 Hypochromasia Not Reportable 07/03/19 06:38 Poikilocytosis Not Reportable 07/03/19 06:38 Anisocytosis Not Reportable 07/03/19 06:38 Microcytosis Not Reportable 07/03/19 06:38 Macrocytosis Not Reportable 07/03/19 06:38 Spherocytes Not Reportable 07/03/19 06:38 Pappenheimer Bodies Not Reportable 07/03/19 06:38 Sickle Cells Not Reportable 07/03/19 06:38 Target Cells Not Reportable 07/03/19 06:38 Tear Drop Cells Not Reportable 07/03/19 06:38 Ovalocytes Not Reportable 07/03/19 06:38 Helmet Cells Not Reportable 07/03/19 06:38 Haywood-Mcdermitt Bodies Not Reportable 07/03/19 06:38 Miller Rings Not Reportable 07/03/19 06:38 [place] Cells Not Reportable 07/03/19 06:38 Bite Cells Not Reportable 07/03/19 06:38 Crenated Cell Not Reportable 07/03/19 06:38 Elliptocytes Not Reportable 07/03/19 06:38 Acanthocytes (Spur) Not Reportable 07/03/19 06:38 Rouleaux Not Reportable 07/03/19 06:38 Hemoglobin C Crystals Not Reportable 07/03/19 06:38 Schistocytes Not Reportable 07/03/19 06:38 Malaria parasites Not Reportable 07/03/19 06:38 Maximus Bodies Not Reportable 07/03/19 06:38 Hem Pathologist Commnt No 07/03/19 06:38 PT 13.8 Sec. (12.2-14.9) 07/02/19 23:25 INR 1.05 (0.87-1.13) 07/02/19 23:25 APTT 26.5 Sec. (24.2-36.6) 07/02/19 23:25 D-Dimer 141.32 ng/mlDDU (0-234) 07/02/19 23:25 Sodium 139 mmol/L (137-145) 07/03/19 06:38 Potassium 4.4 mmol/L (3.6-5.0) 07/03/19 06:38 Chloride 102.2 mmol/L (98-107) 07/03/19 06:38 Carbon Dioxide 19 mmol/L (22-30) L 07/03/19 06:38 Anion Gap 22 mmol/L 07/03/19 06:38 BUN 11 mg/dL (7-17) 07/03/19 06:38 Creatinine 0.6 mg/dL (0.7-1.2) L 07/03/19 06:38 Estimated GFR > 60 ml/min 07/03/19 06:38 BUN/Creatinine Ratio 18 % 07/03/19 06:38 Glucose 659 mg/dL (65-100) H* 07/03/19 07:59 POC Glucose 434 (70-105) H 07/03/19 11:28 Lactic Acid 1.30 mmol/L (0.7-2.0) 07/03/19 01:15 Calcium 8.6 mg/dL (8.4-10.2) 07/03/19 06:38 Magnesium 2.20 mg/dL (1.7-2.3) 07/02/19 23:25 Total Bilirubin 0.40 mg/dL (0.1-1.2) 07/02/19 21:12 AST 15 units/L (5-40) 07/02/19 21:12 ALT 26 units/L (7-56) 07/02/19 21:12 Alkaline Phosphatase 148 units/L (35-129) H 07/02/19 21:12 Total Creatine Kinase 34 units/L (30-135) 07/02/19 23:25 Total Protein 7.8 g/dL (6.3-8.2) 07/02/19 21:12 Albumin 4.3 g/dL (3.9-5) 07/02/19 21:12 Albumin/Globulin Ratio 1.2 % 07/02/19 21:12 Lipase 18 units/L (13-60) 07/02/19 21:12 TSH < 0.005 mlU/mL (0.270-4.200) L 07/02/19 23:25 Free T4 1.05 ng/dL (0.76-1.46) 07/02/19 23:25 Urine Color Straw (Yellow) 07/02/19 Unknown Urine Turbidity Clear (Clear) 07/02/19 Unknown Urine pH 6.0 (5.0-7.0) 07/02/19 Unknown Ur Specific [place] 1.031 (1.003-1.030) H 07/02/19 Unknown Urine Protein <15 mg/dl mg/dL (Negative) 07/02/19 Unknown Urine Glucose (UA) >=500 mg/dL (Negative) 07/02/19 Unknown Urine Ketones Neg mg/dL (Negative) 07/02/19 Unknown Urine Blood Mod (Negative) 07/02/19 Unknown Urine Nitrite Neg (Negative) 07/02/19 Unknown Ur Reducing Substances Not Reportable 07/02/19 Unknown Urine Bilirubin Neg (Negative) 07/02/19 Unknown Urine Ictotest Not Reportable 07/02/19 Unknown Urine Urobilinogen < 2.0 mg/dL (<2.0) 07/02/19 Unknown Ur Leukocyte Esterase Tr (Negative) 07/02/19 Unknown Urine WBC (Auto) 11.0 /HPF (0.0-6.0) H 07/02/19 Unknown Urine RBC (Auto) 5.0 /HPF (0.0-6.0) 07/02/19 Unknown U Epithel Cells (Auto) < 1.0 /HPF (0-13.0) 07/02/19 Unknown Urine Mucus Few /HPF 07/02/19 Unknown Urine HCG, Qual Negative (Negative) 07/02/19 Unknown Active Medications - Current Medications Current Medications: Generic Name Dose Route Start Last Admin Trade Name Freq PRN Reason Stop Dose Admin Acetaminophen 650 mg 07/03/19 01:32 07/03/19 09:04 Tylenol PO 650 mg Q4H PRN Administration Pain MILD(1-3)/Fever >100.5/MANZANO Dextrose 0 ml 07/03/19 01:58 D50w (25gm) Syringe IV Q30MIN PRN Hypoglycemia Protocol Enoxaparin Sodium 40 mg 07/03/19 10:00 07/03/19 09:04 Enoxaparin SUB-Q 40 mg QDAY HOMERO Administration Sodium Chloride 1,000 mls @ 150 mls/hr 07/03/19 01:45 07/03/19 16:06 Nacl 0.9% 1000 Ml IV 150 mls/hr DIRECT HOMERO Administration Ceftriaxone Sodium 1 gm in 50 mls @ 100 mls/hr 07/03/19 10:00 07/03/19 09:03 Rocephin/Ns 1 Gm/50 Ml IV 100 mls/hr Q24HR HOMERO Administration Protocol Insulin Human Isoph/Insulin Regular 18 unit 07/03/19 16:35 Humulin 70/30 SUB-Q BIDDIAB HOMERO Insulin Human Lispro 0 unit 07/03/19 07:30 07/03/19 12:35 Humalog SUB-Q 10 unit ACHS HOMERO Administration Protocol Methimazole 5 mg 07/03/19 06:00 07/03/19 13:13 Tapazole PO 5 mg Q8HR HOMERO Administration Ondansetron HCl 4 mg 07/03/19 01:32 Zofran IV Q4H PRN Nausea And Vomiting Oxycodone/Acetaminophen 1 tab 07/03/19 16:30 Percocet 5/325 PO Q6H PRN Pain, Moderate (4-6) Pneumococcal Polyvalent Vaccine 0.5 ml 07/04/19 12:00 Pneumovax 23 IM 07/04/19 12:01 .ONCE ONE Propranolol HCl 20 mg 07/03/19 06:00 07/03/19 13:11 Inderal PO 20 mg Q8HR HOMERO Administration Sodium Chloride 10 ml 07/03/19 10:00 07/03/19 09:05 Sodium Chloride Flush Syringe 10 Ml IV 10 ml BID HOMERO Administration Sodium Chloride 10 ml 07/03/19 01:32 Sodium Chloride Flush Syringe 10 Ml IV PRN PRN LINE FLUSH Nutrition/Malnutrition Assess - Dietary Evaluation Nutrition/Malnutrition Findings: Nutrition Notes Start: 07/03/19 13:05 Freq: Status: Active Protocol: Document 07/03/19 13:05 LM (Rec: 07/03/19 13:21 LM [id number]) Nutrition Notes Need for Assessment generated from: flat hammerer,MST,Education Initial or Follow up Assessment Current Diagnosis Diabetes,Hypertension Other Pertinent Diagnosis hyperthyroid, cirrhosis, pyelonephritis Current Diet Cardiac Labs/Tests BG 658 Pertinent Medications NaCl at 150 ml/hr Humulin Humalog Height 5 ft 3 in Weight 61.1 kg [place] Body Weight (kg) 52.27 BMI 23.8 Intake Prior to Admission Poor Weight change and time frame 25-33% wt loss in 4 months Weight Status Appropriate Subjective/Other Information RN screen for MST. Pt stated she ate 100% of her breakfast this AM but was not eating well at home due to fever and previous admission. Pt stated her UBW is between 180-200 lb. Pt stated she has lost weight since March. Pt stated she still feels a little nausea. Provided DM diet education for pt. Burn Absent Trauma Absent GI Symptoms Nausea Current % PO Good (75-100%) Minimum of two criteria Yes Energy Intake (non-severe) <75% Estimated Energy Requirement >7 days Interpretation of Weight Loss (severe) >7.5% in 3 months #2 Nutrition Diagnosis Food and nutrition-related knowledge deficit Etiology Pt with limited DM diet education As Evidenced by Signs and Symptoms pt wanting DM diet education, BG 659 #1 Nutrition Diagnosis Malnutrition Etiology pain secondary to pyelonephritis As Evidenced by Signs and Symptoms 25-33% wt loss, <75% EER >7 days Is patient on ventilator? No Is Patient Ambulatory and/or Out of Bed Yes REE-([place] Je[place]-ambulatory/OOB) [ [id number] [id number]] Calculation Used for Recommendations [place] Jeor Additional Notes Protein: 73-92g (1.2-1.5g/kg) Fluid: 1 ml/kcal Nutrition Intervention Change Diet Order: Cardiac/consistent CHO Teaching Recipient Patient Learning Readiness Good Teaching Methods Discussion,Handout Response to Teaching Verbalize understanding Education Handouts Provided Carbohydrate Counting for People with DM Barriers to Learning No Barriers RD phone number provided Yes Patient aware of follow up options Yes Goal #1 Meet at least 75% of energy and protein needs Anticipated Discharge Needs: cardiac/consisntent CHO Follow-Up By: 07/06/19 Additional Comments F/U for stable intakes
[2019-07-03] MEDS: oxyCODONE /ACETAMINOPHEN 5-325MG TAB PO PRN (17:56)
[2019-07-03] MEDS: INSULIN NPH/REGULAR 70/30 INJ SUB-Q SCH (19:43)
[2019-07-04] MEDS: oxyCODONE /ACETAMINOPHEN 5-325MG TAB PO PRN ×3 (00:38→16:15)
[2019-07-04] MEDS: SODIUM CHLORIDE 0.9% 1000 ML 1,000 ML IV SCH (04:54)
[2019-07-04] MEDS: PROPRANOLOL 10 MG TAB PO SCH ×2 (05:39→13:38)
[2019-07-04] MEDS: methIMAzole 5 MG TAB PO SCH ×2 (05:39→13:38)
[2019-07-04] MEDS: INSULIN NPH/REGULAR 70/30 INJ SUB-Q SCH (07:30)
[2019-07-04] MEDS: INSULIN LISPRO 100 UNIT/ML SUB-Q SCH ×2 (07:30→11:30)
[2019-07-04] MEDS: ENOXAPARIN 40 MG/0.4 ML INJ SUB-Q SCH (11:28)
[2019-07-04] MEDS: cefTRIAXone/NS 1 GM/50 ML 1 GM/50 ML BAG IV SCH (11:28)
[2019-07-04] MEDS ORDERED: PNEUMOCOCCAL 23 Valent 0.5 ML VIAL IM ONE (12:00)
[2019-07-04 12:57] VITALS: BP 123/60
--- NOTE | 2019-07-04 15:07 | Discharge Summary ---
Providers - Providers Date of Admission: 07/03/19 01:32 Date of discharge: 07/04/19 Attending physician: GISELA RUSHING Primary care physician: DIESEL ENGINE FITTER Hospitalization Condition: Serious Disposition: DC-01 TO HOME OR SELFCARE Time spent for discharge: 32 min Core Measure Documentation - Palliative Care Palliative Care/ Comfort Measures: Not Applicable - Core Measures Any of the following diagnoses?: none Exam - Constitutional Vitals: Temp Pulse Resp BP Pulse Ox 99.1 F 85 18 123/60 98 07/04/19 12:14 07/04/19 13:38 07/04/19 12:14 07/04/19 13:38 07/04/19 12:14 General appearance: Present: no acute distress, well-nourished - EENT Eyes: Present: PERRL, EOM intact - Neck Neck: Present: supple, normal ROM - Respiratory Respiratory effort: normal Respiratory: bilateral: diminished, negative: rales, rhonchi, wheezing - Cardiovascular Rhythm: regular Heart Sounds: Present: S1 & S2 - Extremities Extremities: no ischemia, No edema - Abdominal General gastrointestinal: Present: soft, non-tender, non-distended, normal bowel sounds - Integumentary Integumentary: Present: clear, warm - Musculoskeletal Musculoskeletal: strength equal bilaterally - Psychiatric Psychiatric: appropriate mood/affect, cooperative - Neurologic Neurologic: CNII-XII intact, moves all extremities Plan Activity: no restrictions Diet: diabetic Additional Instructions: Advised to comply with medications, diet, follow-up visits Follow up with: PRIMARY CARE, [Primary Care Provider] - 3-5 Days Prescriptions: cefUROXime [Ceftin] 2 tab PO Q12H 10 Days #40 tablet Insulin NPH/Regular [NovoLIN 70/30] 22 unit SUB-Q BIDDIAB #2 vial
[2019-07-04] MEDS ORDERED: INSULIN NPH/REGULAR 70/30 INJ SUB-Q SCH (17:00)
== END 2019-07-04 16:20 | disposition home or self-care (01) | DRG 871 ==
LOC: ED 20:29 → 3A 07-03 01:32
PROVIDERS: ADMIT Internal Medicine; ATTEND Internal Medicine
PROC: 3E0234Z Introduction of Serum, Toxoid and Vaccine into Muscle, Percutaneous Approach (ICD-10-PCS; principal; 2019-07-04)
DX: A41.9 Sepsis, unspecified organism (principal); E05.91 Thyrotoxicosis, unspecified with thyrotoxic crisis or storm; N10 Acute pyelonephritis; E11.9 Type 2 diabetes mellitus without complications; E11.65 Type 2 diabetes mellitus with hyperglycemia; E21.3 Hyperparathyroidism, unspecified; I10 Essential (primary) hypertension; K76.9 Liver disease, unspecified; Z90.49 Acquired absence of other specified parts of digestive tract; Z98.51 Tubal ligation status; Z88.6 Allergy status to analgesic agent; Z82.49 Family history of ischemic heart disease and other diseases of the circulatory system; Z23 Encounter for immunization; Z87.01 Personal history of pneumonia (recurrent); Z87.440 Personal history of urinary (tract) infections; Z79.4 Long term (current) use of insulin
CPT/HCPCS: 36415; 71046; 74177; 76536; 80048; 80053; 81001; 81025; 82140; 82550; 82947; 82962; 83690; 83735; 84439; 84443; 85007; 85025; 85379; 85610; 85730; 87040; 87076; 87086; 87116; 87186; 90686; 90732; 93005; 93010; G0378; J0696; J1100; J1650; J1815; J2270; J7030; Q9967

== ENCOUNTER 2020-06-07 06:58 | Observation (INO) | payer SELFPAY ==
--- NOTE | 2020-06-07 07:21 | Emergency Department Report ---
Chief Complaint: Fever Stated Complaint: FEVER,HEADACHE - HPI History of Present Illness: 49-year-old female presents to the emergency room complaining of fever body aches and headache for 4 days. Patient last took Tylenol about 530 this morning. 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 Past medical history of hypertension, diabetes and asthma and cirrhosis of the liver. - Exam Vital Signs: Vital Signs 06/07/20 07:11 Temperature 97.6 F Pulse Rate 132 H Respiratory 16 Rate Blood Pressure 122/70 O2 Sat by Pulse 96 Oximetry MSE screening note: Focused history and physical exam performed. Due to findings the following was ordered: ED Disposition for MSE Condition: Stable
--- NOTE | 2020-06-07 07:25 | Emergency Department Report ---
ED Fever HPI - General Chief Complaint: Fever Stated Complaint: FEVER,HEADACHE Time Seen by Provider: 06/07/20 07:20 Source: patient Exam Limitations: no limitations - History of Present Illness Initial Comments: 49-year-old female presents to the emergency room complaining of fever body aches and headache for 4 days. Patient last took Tylenol about 530 this morning. 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 Past medical history of hypertension, diabetes and asthma and cirrhosis of the liver. Timing/Duration: constant (times 4 days) Fever Severity/Quality: greater than 102 F Fever Therapy USER INTERFACE DESIGNER: Tylenol (0530) Associated Symptoms: muscle aches, nausea/vomiting. denies: shortness of breath ED Review of Systems ROS: Stated complaint: FEVER,HEADACHE Other details as noted in HPI Comment: All other systems reviewed and negative ED Past Medical Hx - Past Medical History Previous Medical History?: Yes Hx Hypertension: Yes Hx Congestive Heart Failure: No Hx Diabetes: Yes Hx Liver Disease: Yes (Cirrhosis) Hx Asthma: No Hx COPD: No Additional medical history: Cirrhosis - Surgical History Past Surgical History?: Yes Hx Cholecystectomy: Yes Additional Surgical History: liver biopsy - Social History Smoking Status: Never Smoker Substance Use Type: None - Medications Home Medications: Home Medications Medication Instructions Recorded Confirmed Last Taken Type Propranolol HCl 20 mg PO Q8H #90 tablet 05/29/19 07/03/19 Unknown Rx lisinopriL [Zestril TAB] 10 mg PO QDAY #90 tablet 05/29/19 07/03/19 Unknown Rx metFORMIN XR [Glucophage XR] 500 mg PO QDDIAB #90 tablet 05/29/19 07/03/19 Unknown Rx methIMAzole [Tapazole] 5 mg PO Q8HR #90 tablet 05/29/19 07/03/19 Unknown Rx Insulin NPH/Regular [NovoLIN 70/30] 22 unit SUB-Q BIDDIAB #2 vial 07/04/19 Unknown Rx cefUROXime [Ceftin] 2 tab PO Q12H 10 Days #40 tablet 07/04/19 Unknown Rx ED Physical Exam - General Limitations: No Limitations ED Course Vital Signs 06/07/20 07:11 Temperature 97.6 F Pulse Rate 132 H Respiratory 16 Rate Blood Pressure 122/70 O2 Sat by Pulse 96 Oximetry ED Medical Decision Making - Medical Decision Making 49-year-old female presents to the emergency room complaining of fever body aches and headache for 4 days. Patient last took Tylenol about 530 this morning. 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 Past medical history of hypertension, diabetes and asthma and cirrhosis of the liver. Critical care attestation.: If time is entered above; I have spent that time in minutes in the direct care of this critically ill patient, excluding procedure time. ED Disposition Condition: Stable
[2020-06-07 08:10] LABS: Basophils % (Auto) 0.3 % (0.0-1.8); Eosinophils % (Auto) 0.8 % (0.0-4.3); Hematocrit 43.5 % (30.3-42.9); Hemoglobin 14.9 gm/dl (10.1-14.3); Lymphocytes # (Auto) 1.1 K/mm3 (1.2-5.4); Lymphocytes % (Auto) 20.2 % (13.4-35.0); Mean Corpuscular HGB Conc 34 % (30-34); Mean Corpuscular Volume 86 fl (79-97); Monocytes # (Auto) 0.6 K/mm3 (0.0-0.8); Monocytes % (Auto) 11.3 % (0.0-7.3); Platelet Count 206 K/mm3 (140-440); Red Blood Count 5.04 M/mm3 (3.65-5.03); Red Cell Distribution Width 14.5 % (13.2-15.2)
[2020-06-07 08:33] LABS: Alanine Aminotransferase 61 units/L (7-56); Albumin 4.2 g/dL (3.9-5); BUN/Creatinine Ratio 19; Blood Urea Nitrogen 15 mg/dL (7-17); Calcium 9.1 mg/dL (8.4-10.2); Hemolysis Index 5
[2020-06-07] MEDS ORDERED: SODIUM CHLORIDE 0.9% 1000 ML 1,000 ML IV ONE ×2 (08:35→11:55)
[2020-06-07] MEDS ORDERED: ONDANSETRON 4 MG/2 ML INJ IV ONE (08:35)
[2020-06-07 09:30] LABS: Bilirubin,Urine NEG (Negative); Blood,Urine NEG (Negative); Color,Urine Yellow (Yellow); Urobilinogen,Urine < 2.0 mg/dL (<2.0)
--- NOTE | 2020-06-07 09:35 | Emergency Department Report ---
ED General Adult HPI - General Chief complaint: Fever Stated complaint: FEVER,HEADACHE Time Seen by Provider: 06/07/20 07:20 Source: patient Mode of arrival: Ambulatory Limitations: No Limitations - History of Present Illness Initial comments: This is a 49-year-old insulin-dependent diabetic lady who states that she has had a flulike illness since Tuesday. She did not take her insulin today. She has a history of hypertension. Apparently she was admitted to this facility for Klebsiella and sepsis. Review of her prior urine culture indicated was positive for Klebsiella and beta hemolytic strep. Patient states that she has had intermittent headaches which are associated with her fever. She states that her temperature has been as high as 103 on Tuesday. She states that it "spiked up" to 101 again today. She states that she has had some left earache and felt like she had a swollen gland in her left neck. She associates the headaches with fever. She states that the headaches resolved with the fever. She does not report any photophobia or neck stiffness or soreness at the present time. He states that when she walks she can feel her heart racing and some generalized weakness but does not describe exertional dyspnea. 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 She does not report any specific Covid exposure. Last hospitalization ID Note Assessment: 48 y/o female with history of uncontrolled diabetes, hypertension admitted on 05/24/2019 due to 3-day history of body aches, nausea, frequency and mild dry cough: #Sepsis: present on admission with fever, tachycardia; source pyelonephritis and possible post influenza pneumonia. #Pyelonephritis: urine culture positive for Klebsiella #Possible post influenza pneumonia: with recent flu symptoms. Recommendations: -: Gradual, days(s) Location: head (Generalized mostly anterior) Radiation: non-radiation Quality: aching Consistency: now resolved Improves with: none Worsens with: none Associated Symptoms: denies other symptoms, fever/chills, headaches, weakness Treatments Prior to Arrival: none - Related Data Previous Rx's Medication Instructions Recorded Last Taken Type Propranolol HCl 20 mg PO Q8H #90 tablet 05/29/19 Unknown Rx lisinopriL [Zestril TAB] 10 mg PO QDAY #90 tablet 05/29/19 Unknown Rx metFORMIN XR [Glucophage XR] 500 mg PO QDDIAB #90 tablet 05/29/19 Unknown Rx methIMAzole [Tapazole] 5 mg PO Q8HR #90 tablet 05/29/19 Unknown Rx Insulin NPH/Regular [NovoLIN 70/30] 22 unit SUB-Q BIDDIAB #2 vial 07/04/19 Unknown Rx cefUROXime [Ceftin] 2 tab PO Q12H 10 Days #40 tablet 07/04/19 Unknown Rx Allergies Allergy/AdvReac Type Severity Reaction Status Date / Time fentanyl Allergy Nausea Verified 07/08/17 01:06 tramadol Allergy Hives Verified 07/08/17 01:06 ED Review of Systems ROS: Stated complaint: FEVER,HEADACHE Other details as noted in HPI Constitutional: chills, fever, weakness Eyes: denies: eye pain, eye discharge, vision change ENT: as per HPI, ear pain. denies: throat pain Respiratory: denies: cough, shortness of breath Cardiovascular: denies: chest pain, palpitations Endocrine: no symptoms reported Gastrointestinal: denies: abdominal pain, nausea, diarrhea Genitourinary: discharge. denies: urgency, dysuria Musculoskeletal: arthralgia. denies: back pain, joint swelling Skin: denies: rash, lesions Neurological: headache. denies: weakness, paresthesias Psychiatric: denies: anxiety, depression Hematological/Lymphatic: denies: easy bleeding, easy bruising ED Past Medical Hx - Past Medical History Previous Medical History?: Yes Hx Hypertension: Yes Hx Congestive Heart Failure: No Hx Diabetes: Yes Hx Liver Disease: Yes (Cirrhosis) Hx Asthma: No Hx COPD: No Additional medical history: Cirrhosis - Surgical History Past Surgical History?: Yes Hx Cholecystectomy: Yes Additional Surgical History: liver biopsy - Social History Smoking Status: Never Smoker Substance Use Type: None - Medications Home Medications: Home Medications Medication Instructions Recorded Confirmed Last Taken Type Propranolol HCl 20 mg PO Q8H #90 tablet 05/29/19 07/03/19 Unknown Rx lisinopriL [Zestril TAB] 10 mg PO QDAY #90 tablet 05/29/19 07/03/19 Unknown Rx metFORMIN XR [Glucophage XR] 500 mg PO QDDIAB #90 tablet 05/29/19 07/03/19 Unknown Rx methIMAzole [Tapazole] 5 mg PO Q8HR #90 tablet 05/29/19 07/03/19 Unknown Rx Insulin NPH/Regular [NovoLIN 70/30] 22 unit SUB-Q BIDDIAB #2 vial 07/04/19 Unknown Rx cefUROXime [Ceftin] 2 tab PO Q12H 10 Days #40 tablet 07/04/19 Unknown Rx ED Physical Exam - General Limitations: No Limitations General appearance: alert, in no apparent distress - Head Head exam: Present: atraumatic, normocephalic - Eye Eye exam: Present: normal appearance. Absent: scleral icterus - ENT ENT exam: Present: mucous membranes moist, TM's normal bilaterally (On left) - Neck Neck exam: Present: normal inspection. Absent: tenderness, meningismus, lymphadenopathy, thyromegaly - Respiratory Respiratory exam: Present: normal lung sounds bilaterally. Absent: respiratory distress - Cardiovascular Cardiovascular Exam: Present: regular rate, normal rhythm. Absent: systolic murmur, diastolic murmur, rubs, gallop - GI/Abdominal GI/Abdominal exam: Present: soft, normal bowel sounds. Absent: distended, tenderness, guarding, rebound, rigid - Extremities Exam Extremities exam: Present: normal inspection - Back Exam Back exam: Present: normal inspection - Neurological Exam Neurological exam: Present: alert, oriented X3, CN II-XII intact. Absent: motor sensory deficit - Psychiatric Psychiatric exam: Present: normal affect, normal mood - Skin Skin exam: Present: warm, dry, intact, normal color. Absent: rash ED Course Vital Signs 06/07/20 06/07/20 06/07/20 07:11 09:30 09:31 Temperature 97.6 F Pulse Rate 132 H 119 H Respiratory 16 18 13 Rate Blood Pressure 122/70 125/64 O2 Sat by Pulse 96 98 Oximetry 06/07/20 06/07/20 06/07/20 09:45 10:00 10:01 Temperature Pulse Rate 108 H 106 H 112 H Respiratory 15 17 Rate Blood Pressure 137/72 137/72 O2 Sat by Pulse 98 99 Oximetry 06/07/20 06/07/20 06/07/20 10:15 10:31 10:45 Temperature Pulse Rate 115 H 114 H 112 H Respiratory 17 17 10 L Rate Blood Pressure 135/62 135/62 119/58 O2 Sat by Pulse 98 99 98 Oximetry 06/07/20 06/07/20 06/07/20 11:01 11:15 11:31 Temperature Pulse Rate 113 H 113 H 111 H Respiratory 16 13 14 Rate Blood Pressure 119/58 121/73 121/73 O2 Sat by Pulse 98 98 98 Oximetry 06/07/20 11:45 Temperature Pulse Rate 120 H Respiratory 14 Rate Blood Pressure 140/71 O2 Sat by Pulse 97 Oximetry - Reevaluation(s) Reevaluation #1: Discussed with hospitalist. Agree with admitting the patient observation status. She is placed as PUI. Her admission last year was very similar when she was found to have a focal pyelonephritis. It is possible that is what it is now. She was given cefepime empirically insulin and IV fluids. 06/07/20 11:54 ED Medical Decision Making - Lab Data Result diagrams: 06/07/20 07:55 06/07/20 09:48 Laboratory Results - last 24 hr 06/07/20 06/07/20 06/07/20 07:55 07:55 09:48 WBC 5.7 RBC 5.04 H Hgb 14.9 H Hct 43.5 H MCV 86 MCH 30 MCHC 34 RDW 14.5 Plt Count 206 Lymph % (Auto) 20.2 [place] % (Auto) 11.3 H Eos % (Auto) 0.8 Baso % (Auto) 0.3 Lymph # (Auto) 1.1 L [place] # (Auto) 0.6 Eos # (Auto) 0.0 Baso # (Auto) 0.0 Seg Neutrophils % 67.4 Seg Neutrophils # 3.8 Sodium 133 L Potassium 4.5 Chloride 100.3 Carbon Dioxide 18 L Anion Gap 19 BUN 15 Creatinine 0.8 Estimated GFR > 60 BUN/Creatinine Ratio 19 Glucose 352 H 342 H Calcium 9.1 Magnesium Ferritin Total Bilirubin 0.90 AST 62 H ALT 61 H Alkaline Phosphatase 122 Lactate Dehydrogenase 286 H Troponin T C-Reactive Protein 25.70 H NT-Pro-B Natriuret Pep Total Protein 8.3 H Albumin 4.2 Albumin/Globulin Ratio 1.0 Urine Bilirubin Urine RBC (Auto) U Epithel Cells (Auto) 06/07/20 06/07/20 06/07/20 09:48 09:48 Unknown WBC RBC Hgb Hct MCV MCH MCHC RDW Plt Count Lymph % (Auto) [place] % (Auto) Eos % (Auto) Baso % (Auto) Lymph # (Auto) [place] # (Auto) Eos # (Auto) Baso # (Auto) Seg Neutrophils % Seg Neutrophils # Sodium Potassium Chloride Carbon Dioxide Anion Gap BUN Creatinine Estimated GFR BUN/Creatinine Ratio Glucose Calcium Magnesium 2.00 Ferritin 604.7 H Total Bilirubin AST ALT Alkaline Phosphatase Lactate Dehydrogenase Troponin T < 0.010 C-Reactive Protein NT-Pro-B Natriuret Pep 38.19 Total Protein Albumin Albumin/Globulin Ratio Urine Bilirubin Neg Urine RBC (Auto) 1.0 U Epithel Cells (Auto) < 1.0 Laboratory Results - last 24 hr 06/07/20 06/07/20 06/07/20 07:55 07:55 09:48 WBC 5.7 RBC 5.04 H Hgb 14.9 H Hct 43.5 H MCV 86 MCH 30 MCHC 34 RDW 14.5 Plt Count 206 Lymph % (Auto) 20.2 [place] % (Auto) 11.3 H Eos % (Auto) 0.8 Baso % (Auto) 0.3 Lymph # (Auto) 1.1 L [place] # (Auto) 0.6 Eos # (Auto) 0.0 Baso # (Auto) 0.0 Seg Neutrophils % 67.4 Seg Neutrophils # 3.8 Sodium 133 L Potassium 4.5 Chloride 100.3 Carbon Dioxide 18 L Anion Gap 19 BUN 15 Creatinine 0.8 Estimated GFR > 60 BUN/Creatinine Ratio 19 Glucose 352 H 342 H Lactic Acid Calcium 9.1 Magnesium Ferritin Total Bilirubin 0.90 AST 62 H ALT 61 H Alkaline Phosphatase 122 Lactate Dehydrogenase 286 H Troponin T C-Reactive Protein 25.70 H NT-Pro-B Natriuret Pep Total Protein 8.3 H Albumin 4.2 Albumin/Globulin Ratio 1.0 Urine Color Urine Turbidity Urine pH Ur Specific [place] Urine Protein Urine Glucose (UA) Urine Ketones Urine Blood Urine Nitrite Urine Bilirubin Urine Urobilinogen Ur Leukocyte Esterase Urine WBC (Auto) Urine RBC (Auto) U Epithel Cells (Auto) 06/07/20 06/07/20 06/07/20 09:48 09:48 10:17 WBC RBC Hgb Hct MCV MCH MCHC RDW Plt Count Lymph % (Auto) [place] % (Auto) Eos % (Auto) Baso % (Auto) Lymph # (Auto) [place] # (Auto) Eos # (Auto) Baso # (Auto) Seg Neutrophils % Seg Neutrophils # Sodium Potassium Chloride Carbon Dioxide Anion Gap BUN Creatinine Estimated GFR BUN/Creatinine Ratio Glucose Lactic Acid 0.80 Calcium Magnesium 2.00 Ferritin 604.7 H Total Bilirubin AST ALT Alkaline Phosphatase Lactate Dehydrogenase Troponin T < 0.010 C-Reactive Protein NT-Pro-B Natriuret Pep 38.19 Total Protein Albumin Albumin/Globulin Ratio Urine Color Urine Turbidity Urine pH Ur Specific [place] Urine Protein Urine Glucose (UA) Urine Ketones Urine Blood Urine Nitrite Urine Bilirubin Urine Urobilinogen Ur Leukocyte Esterase Urine WBC (Auto) Urine RBC (Auto) U Epithel Cells (Auto) 06/07/20 Unknown WBC RBC Hgb Hct MCV MCH MCHC RDW Plt Count Lymph % (Auto) [place] % (Auto) Eos % (Auto) Baso % (Auto) Lymph # (Auto) [place] # (Auto) Eos # (Auto) Baso # (Auto) Seg Neutrophils % Seg Neutrophils # Sodium Potassium Chloride Carbon Dioxide Anion Gap BUN Creatinine Estimated GFR BUN/Creatinine Ratio Glucose Lactic Acid Calcium Magnesium Ferritin Total Bilirubin AST ALT Alkaline Phosphatase Lactate Dehydrogenase Troponin T C-Reactive Protein NT-Pro-B Natriuret Pep Total Protein Albumin Albumin/Globulin Ratio Urine Color Yellow Urine Turbidity Clear Urine pH 6.0 Ur Specific [place] 1.030 Urine Protein 100 mg/dl Urine Glucose (UA) >=500 Urine Ketones 80 Urine Blood Neg Urine Nitrite Neg Urine Bilirubin Neg Urine Urobilinogen < 2.0 Ur Leukocyte Esterase Neg Urine WBC (Auto) 2.0 Urine RBC (Auto) 1.0 U Epithel Cells (Auto) < 1.0 Laboratory Results - last 24 hr 06/07/20 06/07/20 06/07/20 07:55 07:55 09:48 WBC 5.7 RBC 5.04 H Hgb 14.9 H Hct 43.5 H MCV 86 MCH 30 MCHC 34 RDW 14.5 Plt Count 206 Lymph % (Auto) 20.2 [place] % (Auto) 11.3 H Eos % (Auto) 0.8 Baso % (Auto) 0.3 Lymph # (Auto) 1.1 L [place] # (Auto) 0.6 Eos # (Auto) 0.0 Baso # (Auto) 0.0 Seg Neutrophils % 67.4 Seg Neutrophils # 3.8 PT INR APTT D-Dimer Sodium 133 L Potassium 4.5 Chloride 100.3 Carbon Dioxide 18 L Anion Gap 19 BUN 15 Creatinine 0.8 Estimated GFR > 60 BUN/Creatinine Ratio 19 Glucose 352 H 342 H Lactic Acid Calcium 9.1 Magnesium Ferritin Total Bilirubin 0.90 AST 62 H ALT 61 H Alkaline Phosphatase 122 Ammonia Lactate Dehydrogenase 286 H Troponin T C-Reactive Protein 25.70 H NT-Pro-B Natriuret Pep Total Protein 8.3 H Albumin 4.2 Albumin/Globulin Ratio 1.0 Urine Color Urine Turbidity Urine pH Ur Specific [place] Urine Protein Urine Glucose (UA) Urine Ketones Urine Blood Urine Nitrite Urine Bilirubin Urine Urobilinogen Ur Leukocyte Esterase Urine WBC (Auto) Urine RBC (Auto) U Epithel Cells (Auto) 06/07/20 06/07/20 06/07/20 09:48 09:48 09:48 WBC RBC Hgb Hct MCV MCH MCHC RDW Plt Count Lymph % (Auto) [place] % (Auto) Eos % (Auto) Baso % (Auto) Lymph # (Auto) [place] # (Auto) Eos # (Auto) Baso # (Auto) Seg Neutrophils % Seg Neutrophils # PT 15.2 H INR 1.22 H APTT 30.2 D-Dimer 647.16 H Sodium Potassium Chloride Carbon Dioxide Anion Gap BUN Creatinine Estimated GFR BUN/Creatinine Ratio Glucose Lactic Acid Calcium Magnesium 2.00 Ferritin 604.7 H Total Bilirubin AST ALT Alkaline Phosphatase Ammonia Lactate Dehydrogenase Troponin T < 0.010 C-Reactive Protein NT-Pro-B Natriuret Pep 38.19 Total Protein Albumin Albumin/Globulin Ratio Urine Color Urine Turbidity Urine pH Ur Specific [place] Urine Protein Urine Glucose (UA) Urine Ketones Urine Blood Urine Nitrite Urine Bilirubin Urine Urobilinogen Ur Leukocyte Esterase Urine WBC (Auto) Urine RBC (Auto) U Epithel Cells (Auto) 06/07/20 06/07/20 06/07/20 10:17 10:17 Unknown WBC RBC Hgb Hct MCV MCH MCHC RDW Plt Count Lymph % (Auto) [place] % (Auto) Eos % (Auto) Baso % (Auto) Lymph # (Auto) [place] # (Auto) Eos # (Auto) Baso # (Auto) Seg Neutrophils % Seg Neutrophils # PT INR APTT D-Dimer Sodium Potassium Chloride Carbon Dioxide Anion Gap BUN Creatinine Estimated GFR BUN/Creatinine Ratio Glucose Lactic Acid 0.80 Calcium Magnesium Ferritin Total Bilirubin AST ALT Alkaline Phosphatase Ammonia 37.0 Lactate Dehydrogenase Troponin T C-Reactive Protein NT-Pro-B Natriuret Pep Total Protein Albumin Albumin/Globulin Ratio Urine Color Yellow Urine Turbidity Clear Urine pH 6.0 Ur Specific [place] 1.030 Urine Protein 100 mg/dl Urine Glucose (UA) >=500 Urine Ketones 80 Urine Blood Neg Urine Nitrite Neg Urine Bilirubin Neg Urine Urobilinogen < 2.0 Ur Leukocyte Esterase Neg Urine WBC (Auto) 2.0 Urine RBC (Auto) 1.0 U Epithel Cells (Auto) < 1.0 Critical care attestation.: If time is entered above; I have spent that time in minutes in the direct care of this critically ill patient, excluding procedure time. ED Disposition Clinical Impression: Acute pyelonephritis, SIRS (systemic inflammatory response syndrome), Hyperglycemia due to type 1 diabetes mellitus, Person under investigation for COVID-19 Disposition: OP ADMIT IP TO THIS HOSP Is pt being admited?: Yes Does the pt Need Aspirin: No Condition: Stable Instructions: Diabetes Mellitus Type 2 in Adults (ED) Referrals: PRIMARY CARE, [Primary Care Provider] - 3-5 Days Time of Disposition: 11:56
[2020-06-07] MEDS ORDERED: INSULIN REGULAR, HUMAN 100 UNITS/1 ML IV ONE (09:44)
[2020-06-07 10:13] LABS: C-Reactive Protein 25.7 mg/dL (0.00-1.30)
[2020-06-07] MEDS ORDERED: CEFEPIME/NS 1 GM/100 ML 1 GM/100 ML BAG IV ONE (10:37)
[2020-06-07 11:21] LABS: INR 1.22 (0.87-1.13)
[2020-06-07 11:22] LABS: Partial Thromboplastin Time 30.2 Sec. (24.2-36.6)
--- NOTE | 2020-06-07 11:27 | XRay Report ---
CHEST 1 VIEW INDICATION / CLINICAL INFORMATION: hypertension. COMPARISON: 07/02/2019 FINDINGS: SUPPORT DEVICES: None. HEART / MEDIASTINUM: No significant abnormality. LUNGS / PLEURA: No significant pulmonary or pleural abnormality. No pneumothorax. ADDITIONAL FINDINGS: No significant additional findings. IMPRESSION: No acute disease or interval change from 07/02/2019 Signer Name: Washington Peterson MD FACR Signed: 06/07/2020 11:23 AM Workstation Name: [id number]
--- NOTE | 2020-06-07 19:19 | Progress Note ---
Assessment and Plan - Patient Problems (1) SIRS (systemic inflammatory response syndrome) Current Visit: Yes Status: Acute Plan to address problem: Patient has fever and a fast heart rate. Chest x-ray is normal. Urine is normal. Patient has systemic inflammatory response syndrome. Empiric ceftriaxone--till cultures come back (2) Hyponatremia Current Visit: No Status: Acute Plan to address problem: IV normal saline for now Recheck sodium level (3) Person under investigation for COVID-19 Current Visit: Yes Status: Acute Plan to address problem: Coronavirus PCR pending (4) IDDM (insulin dependent diabetes mellitus) Current Visit: Yes Status: Chronic Plan to address problem: Patient is on insulin 70/30 22 units twice a day Insulin increased to 28 units twice a day (5) Thyrotoxicosis Current Visit: Yes Status: Chronic Plan to address problem: Continue methimazole and propranolol. Check thyroid profile including TSH (6) HTN (hypertension) Current Visit: Yes Status: Chronic Qualifiers: Hypertension type: essential hypertension Qualified Code(s): I10 - Essential (primary) hypertension Plan to address problem: Continue blood pressure medication and adjust as necessary (7) DVT prophylaxis Current Visit: Yes Status: Acute Plan to address problem: Patient on heparin and GI prophylaxis Subjective Date of service: 06/07/20 Principal diagnosis: Fever since 3 days Interval history: 49-year-old with history of insulin-dependent diabetes, hypertension and thyrotoxicosis on methimazole and propranolol comes in for fever off and on since Tuesday which is 3 days ago. Since 06/04/2020. Patient has been having flulike symptoms. Patient had a temperature 103 on Tuesday and 101 yesterday. Patient has dysuria. Patient also has left earache. Patient was admitted and June last year for UTI with Klebsiella and strep and was treated with Rocephin and Ceftin orally. Patient continues to have fever and flulike symptoms over the last 3 days. Body aches present. Some dysuria present. No chills. No anosmia or loss of taste. No exposure to coronavirus. Last admission reviewed--admission was in June 2019. Patient had acute pyelonephritis and was treated with IV Rocephin. Culture showed Klebsiella and strep. - Past Medical History Previous Medical History?: Yes --Hypertension: Yes --Diabetes: Yes --Liver Disease: Yes (Cirrhosis) --Cirrhosis- yes --Thyrotoxicosis --Surgical History Past Surgical History?: Yes Cholecystectomy: Yes Additional Surgical History: liver biopsy - -Social History Smoking Status: Never Smoker Substance Use Type: None Family History Htn Review of Systems ROS: Stated complaint: FEVER,HEADACHE Other details as noted in HPI Constitutional: chills, fever, weakness Eyes: denies: eye pain, eye discharge, vision change ENT: as per HPI, ear pain. denies: throat pain Respiratory: denies: cough, shortness of breath Cardiovascular: denies: chest pain, palpitations Endocrine: no symptoms reported Gastrointestinal: denies: abdominal pain, nausea, diarrhea Genitourinary: discharge. denies: urgency, dysuria Musculoskeletal: arthralgia. denies: back pain, joint swelling Skin: denies: rash, lesions Neurological: headache. denies: weakness, paresthesias Psychiatric: denies: anxiety, depression Hematological/Lymphatic: denies: easy bleeding, easy bruising Objective - Constitutional Vitals: Vital Signs - 12hr 06/07/20 06/07/20 06/07/20 09:30 09:31 09:45 Temperature Pulse Rate 119 H 108 H Respiratory 18 13 15 Rate Blood Pressure 125/64 137/72 O2 Sat by Pulse 98 98 Oximetry 06/07/20 06/07/20 06/07/20 10:00 10:01 10:15 Temperature Pulse Rate 106 H 112 H 115 H Respiratory 17 17 Rate Blood Pressure 137/72 135/62 O2 Sat by Pulse 99 98 Oximetry 06/07/20 06/07/20 06/07/20 10:31 10:45 11:01 Temperature Pulse Rate 114 H 112 H 113 H Respiratory 17 10 L 16 Rate Blood Pressure 135/62 119/58 119/58 O2 Sat by Pulse 99 98 98 Oximetry 06/07/20 06/07/20 06/07/20 11:15 11:31 11:45 Temperature Pulse Rate 113 H 111 H 120 H Respiratory 13 14 14 Rate Blood Pressure 121/73 121/73 140/71 O2 Sat by Pulse 98 98 97 Oximetry 06/07/20 06/07/20 06/07/20 11:51 12:00 12:10 Temperature Pulse Rate 124 H 116 H 111 H Respiratory 16 19 19 Rate Blood Pressure 140/71 137/72 135/62 O2 Sat by Pulse 98 99 99 Oximetry 06/07/20 06/07/20 06/07/20 12:20 12:30 12:41 Temperature Pulse Rate 113 H 112 H 124 H Respiratory 17 17 20 Rate Blood Pressure 135/62 113/62 113/62 O2 Sat by Pulse 98 Oximetry 06/07/20 06/07/20 06/07/20 12:51 13:01 13:11 Temperature Pulse Rate 120 H 123 H 118 H Respiratory 16 16 18 Rate Blood Pressure 113/62 135/62 135/62 O2 Sat by Pulse Oximetry 06/07/20 06/07/20 06/07/20 13:21 13:30 16:12 Temperature 98.0 F Pulse Rate 112 H 111 H 109 H Respiratory 12 16 16 Rate Blood Pressure 119/53 119/53 119/57 O2 Sat by Pulse 96 Oximetry General appearance: Present: no acute distress, well-nourished - EENT Eyes: PERRL, EOM intact ENT: hearing intact, clear oral mucosa Ears: bilateral: normal - Neck Neck: supple, normal ROM - Respiratory Respiratory effort: normal Respiratory: bilateral: CTA - Breasts Breasts: normal - Cardiovascular Heart rate: 124 Rhythm: regular Heart Sounds: Present: S1 & S2. Absent: gallop, rub Extremities: pulses intact, No edema, normal color, Full ROM - Gastrointestinal General gastrointestinal: Present: soft, non-tender, non-distended, normal bowel sounds - Genitourinary Female genitourinary: normal - Integumentary Integumentary: clear, warm, dry - Musculoskeletal Musculoskeletal: 1, strength equal bilaterally - Neurologic Neurologic: moves all extremities - Psychiatric Psychiatric: memory intact, appropriate mood/affect, intact judgment & insight - Labs CBC & Chem 7: 06/07/20 07:55 06/07/20 09:48 Labs: Abnormal lab results 06/07/20 06/07/20 06/07/20 Range/Units 07:55 07:55 09:48 RBC 5.04 H (3.65-5.03) M/mm3 Hgb 14.9 H (10.1-14.3) gm/dl Hct 43.5 H (30.3-42.9) % [place] % (Auto) 11.3 H (0.0-7.3) % Lymph # (Auto) 1.1 L (1.2-5.4) K/mm3 PT (12.2-14.9) Sec. INR (0.87-1.13) D-Dimer (0-234) ng/mlDDU Sodium 133 L (137-145) mmol/L Carbon Dioxide 18 L (22-30) mmol/L Glucose 352 H 342 H (65-100) mg/dL POC Glucose (70-105) mg/dL Ferritin (10.0-200.0) ng/mL AST 62 H (5-40) units/L ALT 61 H (7-56) units/L Lactate Dehydrogenase 286 H (91-180) units/L C-Reactive Protein 25.70 H (0.00-1.30) mg/dL Total Protein 8.3 H (6.3-8.2) g/dL 06/07/20 06/07/20 06/07/20 Range/Units 09:48 09:48 16:55 RBC (3.65-5.03) M/mm3 Hgb (10.1-14.3) gm/dl Hct (30.3-42.9) % [place] % (Auto) (0.0-7.3) % Lymph # (Auto) (1.2-5.4) K/mm3 PT 15.2 H (12.2-14.9) Sec. INR 1.22 H (0.87-1.13) D-Dimer 647.16 H (0-234) ng/mlDDU Sodium (137-145) mmol/L Carbon Dioxide (22-30) mmol/L Glucose (65-100) mg/dL POC Glucose 252 H (70-105) mg/dL Ferritin 604.7 H (10.0-200.0) ng/mL AST (5-40) units/L ALT (7-56) units/L Lactate Dehydrogenase (91-180) units/L C-Reactive Protein (0.00-1.30) mg/dL Total Protein (6.3-8.2) g/dL - Imaging and cardiology Chest x-ray: report reviewed (No acute findings) HEART Score - HEART Score Troponin: Troponin T < 0.010 ng/mL (0.00-0.029) 06/07/20 09:48
[2020-06-07] MEDS ORDERED: ONDANSETRON 4 MG/2 ML INJ IV PRN (19:31)
[2020-06-07] MEDS ORDERED: METOCLOPRAMIDE 10 MG/2 ML INJ IV PRN (19:31)
[2020-06-07] MEDS ORDERED: HYDROmorphone 1 MG/1 ML INJ IV PRN (19:31)
[2020-06-07] MEDS ORDERED: ACETAMINOPHEN 325 MG TAB PO PRN (19:31)
[2020-06-07] MEDS ORDERED: SODIUM CHLORIDE 0.9% 1000 ML 1,000 ML IV SCH (19:45)
[2020-06-07] MEDS ORDERED: cefTRIAXone/NS 2 GM/100 ML 2 GM/100 ML BAG IV SCH (22:00)
[2020-06-07 22:20] LABS: Free T4 (Free Thyroxine) 1.58 ng/dL (0.76-1.46)
[2020-06-07] MEDS: FAMOTIDINE 20 MG/2 ML INJ IV SCH (22:26)
[2020-06-07] MEDS: oxyCODONE /ACETAMINOPHEN 5-325MG TAB PO PRN (22:26)
[2020-06-07] MEDS: HEPARIN 5,000 UNIT/1 ML VIAL SUB-Q SCH (22:27)
[2020-06-07] MEDS: INSULIN LISPRO 100 UNIT/ML SUB-Q SCH (22:27)
[2020-06-07] MEDS: PROPRANOLOL 10 MG TAB PO SCH (22:28)
[2020-06-07] MEDS: methIMAzole 5 MG TAB PO SCH (22:28)
[2020-06-07] MEDS: LISINOPRIL 10 MG TAB PO SCH (22:28)
[2020-06-08 04:35] VITALS: BP 117/67
[2020-06-08] MEDS: methIMAzole 5 MG TAB PO SCH (05:17)
[2020-06-08] MEDS: oxyCODONE /ACETAMINOPHEN 5-325MG TAB PO PRN (05:17)
[2020-06-08] MEDS: PROPRANOLOL 10 MG TAB PO SCH ×2 (05:17→12:41)
[2020-06-08 06:24] LABS: Basophils % (Auto) 0.6 % (0.0-1.8); Eosinophils # (Auto) 0.2 K/mm3 (0.0-0.4); Eosinophils % (Auto) 3.1 % (0.0-4.3); Hematocrit 41.1 % (30.3-42.9); Hemoglobin 13.8 gm/dl (10.1-14.3); Lymphocytes # (Auto) 1.9 K/mm3 (1.2-5.4); Lymphocytes % (Auto) 30.9 % (13.4-35.0); Mean Corpuscular HGB Conc 34 % (30-34); Mean Corpuscular Volume 86 fl (79-97); Monocytes # (Auto) 0.8 K/mm3 (0.0-0.8); Monocytes % (Auto) 12.6 % (0.0-7.3); Platelet Count 232 K/mm3 (140-440); Red Blood Count 4.79 M/mm3 (3.65-5.03); Red Cell Distribution Width 14.6 % (13.2-15.2)
[2020-06-08 06:49] LABS: Alanine Aminotransferase 48 units/L (7-56); Albumin 3.7 g/dL (3.9-5); BUN/Creatinine Ratio 18; Blood Urea Nitrogen 11 mg/dL (7-17); Calcium 8.9 mg/dL (8.4-10.2); Hemolysis Index 5
--- NOTE | 2020-06-08 07:50 | Progress Note ---
Assessment and Plan Assessment and plan: 49-year-old with history of insulin-dependent diabetes, hypertension and thyrotoxicosis on methimazole and propranolol comes in for fever off and on since Tuesday which is 3 days ago. Since 06/04/2020. Patient has been having flulike symptoms. Patient had a temperature 103 on Tuesday and 101 yesterday. Patient has dysuria. Patient also has left earache. Patient was admitted and June last year for UTI with Klebsiella and strep and was treated with Rocephin and Ceftin orally. Patient continues to have fever and flulike symptoms over the last 3 days. Body aches present. Some dysuria present. No chills. No anosmia or loss of taste. No exposure to coronavirus. Last admission reviewed--admission was in June 2019. Patient had acute pyelonephritis and was treated with IV Rocephin. Culture showed Klebsiella and strep. (1) SIRS (systemic inflammatory response syndrome) Current Visit: Yes Status: Acute Plan to address problem: Patient has fever and a fast heart rate. Chest x-ray is normal. Urine is normal. Patient has systemic inflammatory response syndrome. Empiric ceftriax one--till cultures come back (2) Hyponatremia Current Visit: No Status: Acute Plan to address problem: IV normal saline for now Recheck sodium level (3) Person under investigation for COVID-19 Current Visit: Yes Status: Acute Plan to address problem: Coronavirus PCR pending (4) IDDM (insulin dependent diabetes mellitus) Current Visit: Yes Status: Chronic Plan to address problem: Patient is on insulin 70/30 22 units twice a day Insulin increased to 28 units twice a day (5) Thyrotoxicosis Current Visit: Yes Status: Chronic Plan to address problem: Continue methimazole and propranolol. Check thyroid profile including TSH (6) HTN (hypertension) Current Visit: Yes Status: Chronic Qualifiers: Hypertension type: essential hypertension Qualified Code(s): I10 - Essential (primary) hypertension Plan to address problem: Continue blood pressure medication and adjust as necessary (7) DVT prophylaxis Current Visit: Yes Status: Acute Plan to address problem: Patient on heparin and GI prophylaxis 06/08/2020 -Patient does not have any fever in the last 24 hours, blood culture is in progress, urinalysis negative -Thyrotoxicosis, TSH is very low and free T4 is very high, I increase methimazole from 5 mg 3 times daily to 10 mg 3 times daily -Uncontrolled diabetes mellitus type 2; hemoglobin A1c is 11.2, blood sugar is very high. I increased insulin 70/30, from 28units to 35 units twice a day, I added 10 units of Humalog AC -COVID-19 test is negative -Had tachycardia but is getting better. Likely due to thyrotoxicosis -Patient is on empiric antibiotic for SIRS -Blood pressure is well controlled, hyponatremia resolved -D-dimer is elevated and I will do CTA, if CTA is negative patient can go home Disposition; per clinical course History Interval history: Patient was seen and evaluated this morning Patient states she is feeling better Hospitalist Physical - Physical exam Narrative exam: Not in cardiopulmonary distress. The patient appeared well nourished and normally developed. Vital signs as documented. Head exam is unremarkable. No scleral icterus . Neck is without jugular venous distension, thyromegaly, or carotid bruits. Lungs are clear to auscultation. Cardiac exam reveals regular rate and Rhythm. Abdominal exam reveals normal bowel sounds, nontender, no organomegaly. Extremities are nonedematous and both femoral and pedal pulses are normal. 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 - Constitutional Vitals: Temp Pulse Resp BP Pulse Ox 97.3 F L 85 18 117/67 100 06/08/20 04:33 06/08/20 04:33 06/08/20 04:33 06/08/20 04:33 06/08/20 04:33 General appearance: Present: no acute distress, well-nourished HEART Score - HEART Score Troponin: Troponin T < 0.010 ng/mL (0.00-0.029) 06/07/20 09:48 Results - Labs CBC & Chem 7: 06/08/20 04:28 06/08/20 04:28 Labs: Laboratory Last Values WBC 6.1 K/mm3 (4.5-11.0) 06/08/20 04:28 RBC 4.79 M/mm3 (3.65-5.03) 06/08/20 04:28 Hgb 13.8 gm/dl (10.1-14.3) 06/08/20 04:28 Hct 41.1 % (30.3-42.9) 06/08/20 04:28 MCV 86 fl (79-97) 06/08/20 04:28 MCH 29 pg (28-32) 06/08/20 04:28 MCHC 34 % (30-34) 06/08/20 04:28 RDW 14.6 % (13.2-15.2) 06/08/20 04:28 Plt Count 232 K/mm3 (140-440) 06/08/20 04:28 Lymph % (Auto) 30.9 % (13.4-35.0) 06/08/20 04:28 [place] % (Auto) 12.6 % (0.0-7.3) H 06/08/20 04:28 Eos % (Auto) 3.1 % (0.0-4.3) 06/08/20 04:28 Baso % (Auto) 0.6 % (0.0-1.8) 06/08/20 04:28 Lymph # (Auto) 1.9 K/mm3 (1.2-5.4) 06/08/20 04:28 [place] # (Auto) 0.8 K/mm3 (0.0-0.8) 06/08/20 04:28 Eos # (Auto) 0.2 K/mm3 (0.0-0.4) 06/08/20 04:28 Baso # (Auto) 0.0 K/mm3 (0.0-0.1) 06/08/20 04:28 Seg Neutrophils % 52.8 % (40.0-70.0) 06/08/20 04:28 Seg Neutrophils # 3.2 K/mm3 (1.8-7.7) 06/08/20 04:28 PT 15.2 Sec. (12.2-14.9) H 06/07/20 09:48 INR 1.22 (0.87-1.13) H 06/07/20 09:48 APTT 30.2 Sec. (24.2-36.6) 06/07/20 09:48 D-Dimer 647.16 ng/mlDDU (0-234) H 06/07/20 09:48 Sodium 139 mmol/L (137-145) 06/08/20 04:28 Potassium 3.6 mmol/L (3.6-5.0) 06/08/20 04:28 Chloride 107.0 mmol/L (98-107) 06/08/20 04:28 Carbon Dioxide 18 mmol/L (22-30) L 06/08/20 04:28 Anion Gap 18 mmol/L 06/08/20 04:28 BUN 11 mg/dL (7-17) 06/08/20 04:28 Creatinine 0.6 mg/dL (0.6-1.2) 06/08/20 04:28 Estimated GFR > 60 ml/min 06/08/20 04:28 BUN/Creatinine Ratio 18 % 06/08/20 04:28 Glucose 243 mg/dL (65-100) H 06/08/20 04:28 POC Glucose 287 mg/dL (70-105) H 06/07/20 21:53 Hemoglobin A1c 11.9 % (4-6) H 06/07/20 07:55 Lactic Acid 0.80 mmol/L (0.7-2.0) 06/07/20 10:17 Calcium 8.9 mg/dL (8.4-10.2) 06/08/20 04:28 Magnesium 2.00 mg/dL (1.7-2.3) 06/07/20 09:48 Ferritin 604.7 ng/mL (10.0-200.0) H 06/07/20 09:48 Total Bilirubin 0.40 mg/dL (0.1-1.2) 06/08/20 04:28 AST 32 units/L (5-40) 06/08/20 04:28 ALT 48 units/L (7-56) 06/08/20 04:28 Alkaline Phosphatase 104 units/L (35-129) 06/08/20 04:28 Ammonia 37.0 umol/L (25-60) 06/07/20 10:17 Lactate Dehydrogenase 286 units/L (91-180) H 06/07/20 09:48 Troponin T < 0.010 ng/mL (0.00-0.029) 06/07/20 09:48 C-Reactive Protein 25.70 mg/dL (0.00-1.30) H 06/07/20 09:48 NT-Pro-B Natriuret Pep 38.19 pg/mL (0-450) 06/07/20 09:48 Total Protein 7.3 g/dL (6.3-8.2) 06/08/20 04:28 Albumin 3.7 g/dL (3.9-5) L 06/08/20 04:28 Albumin/Globulin Ratio 1.0 % 06/08/20 04:28 Procalcitonin 0.83 ng/mL (<0.15) 06/07/20 09:48 TSH 0.010 mlU/mL (0.270-4.200) L 06/07/20 09:48 Free T4 1.58 ng/dL (0.76-1.46) H 06/07/20 09:48 Urine Color Yellow (Yellow) 06/07/20 Unknown Urine Turbidity Clear (Clear) 06/07/20 Unknown Urine pH 6.0 (5.0-7.0) 06/07/20 Unknown Ur Specific Pyrites 1.030 (1.003-1.030) 06/07/20 Unknown Urine Protein 100 mg/dl mg/dL (Negative) 06/07/20 Unknown Urine Glucose (UA) >=500 mg/dL (Negative) 06/07/20 Unknown Urine Ketones 80 mg/dL (Negative) 06/07/20 Unknown Urine Blood Neg (Negative) 06/07/20 Unknown Urine Nitrite Neg (Negative) 06/07/20 Unknown Urine Bilirubin Neg (Negative) 06/07/20 Unknown Urine Urobilinogen < 2.0 mg/dL (<2.0) 06/07/20 Unknown Ur Leukocyte Esterase Neg (Negative) 06/07/20 Unknown Urine WBC (Auto) 2.0 /HPF (0.0-6.0) 06/07/20 Unknown Urine RBC (Auto) 1.0 /HPF (0.0-6.0) 06/07/20 Unknown U Epithel Cells (Auto) < 1.0 /HPF (0-13.0) 06/07/20 Unknown Coronavirus (PCR) Negative (Negative) 06/07/20 10:41 Microbiology: Microbiology 06/07/20 10:17 Peripheral/Venous Blood Culture - Preliminary Culture in Progress 06/07/20 10:17 Peripheral/Venous Blood Culture - Preliminary Culture in Progress Cunningham/IV: Voiding Method Toilet IV Catheter Type [Right Peripheral IV Antecubital] Active Medications - Current Medications Current Medications: Generic Name Dose Route Start Last Admin Trade Name Freq PRN Reason Stop Dose Admin Acetaminophen 650 mg 06/07/20 19:31 Acetaminophen 325 Mg Tab PO Q4H PRN Pain MILD(1-3)/Fever >100.5/MANZANO Famotidine 20 mg 06/07/20 22:00 06/07/20 22:26 Famotidine 20 Mg/2 Ml Inj IV 20 mg BID HOMERO Administration Heparin Sodium (Porcine) 5,000 unit 06/07/20 22:00 06/07/20 22:27 Heparin 5,000 Unit/1 Ml Vial SUB-Q 5,000 unit Q12HR HOMERO Administration Hydromorphone HCl 0.5 mg 06/07/20 19:31 Hydromorphone 1 Mg/1 Ml Inj IV Q3H PRN Pain , Severe (7-10) Sodium Chloride 1,000 mls @ 75 mls/hr 06/07/20 19:45 06/07/20 22:29 Nacl 0.9% 1000 Ml IV 75 mls/hr DIRECT HOMERO Administration Ceftriaxone Sodium 2 gm in 100 mls @ 200 mls/hr 06/07/20 22:00 06/07/20 22:26 Rocephin/Ns 2 Gm/100 Ml IV 200 mls/hr Q24H HOMERO Administration Protocol Insulin Human Isoph/Insulin Regular 28 unit 06/08/20 08:00 Insulin Nph/Regular 70/30 Inj SUB-Q BIDDIAB [facility] Insulin Human Lispro 0 unit 06/07/20 22:00 06/07/20 22:27 Insulin Lispro 100 Unit/Ml SUB-Q 5 unit ACHS [facility] Administration Protocol Lisinopril 10 mg 06/07/20 20:00 06/07/20 22:28 Lisinopril 10 Mg Tab PO Not Given QDAY [facility] Methimazole 5 mg 06/07/20 22:00 06/08/20 05:17 Methimazole 5 Mg Tab PO 5 mg Q8HR HOMERO Administration Metoclopramide HCl 10 mg 06/07/20 19:31 Metoclopramide 10 Mg/2 Ml Inj IV Q6H PRN Nausea And Vomiting Ondansetron HCl 4 mg 06/07/20 19:31 Ondansetron 4 Mg/2 Ml Inj IV Q8H PRN Nausea And Vomiting Oxycodone/Acetaminophen 1 tab 06/07/20 19:31 06/08/20 05:17 Oxycodone /Acetaminophen 5-325mg Tab PO 1 tab Q6H PRN Administration Pain, Moderate (4-6) Propranolol HCl 20 mg 06/07/20 19:30 06/08/20 05:17 Propranolol 10 Mg Tab PO Not Given Q8H [facility]OMERO Sodium Chloride 10 ml 06/07/20 22:00 06/07/20 22:29 Sodium Chloride 0.9% 10 Ml Flush Syringe IV 10 ml BID HOMERO Administration Sodium Chloride 10 ml 06/07/20 19:31 Sodium Chloride 0.9% 10 Ml Flush Syringe IV PRN PRN LINE FLUSH
[2020-06-08] MEDS ORDERED: INSULIN NPH/REGULAR 70/30 INJ SUB-Q SCH ×2 (08:00)
[2020-06-08] MEDS: INSULIN LISPRO 100 UNIT/ML SUB-Q SCH ×5 (08:17→12:41)
[2020-06-08] MEDS: LISINOPRIL 10 MG TAB PO SCH (09:18)
[2020-06-08] MEDS: FAMOTIDINE 20 MG/2 ML INJ IV SCH (09:18)
[2020-06-08] MEDS: INSULIN NPH/REGULAR 70/30 INJ SUB-Q SCH ×2 (10:35→10:37)
--- NOTE | 2020-06-08 11:03 | Discharge Summary ---
Providers - Providers Date of Admission: 06/07/20 11:56 Date of discharge: 06/08/20 Attending physician: CARLOS APPIAH MD Primary care physician: SPRAGGER Hospitalization Reason for admission: SIRS, uncontrolled diabetes mellitus Condition: Stable Hospital course: 49-year-old with history of insulin-dependent diabetes, hypertension and t hyrotoxicosis on methimazole and propranolol comes in for fever off and on since Tuesday which is 3 days ago. Since 06/04/2020. Patient has been having flulike symptoms. Patient had a temperature 103 on Tuesday and 101 yesterday. Patient has dysuria. Patient also has left earache. Patient was admitted and June last year for UTI with Klebsiella and strep and was treated with Rocephin and Ceftin orally. Patient continues to have fever and flulike symptoms over the last 3 days. Body aches present. Some dysuria present. No chills. No anosmia or loss of taste. No exposure to coronavirus. Last admission reviewed--admission was in June 2019. Patient had acute pyelonephritis and was treated with IV Rocephin. Culture showed Klebsiella and strep. Hospital course (1) SIRS (systemic inflammatory response syndrome) Current Visit: Yes Status: Acute Plan to address problem: Patient has fever and a fast heart rate. Chest x-ray is normal. Urine is normal. Patient has systemic inflammatory response syndrome. Empiric ceftriaxone--till cultures come back (2) Hyponatremia Current Visit: No Status: Acute Plan to address problem: IV normal saline for now Recheck sodium level (3) Person under investigation for COVID-19 Current Visit: Yes Status: Acute Plan to address problem: Coronavirus PCR pending (4) IDDM (insulin dependent diabetes mellitus) Current Visit: Yes Status: Chronic Plan to address problem: Patient is on insulin 70/30 22 units twice a day Insulin increased to 28 units twice a day (5) Thyrotoxicosis Current Visit: Yes Status: Chronic Plan to address problem: Continue methimazole and propranolol. Check thyroid profile including TSH (6) HTN (hypertension) Current Visit: Yes Status: Chronic Qualifiers: Hypertension type: essential hypertension Qualified Code(s): I10 - Essential (primary) hypertension Plan to address problem: Continue blood pressure medication and adjust as necessary (7) DVT prophylaxis Current Visit: Yes Status: Acute Plan to address problem: Patient on heparin and GI prophylaxis 06/08/2020 -Patient does not have any fever in the last 24 hours, blood culture is in progress, urinalysis negative -Thyrotoxicosis, TSH is very low and free T4 is very high, I increase methimazole from 5 mg 3 times daily to 10 mg 3 times daily -Uncontrolled diabetes mellitus type 2; hemoglobin A1c is 11.2, blood sugar is very high. I increased insulin 70/30, from 28units to 35 units twice a day, I added 10 units of Humalog AC -COVID-19 test is negative -Had tachycardia but is getting better. Likely due to thyrotoxicosis -Patient is on empiric antibiotic for SIRS -Blood pressure is well controlled, hyponatremia resolved -D-dimer is elevated and I will do CTA, if CTA is negative patient can go home I increased her insulin 70/30 to 35 minutes twice a day because her hemoglobin is 11.2 and blood sugar is in the upper 200's, and increase her methimazole to 10 mg 3 times daily because free T4 level is very high and TSH is very low. I have advised the patient to follow-up with her primary care physician. CTA was done and was negative and discharged home. Disposition: DC- TO HOME OR SELFCARE Time spent for discharge: 32 minutes - Discharge Diagnoses (1) Hyperglycemia due to type 1 diabetes mellitus Status: Acute (2) SIRS (systemic inflammatory response syndrome) Status: Acute (3) HTN (hypertension) Status: Chronic Qualifiers: Hypertension type: essential hypertension Qualified Code(s): I10 - Essential (primary) hypertension (4) Thyrotoxicosis Status: Chronic Core Measure Documentation - Palliative Care Palliative Care/ Comfort Measures: Not Applicable - Core Measures Any of the following diagnoses?: none Exam - Physical Exam Narrative exam: Not in cardiopulmonary distress. The patient appeared well nourished and normally developed. Vital signs as documented. Head exam is unremarkable. No scleral icterus . Neck is without jugular venous distension, thyromegaly, or carotid bruits. Lungs are clear to auscultation. Cardiac exam reveals regular rate and Rhythm. Abdominal exam reveals normal bowel sounds, nontender, no organomegaly. Extremities are nonedematous and both femoral and pedal pulses are normal. 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 - Constitutional Vitals: Temp Pulse Resp BP Pulse Ox 97.3 F L 85 18 117/67 100 06/08/20 04:33 06/08/20 09:18 06/08/20 04:33 06/08/20 09:18 06/08/20 04:33 Plan Activity: no restrictions Weight Bearing Status: Full Weight Bearing Diet: diabetic Follow up with: PRIMARY CARE, [Primary Care Provider] - 3-5 Days Prescriptions: Insulin NPH/Regular [NovoLIN 70/30] 35 unit SUB-Q BIDDIAB #2 vial methIMAzole [Tapazole] 10 mg PO Q8HR #90 tablet
[2020-06-08] MEDS: HEPARIN 5,000 UNIT/1 ML VIAL SUB-Q SCH (11:44)
--- NOTE | 2020-06-08 12:14 | Cat Scan Report ---
CTA CHEST WITH CONTRAST INDICATION / CLINICAL INFORMATION: Tachycardia, elevated d-dimer TECHNIQUE: Axial CT images were obtained through the chest after injection of 100 mL Omnipaque 350 IV contrast. 3 plane MIP and/or 3D reconstructions were produced. All CT scans at this location are performed usin g CT dose reduction for IVANNARA by means of automated exposure control. COMPARISON: Chest radiograph dated 06/07/2020. FINDINGS: PULMONARY ARTERIES: No pulmonary emboli. THORACIC AORTA: No significant abnormality. HEART: No significant abnormality. CORONARY ARTERIES: No significant calcification. MEDIASTINUM / SERGIO: No significant abnormality. PLEURA: No pleural effusion. No pneumothorax. LUNGS: No acute air space or interstitial disease. ADDITIONAL FINDINGS: None. UPPER ABDOMEN: No acute findings. SKELETAL STRUCTURES: No significant osseous abnormality. IMPRESSION: 1. No CT evidence for pulmonary embolism. 2. No acute findings. Signer Name: Kale Peterson MD Signed: 06/08/2020 12:10 PM Workstation Name: [id number]
[2020-06-08] MEDS ORDERED: methIMAzole 5 MG TAB PO SCH (14:00)
== END 2020-06-08 13:30 | disposition home or self-care (01) ==
LOC: ED 06:58 → 3A 11:56
PROVIDERS: ADMIT Internal Medicine; ATTEND Internal Medicine
DX: N10 Acute pyelonephritis (principal); Z20.828 Contact with and (suspected) exposure to other viral communicable diseases; R65.10 Systemic inflammatory response syndrome (SIRS) of non-infectious origin without acute organ dysfunction; I10 Essential (primary) hypertension; E10.65 Type 1 diabetes mellitus with hyperglycemia; K76.9 Liver disease, unspecified; K74.60 Unspecified cirrhosis of liver; E87.1 Hypo-osmolality and hyponatremia; E05.90 Thyrotoxicosis, unspecified without thyrotoxic crisis or storm; Z79.4 Long term (current) use of insulin; Z90.49 Acquired absence of other specified parts of digestive tract; Z98.890 Other specified postprocedural states; Z79.899 Other long term (current) drug therapy
CPT/HCPCS: 36415; 71045; 71275; 80053; 81001; 82140; 82728; 82947; 82962; 83036; 83615; 83735; 83880; 84145; 84439; 84443; 84484; 85025; 85379; 85610; 85730; 86140; 87040; 87086; 96361; 96365; 96366; 96367; 96372; 96375; 99284; G0378; J0692; J0696; J1644; J2405; J7030; Q9967; U0003; J1815

== ENCOUNTER 2020-09-15 08:39 | Emergency (ER) | payer SELFPAY ==
--- NOTE | 2020-09-15 10:04 | Emergency Department Report ---
ED Chest Pain HPI - General Chief Complaint: Chest Pain Stated Complaint: CHEST PAIN UPON BREATHING Time Seen by Provider: 09/15/20 09:17 Source: patient, EMS Mode of arrival: Stretcher Limitations: No Limitations - History of Present Illness Initial Comments: This is a 49-year-old female presents to the emergency department with a complaint of a 2 to 3-day history of some right-sided chest pain that radiates around the right breast to the rib cage. This started after she was lifting heavy items at work, something between 30 and 50 pounds. Pain worsens with certain movements of her body, movement of the torso, movement of the right upp er extremity, and with palpation of her chest. She also complains of some shortness of breath with deep inspiration/respirations. She has a past medical history that includes hypertension, [id number] diabetes, hypothyroidism and cirrhosis of the liver. No recent travel or sick contacts at home. She tried some ibuprofen for her symptoms without any relief. - Related Data Previous Rx's Medication Instructions Recorded Last Taken Type Propranolol HCl 20 mg PO Q8H #90 tablet 05/29/19 Unknown Rx lisinopriL [Zestril TAB] 10 mg PO QDAY #90 tablet 05/29/19 Unknown Rx metFORMIN XR [Glucophage XR] 500 mg PO QDDIAB #90 tablet 05/29/19 Unknown Rx cefUROXime [Ceftin] 2 tab PO Q12H 10 Days #40 tablet 07/04/19 Unknown Rx Insulin NPH/Regular [NovoLIN 70/30] 35 unit SUB-Q BIDDIAB #2 vial 06/08/20 Unknown Rx methIMAzole [Tapazole] 10 mg PO Q8HR #90 tablet 06/08/20 Unknown Rx Cyclobenzaprine [Flexeril] 10 mg PO TID PRN #12 tablet 09/15/20 Unknown Rx Ibuprofen [Motrin 600 MG tab] 600 mg PO Q8H PRN #20 tablet 09/15/20 Unknown Rx Allergies Allergy/AdvReac Type Severity Reaction Status Date / Time fentanyl Allergy Nausea Verified 07/08/17 01:06 tramadol Allergy Hives Verified 07/08/17 01:06 Heart Score - HEART Score History: Slightly suspicious EKG: Normal Age: 45-65 Risk factors: 1-2 risk factors Troponin: < normal limit HEART Score: 2 - EKG Read Time Time EKG Completed: 12:03 EKG Read Time: 12:05 - Critical Actions Critical Actions: 0-3 pts:0.9-1.7%risk of adverse cardiac event.Candidate for discharge ED Review of Systems ROS: Stated complaint: CHEST PAIN UPON BREATHING Other details as noted in HPI Comment: All other systems reviewed and negative Constitutional: denies: chills, fever Eyes: denies: eye pain, vision change ENT: denies: ear pain, throat pain Respiratory: shortness of breath. denies: cough Cardiovascular: chest pain. denies: palpitations Gastrointestinal: denies: abdominal pain, vomiting Genitourinary: denies: dysuria, discharge Musculoskeletal: denies: back pain, arthralgia Skin: denies: rash, lesions Neurological: denies: headache, weakness ED Past Medical Hx - Past Medical History Hx Hypertension: Yes Hx Heart Attack/AMI: No Hx Congestive Heart Failure: No Hx Diabetes: Yes Hx Deep Vein Thrombosis: No Hx Pulmonary Embolism: No Hx GERD: No Hx Liver Disease: No Hx Renal Disease: No Hx Sickle Cell Disease: No Hx Arthritis: No Hx Headaches / Migraines: No Hx Seizures: No Hx Kidney Stones: No Hx Asthma: No Hx COPD: No Hx Tuberculosis: No Hx Dementia: No Hx HIV: No Additional medical history: Cirrhosis - Surgical History Hx Coronary Stent: No Hx Open Heart Surgery: No Hx Pacemaker: No Hx Cholecystectomy: No Hx Appendectomy: No Hx Breast Surgery: No Additional Surgical History: liver biopsy - Social History Smoking Status: Unknown if ever smoked - Medications Home Medications: Home Medications Medication Instructions Recorded Confirmed Last Taken Type Propranolol HCl 20 mg PO Q8H #90 tablet 05/29/19 06/07/20 Unknown Rx lisinopriL [Zestril TAB] 10 mg PO QDAY #90 tablet 05/29/19 06/07/20 Unknown Rx metFORMIN XR [Glucophage XR] 500 mg PO QDDIAB #90 tablet 05/29/19 06/07/20 Unknown Rx cefUROXime [Ceftin] 2 tab PO Q12H 10 Days #40 tablet 07/04/19 06/07/20 Unknown Rx Insulin NPH/Regular [NovoLIN 70/30] 35 unit SUB-Q BIDDIAB #2 vial 06/08/20 Unknown Rx methIMAzole [Tapazole] 10 mg PO Q8HR #90 tablet 06/08/20 Unknown Rx Cyclobenzaprine [Flexeril] 10 mg PO TID PRN #12 tablet 09/15/20 Unknown Rx Ibuprofen [Motrin 600 MG tab] 600 mg PO Q8H PRN #20 tablet 09/15/20 Unknown Rx ED Physical Exam - General Limitations: No Limitations - Other Other exam information: GENERAL: The patient is well-developed well-nourished. HENT: Normocephalic. Atraumatic. Patient has moist mucous membranes. EYES: Extraocular motions are intact. NECK: Supple. Trachea is midline. CHEST/LUNGS: Clear to auscultation. There is no respiratory distress noted. There is reproducible right-sided chest wall tenderness to palpation without crepitus or deformity. HEART/CARDIOVASCULAR: Regular. There is no tachycardia. There is no murmur. ABDOMEN: Abdomen is soft, nontender. Patient has normal bowel sounds. SKIN: Skin is warm and dry. NEURO: The patient is awake, alert, and oriented. The patient is cooperative. The patient has no focal neurologic deficits. Normal speech. MUSCULOSKELETAL: There is no tenderness or deformity. There is no limitation range of motion. ED Course Vital Signs 09/15/20 09/15/20 09/15/20 08:42 09:15 09:31 Temperature 98.8 F Pulse Rate 114 H 119 H 111 H Respiratory 18 25 H 20 Rate Blood Pressure 130/70 130/73 130/73 O2 Sat by Pulse 95 99 98 Oximetry 09/15/20 09/15/20 09/15/20 09:45 10:01 10:59 Temperature Pulse Rate 115 H 119 H Respiratory 18 24 Rate Blood Pressure 130/73 130/73 149/54 O2 Sat by Pulse 99 98 Oximetry 09/15/20 09/15/20 09/15/20 11:45 12:07 12:47 Temperature Pulse Rate 113 H 99 H Respiratory 16 14 Rate Blood Pressure 117/81 O2 Sat by Pulse 98 Oximetry KAIT score - Kait Score Age > 65: (0) No Aspirin use within the Past 7 Days: (0) No 3 or more CAD Risk Factors: (0) No 2 or more Angina events in past 24 hrs: (0) No Known CAD with more than 50% Stenosis: (0) No Elevated Cardiac Markers: (0) No ST Deviation Greater than 0.5mm: (0) No KAIT Score: 0 ED Medical Decision Making - Lab Data Result diagrams: 09/15/20 09:42 09/15/20 09:42 Lab Results 09/15/20 09/15/20 09/15/20 Range/Units 09:42 09:42 09:42 WBC 8.7 (4.5-11.0) K/mm3 RBC 4.68 (3.65-5.03) M/mm3 Hgb 13.4 (10.1-14.3) gm/dl Hct 39.2 (30.3-42.9) % MCV 84 (79-97) fl MCH 29 (28-32) pg MCHC 34 (30-34) % RDW 14.1 (13.2-15.2) % Plt Count 238 (140-440) K/mm3 Lymph % (Auto) 14.3 (13.4-35.0) % [place] % (Auto) 7.4 H (0.0-7.3) % Eos % (Auto) 0.7 (0.0-4.3) % Baso % (Auto) 0.2 (0.0-1.8) % Lymph # (Auto) 1.2 (1.2-5.4) K/mm3 [place] # (Auto) 0.6 (0.0-0.8) K/mm3 Eos # (Auto) 0.1 (0.0-0.4) K/mm3 Baso # (Auto) 0.0 (0.0-0.1) K/mm3 Seg Neutrophils % 77.4 H (40.0-70.0) % Seg Neutrophils # 6.7 (1.8-7.7) K/mm3 D-Dimer 165.37 (0-234) ng/mlDDU Sodium 137 (137-145) mmol/L Potassium 3.1 L (3.6-5.0) mmol/L Chloride 97.7 L (98-107) mmol/L Carbon Dioxide 23 (22-30) mmol/L Anion Gap 19 mmol/L BUN 10 (7-17) mg/dL Creatinine 0.4 L (0.6-1.2) mg/dL Estimated GFR > 60 ml/min BUN/Creatinine Ratio 25 % Glucose 314 H (65-100) mg/dL Calcium 8.9 (8.4-10.2) mg/dL Total Bilirubin 0.70 (0.1-1.2) mg/dL AST 14 (5-40) units/L ALT 27 (7-56) units/L Alkaline Phosphatase 123 (35-129) units/L Troponin T < 0.010 (0.00-0.029) ng/mL Total Protein 7.5 (6.3-8.2) g/dL Albumin 3.8 L (3.9-5) g/dL Albumin/Globulin Ratio 1.0 % HCG, Qual (Negative) 09/15/20 Range/Units 09:42 WBC (4.5-11.0) K/mm3 RBC (3.65-5.03) M/mm3 Hgb (10.1-14.3) gm/dl Hct (30.3-42.9) % MCV (79-97) fl MCH (28-32) pg MCHC (30-34) % RDW (13.2-15.2) % Plt Count (140-440) K/mm3 Lymph % (Auto) (13.4-35.0) % [place] % (Auto) (0.0-7.3) % Eos % (Auto) (0.0-4.3) % Baso % (Auto) (0.0-1.8) % Lymph # (Auto) (1.2-5.4) K/mm3 [place] # (Auto) (0.0-0.8) K/mm3 Eos # (Auto) (0.0-0.4) K/mm3 Baso # (Auto) (0.0-0.1) K/mm3 Seg Neutrophils % (40.0-70.0) % Seg Neutrophils # (1.8-7.7) K/mm3 D-Dimer (0-234) ng/mlDDU Sodium (137-145) mmol/L Potassium (3.6-5.0) mmol/L Chloride (98-107) mmol/L Carbon Dioxide (22-30) mmol/L Anion Gap mmol/L BUN (7-17) mg/dL Creatinine (0.6-1.2) mg/dL Estimated GFR ml/min BUN/Creatinine Ratio % Glucose (65-100) mg/dL Calcium (8.4-10.2) mg/dL Total Bilirubin (0.1-1.2) mg/dL AST (5-40) units/L ALT (7-56) units/L Alkaline Phosphatase (35-129) units/L Troponin T (0.00-0.029) ng/mL Total Protein (6.3-8.2) g/dL Albumin (3.9-5) g/dL Albumin/Globulin Ratio % HCG, Qual Negative (Negative) - EKG Data -: EKG Interpreted by Me EKG shows normal: sinus rhythm, axis, intervals, QRS complexes, ST-T waves Rate: tachycardia (106 bpm) - EKG Data When compared to previous EKG there are: no significant change (07/02/19) Interpretation: normal EKG - Radiology Data Radiology results: image reviewed interpreted by me: Chest x-ray does not show any acute process. There are no pleural effusions, obvious pneumonia and there is no pneumothorax. No significant cardiomegaly. - Medical Decision Making This patient presents to the emergency department with complaint of right-sided chest pain that has been going on for the past few days since the patient was lifting heavy boxes. Heart and lung sounds are normal to auscultation. She does not appear in any respiratory or acute distress. The chest pain is reproducible to palpation of the chest wall. No crepitus or deformity. This appears atypical for ACS and more consistent with costochondritis or chest wall pain. EKG does not have any morphology consistent with ST elevation myocardial infarction. Chest x-ray does not show any pneumonia, pleural effusions, pneumothorax, focal consolidation, or any other acute process. Patient's labs have been unremarkable except for CBC, metabolic panel, negative troponin, negative D-dimer, except for hyperglycemia with a blood sugar of 315 and some mild hypokalemia. Patient was given a dose of subcutaneous insulin and an oral dose of potassium chloride. She was also given a dose of Toradol for pain control. Upon reevaluation she is feeling improved. Vital signs reassuring throughout her ED course including being afebrile. No hypoxia. Patient is low on the heart and KAIT score. For all these reason she appears safe for discharge home at this time. Her contact information has been sent over to the [facility], and someone from the office should be contacting her shortly for close outpatient follow-up as per our hospitals low risk chest pain protocol. Critical Care Time: No Critical care attestation.: If time is entered above; I have spent that time in minutes in the direct care of this critically ill patient, excluding procedure time. ED Disposition Clinical Impression: Chest wall pain, Hyperglycemia Chest pain Qualifiers: Chest pain type: unspecified Qualified Code(s): R07.9 - Chest pain, unspecified Disposition: DC- TO HOME OR SELFCARE Is pt being admited?: No Condition: Stable Instructions: Nonspecific Chest Pain, Adult, Hyperglycemia, Chest Wall Pain Additional Instructions: Please follow-up with a primary care physician in the next few days. I am sending your contact information over to the [facility], and someone from their office should be contacting you shortly for close outpatient follow-up. Just in case, I am giving you a referral for one of their biofuels operations manager, Dr. Hansen. Take all of your medications as prescribed. Try to stay away from foods that are high in sugar, carbohydrates and starches. Keep a blood sugar log. You have been prescribed a medication that is sedating and therefore should not be taken prior to driving, working, and responsible for children and in no way should be mixed with alcohol of any quantity. Return to the emergency department with any worsening of your symptoms, new or concerning symptoms not addressed during this current emergency department visit, or with any acute distress. Prescriptions: Cyclobenzaprine [Flexeril] 10 mg PO TID PRN #12 tablet PRN Reason: Muscle Spasm Ibuprofen [Motrin 600 MG tab] 600 mg PO Q8H PRN #20 tablet PRN Reason: Pain Referrals: PRIMARY CARE, [Primary Care Provider] - 2-3 Days KALEY HANSEN MD [Staff Physician] - 2-3 Days Forms: Work/School Release Form(ED) Time of Disposition: 12:32
--- NOTE | 2020-09-15 10:21 | XRay Report ---
CHEST 1 VIEW 09/15/2020 9:14 AM INDICATION / CLINICAL INFORMATION: CP. COMPARISON: 06/07/2020 FINDINGS: SUPPORT DEVICES: None. HEART / MEDIASTINUM: No significant abnormality. LUNGS / PLEURA: No significant pulmonary or pleural abnormality. No pneumothorax. ADDITIONAL FINDINGS: No significant additional findings. IMPRESSION: 1. No acute findings. Signer Name: Harinder Austin MD Signed: 09/15/2020 10:17 AM Workstation Name: [id number]
[2020-09-15 10:24] LABS: Basophils % (Auto) 0.2 % (0.0-1.8); Eosinophils # (Auto) 0.1 K/mm3 (0.0-0.4); Eosinophils % (Auto) 0.7 % (0.0-4.3); Hematocrit 39.2 % (30.3-42.9); Hemoglobin 13.4 gm/dl (10.1-14.3); Lymphocytes # (Auto) 1.2 K/mm3 (1.2-5.4); Lymphocytes % (Auto) 14.3 % (13.4-35.0); Mean Corpuscular HGB Conc 34 % (30-34); Mean Corpuscular Volume 84 fl (79-97); Monocytes # (Auto) 0.6 K/mm3 (0.0-0.8); Monocytes % (Auto) 7.4 % (0.0-7.3); Platelet Count 238 K/mm3 (140-440); Red Blood Count 4.68 M/mm3 (3.65-5.03); Red Cell Distribution Width 14.1 % (13.2-15.2)
[2020-09-15 10:43] LABS: Alanine Aminotransferase 27 units/L (7-56); Albumin 3.8 g/dL (3.9-5); Blood Urea Nitrogen 10 mg/dL (7-17); Calcium 8.9 mg/dL (8.4-10.2); Hemolysis Index 5
[2020-09-15 10:44] LABS: BUN/Creatinine Ratio 25
[2020-09-15] MEDS ORDERED: POTASSIUM CHLORIDE ER 20 MEQ TAB PO ONE (10:59)
[2020-09-15] MEDS ORDERED: KETOROLAC 30 MG/1 ML INJ IM ONE (11:11)
[2020-09-15] MEDS ORDERED: INSULIN REGULAR, HUMAN 100 UNITS/1 ML SUB-Q ONE (11:11)
[2020-09-15 12:47] VITALS: BP 117/81
--- NOTE | 2020-09-18 11:36 | Electrocardiograph Report ---
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
== END 2020-09-15 12:54 | disposition home or self-care (01) ==
LOC: ED 08:39
DX: R07.89 Other chest pain (principal); E11.65 Type 2 diabetes mellitus with hyperglycemia; I10 Essential (primary) hypertension; Z79.899 Other long term (current) drug therapy; Z88.8 Allergy status to other drugs, medicaments and biological substances
CPT/HCPCS: 36415; 71045; 80053; 84484; 84703; 85025; 85379; 93005; 96372; 99284; J1885; J1815

== ENCOUNTER 2022-01-28 16:26 | Emergency (ER) | payer SELFPAY ==
[2022-01-28 17:34] VITALS: BP 128/72
== END 2022-01-29 05:00 | disposition left against medical advice (07) ==
LOC: ED 16:26
DX: S89.90XA Unspecified injury of unspecified lower leg, initial encounter (principal); Z53.21 Procedure and treatment not carried out due to patient leaving prior to being seen by health care provider; X58.XXXA Exposure to other specified factors, initial encounter; Y93.89 Activity, other specified; Y92.89 Other specified places as the place of occurrence of the external cause; Y99.8 Other external cause status

== ENCOUNTER 2022-01-29 02:10 | Emergency (ER) | payer SELFPAY ==
--- NOTE | 2022-01-29 09:58 | Emergency Department Report ---
ED Extremity Problem HPI - General Chief complaint: Extremity Injury, Lower Stated complaint: RT KNEE PAIN Source: patient Mode of arrival: Ambulatory Limitations: No Limitations - History of Present Illness Initial comments: 51-year-old female presents to the ED complaining of right knee pain x 2days . She states that she works at [employer] and has prolonged standing x10 hours. No obvious trauma or deformity noted . Patient denies any numbness or tingling of the right leg. She is able to ambulate without any difficulty. She is alert and oriented x3. No acute distress noted. No ill appearance noted. She states pain is a current 3 out of 10. Physical examination showed no abnormality. Rechecked the patient is resting quietly , comfortable and feeling better. I discussed the results of diagnostic study, my clinical impression and the plan for further treatment with the patient. Patient agrees with plan and discharge at this present time. All question addressed. I have given the patient instruction regarding a diagnosis ,expectation ,follow- up and return precaution. I explained to the patient that emergent condition may arise and to return to the ED for new worsen and any new persisting condition. I have explained the importance of following up with the primary care physician or referral physician listed below has instructed. The patient verbalized understanding of discharge instruction. MD Complaint: extremity pain, joint paint Onset/Timin -: days(s) Location: right History of Same: No Radiation: none Severity scale (0 -10): 7 Quality: aching Consistency: intermittent Worsens with: nothing Associated Symptoms: denies other symptoms - Related Data Previous Rx's Medication Instructions Recorded Last Taken Type Propranolol HCl 20 mg PO Q8H #90 tablet 05/29/19 Unknown Rx lisinopriL [Zestril TAB] 10 mg PO QDAY #90 tablet 05/29/19 Unknown Rx metFORMIN XR [Glucophage XR] 500 mg PO QDDIAB #90 tablet 05/29/19 Unknown Rx cefUROXime [Ceftin] 2 tab PO Q12H 10 Days #40 tablet 07/04/19 Unknown Rx Insulin NPH/Regular [NovoLIN 70/30] 35 unit SUB-Q BIDDIAB #2 vial 06/08/20 Unknown Rx methIMAzole [Tapazole] 10 mg PO Q8HR #90 tablet 06/08/20 Unknown Rx Cyclobenzaprine [Flexeril] 10 mg PO TID PRN #12 tablet 09/15/20 Unknown Rx Ibuprofen [Motrin 600 MG tab] 600 mg PO Q8H PRN #20 tablet 09/15/20 Unknown Rx Cyclobenzaprine [Flexeril] 10 mg PO TID PRN 15 Days #30 tab 01/29/22 Unknown Rx Ketorolac [Toradol] 10 mg PO Q6H PRN 5 Days #20 tab 01/29/22 Unknown Rx Allergies Allergy/AdvReac Type Severity Reaction Status Date / Time fentanyl Allergy Nausea Verified 01/28/22 17:31 tramadol Allergy Hives Verified 01/28/22 17:31 ED Review of Systems ROS: Stated complaint: RT KNEE PAIN Other details as noted in HPI Constitutional: denies: chills, fever Eyes: denies: eye pain, eye discharge, vision change ENT: denies: ear pain, throat pain Respiratory: denies: cough, shortness of breath, wheezing Cardiovascular: denies: chest pain, palpitations Endocrine: no symptoms reported Gastrointestinal: denies: abdominal pain, nausea, diarrhea Genitourinary: denies: urgency, dysuria, discharge Musculoskeletal: denies: back pain, joint swelling, arthralgia Skin: denies: rash, lesions Neurological: denies: headache, weakness, paresthesias Psychiatric: denies: anxiety, depression Hematological/Lymphatic: denies: easy bleeding, easy bruising ED Past Medical Hx - Past Medical History Hx Hypertension: Yes Hx Heart Attack/AMI: No Hx Congestive Heart Failure: No Hx Diabetes: Yes Hx Deep Vein Thrombosis: No Hx Pulmonary Embolism: No Hx GERD: No Hx Liver Disease: No Hx Renal Disease: No Hx Sickle Cell Disease: No Hx Arthritis: No Hx Headaches / Migraines: No Hx Seizures: No Hx Kidney Stones: No Hx Asthma: No Hx COPD: No Hx Tuberculosis: No Hx Dementia: No Hx HIV: No Additional medical history: Cirrhosis - Surgical History Hx Coronary Stent: No Hx Open Heart Surgery: No Hx Pacemaker: No Hx Cholecystectomy: No Hx Appendectomy: No Hx Breast Surgery: No Additional Surgical History: liver biopsy - Social History Smoking Status: Unknown if ever smoked - Medications Home Medications: Home Medications Medication Instructions Recorded Confirmed Last Taken Type Propranolol HCl 20 mg PO Q8H #90 tablet 05/29/19 06/07/20 Unknown Rx lisinopriL [Zestril TAB] 10 mg PO QDAY #90 tablet 05/29/19 06/07/20 Unknown Rx metFORMIN XR [Glucophage XR] 500 mg PO QDDIAB #90 tablet 05/29/19 06/07/20 Unknown Rx cefUROXime [Ceftin] 2 tab PO Q12H 10 Days #40 tablet 07/04/19 06/07/20 Unknown Rx Insulin NPH/Regular [NovoLIN 70/30] 35 unit SUB-Q BIDDIAB #2 vial 06/08/20 Unknown Rx methIMAzole [Tapazole] 10 mg PO Q8HR #90 tablet 06/08/20 Unknown Rx Cyclobenzaprine [Flexeril] 10 mg PO TID PRN #12 tablet 09/15/20 Unknown Rx Ibuprofen [Motrin 600 MG tab] 600 mg PO Q8H PRN #20 tablet 09/15/20 Unknown Rx Cyclobenzaprine [Flexeril] 10 mg PO TID PRN 15 Days #30 tab 01/29/22 Unknown Rx Ketorolac [Toradol] 10 mg PO Q6H PRN 5 Days #20 tab 01/29/22 Unknown Rx ED Physical Exam - General Limitations: No Limitations General appearance: alert, in no apparent distress - Head Head exam: Present: atraumatic, normocephalic - Eye Eye exam: Present: normal appearance - ENT ENT exam: Present: mucous membranes moist - Neck Neck exam: Present: normal inspection - Respiratory Respiratory exam: Present: normal lung sounds bilaterally. Absent: respiratory distress - Cardiovascular Cardiovascular Exam: Present: regular rate, normal rhythm. Absent: systolic murmur, diastolic murmur, rubs, gallop - GI/Abdominal GI/Abdominal exam: Present: soft, normal bowel sounds - Extremities Exam Extremities exam: Present: normal inspection - Back Exam Back exam: Present: normal inspection - Neurological Exam Neurological exam: Present: alert, oriented X3 - Psychiatric Psychiatric exam: Present: normal affect, normal mood - Skin Skin exam: Present: warm, dry, intact, normal color. Absent: rash ED Course Vital Signs 01/29/22 01/29/22 03:04 11:29 Temperature 97.9 F 97.9 F Pulse Rate 96 H 102 H Respiratory 18 18 Rate Blood Pressure 138/78 118/58 [Right] O2 Sat by Pulse 97 100 Oximetry ED Medical Decision Making - Radiology Data [facility] [address] [place] [address] XRay Report Signed Patient: JOSÉ LUIS QUINONES MR#: [id number] : 1970 Acct:[id number] Age/Sex: 51 / F ADM Date: 01/29/22 Loc: ED Attending Dr: Ordering Physician: ASHER RODRIGUEZ Date of Service: 01/29/22 Procedure(s): XR knee 1-2V RT Accession Number(s): [id number] cc: ASHER RODRIGUEZ Fluoro Time In Minutes: RIGHT KNEE 2 VIEWS INDICATION: knee pain. COMPARISON: None. IMPRESSION: No acute osseous or soft tissue abnormality. No significant DJD. Signer Name: Uli Henao Jr, MD Signed: 01/29/2022 1:58 PM Workstation Name: [id number] Transcribed By: TTR Dictated By: ULI HENAO JR, MD Electronically Authenticated By: ULI HENAO JR, MD Signed Date/Time: 01/29/22 135 DD/ 56 TD/TT: - Medical Decision Making 51-year-old female presents to the ED complaining of right knee pain x 2days . She states that she works at [employer] and has prolonged standing x10 hours. No obvious trauma or deformity noted . Patient denies any numbness or tingling of the right leg. She is able to ambulate without any difficulty. She is alert and oriented x3. No acute distress noted. No ill appearance noted. She states pain is a current 3 out of 10. x ray show no acute finding . Critical care attestation.: If time is entered above; I have spent that time in minutes in the direct care of this critically ill patient, excluding procedure time. ED Disposition Clinical Impression: Right knee pain Qualifiers: Chronicity: acute Qualified Code(s): M25.561 - Pain in right knee Disposition: HOME / SELF CARE / HOMELESS Is pt being admited?: No Does the pt Need Aspirin: No Condition: Stable Instructions: Acute Knee Pain, Adult, Musculoskeletal Pain, Acute Knee Pain, Adult, [id number] Additional Instructions: take medication as prescribed return to ed for any worsen symptoms Prescriptions: Cyclobenzaprine [Flexeril] 10 mg PO TID PRN 15 Days #30 tab PRN Reason: Muscle Spasm Ketorolac [Toradol] 10 mg PO Q6H PRN 5 Days #20 tab PRN Reason: Pain Referrals: PRIMARY CARE, [Primary Care Provider] - 3-5 Days [facility] [Provider Group] - 3-5 Days Forms: Work/School Release Form(ED) Time of Disposition: 11:06
[2022-01-29] MEDS ORDERED: IBUPROFEN 800 MG TAB PO ONE (10:48)
[2022-01-29 11:32] VITALS: BP 118/58
--- NOTE | 2022-01-29 14:02 | XRay Report ---
RIGHT KNEE 2 VIEWS INDICATION: knee pain. COMPARISON: None. IMPRESSION: No acute osseous or soft tissue abnormality. No significant DJD. Signer Name: Uli De Oliveira Jr, MD Signed: 01/29/2022 1:58 PM Workstation Name: [id number]
== END 2022-01-29 11:25 | disposition home or self-care (01) ==
LOC: ED 02:10
DX: M25.561 Pain in right knee (principal); I10 Essential (primary) hypertension; E11.9 Type 2 diabetes mellitus without complications; Z91.09 Other allergy status, other than to drugs and biological substances
CPT/HCPCS: 99283

== ENCOUNTER 2022-01-30 05:17 | Emergency (ER) | payer SELFPAY ==
[2022-01-30 09:06] LABS: Alanine Aminotransferase 22 units/L (7-56); Albumin 4.5 g/dL (3.9-5); BUN/Creatinine Ratio 24; Blood Urea Nitrogen 17 mg/dL (7-17); Calcium 9.5 mg/dL (8.4-10.2); Hemolysis Index 2
[2022-01-30 09:08] LABS: Bilirubin,Urine NEG (Negative); Blood,Urine NEG (Negative); Color,Urine Yellow (Yellow); Protein,Urine <15 mg/dL mg/dL (Negative); Urobilinogen,Urine < 2 mg/dL (<2.0)
[2022-01-30 09:08] LABS: Basophils # (Auto) 0.1 K/mm3 (0.0-0.1); Basophils % (Auto) 0.5 % (0.0-1.8); Eosinophils # (Auto) 0.4 K/mm3 (0.0-0.4); Eosinophils % (Auto) 3.6 % (0.0-4.3); Hematocrit 39.9 % (30.3-42.9); Hemoglobin 13.8 gm/dl (10.1-14.3); Lymphocytes # (Auto) 1.8 K/mm3 (1.2-5.4); Lymphocytes % (Auto) 18.1 % (13.4-35.0); Mean Corpuscular HGB Conc 35 % (30-34); Mean Corpuscular Volume 86 fl (79-97); Monocytes # (Auto) 0.6 K/mm3 (0.0-0.8); Monocytes % (Auto) 5.8 % (0.0-7.3); Platelet Count 251 K/mm3 (140-440); Red Blood Count 4.65 M/mm3 (3.65-5.03); Red Cell Distribution Width 13.4 % (13.2-15.2)
[2022-01-30 09:12] LABS: Bacteria,Urine 2+ /HPF (Negative); Mucus,Urine FEW /HPF
--- NOTE | 2022-01-30 14:09 | Emergency Department Report ---
ED General Adult HPI - General Chief complaint: Weakness Stated complaint: UNABLE TO MOVE BODY PARTS,BODY IN PAIN Time Seen by Provider: 01/30/22 14:03 Source: patient Mode of arrival: Ambulatory Limitations: No Limitations, Physical Limitation - History of Present Illness Initial comments: 51-year-old white female with a history of insulin-dependent diabetes, says having trouble with pain in wrist and arm. Denies having any neck trauma. Patient does not have any weakness, however has pain with movement. denies having any fever or chills. -: Gradual, week(s) (2) Location: left, right, upper extremity Radiation: extremity Quality: aching Consistency: intermittent Improves with: none Worsens with: none Associated Symptoms: denies other symptoms Treatments Prior to Arrival: none - Related Data Previous Rx's Medication Instructions Recorded Last Taken Type Propranolol HCl 20 mg PO Q8H #90 tablet 05/29/19 Unknown Rx lisinopriL [Zestril TAB] 10 mg PO QDAY #90 tablet 05/29/19 Unknown Rx metFORMIN XR [Glucophage XR] 500 mg PO QDDIAB #90 tablet 05/29/19 Unknown Rx cefUROXime [Ceftin] 2 tab PO Q12H 10 Days #40 tablet 07/04/19 Unknown Rx Insulin NPH/Regular [NovoLIN 70/30] 35 unit SUB-Q BIDDIAB #2 vial 06/08/20 Unknown Rx methIMAzole [Tapazole] 10 mg PO Q8HR #90 tablet 06/08/20 Unknown Rx Cyclobenzaprine [Flexeril] 10 mg PO TID PRN #12 tablet 09/15/20 Unknown Rx Ibuprofen [Motrin 600 MG tab] 600 mg PO Q8H PRN #20 tablet 09/15/20 Unknown Rx Cyclobenzaprine [Flexeril] 10 mg PO TID PRN 15 Days #30 tab 01/29/22 Unknown Rx Ketorolac [Toradol] 10 mg PO Q6H PRN 5 Days #20 tab 01/29/22 Unknown Rx oxyCODONE /ACETAMINOPHEN [Percocet 1 tab PO Q6HR PRN #15 tablet 01/30/22 Unknown Rx 5/325] Allergies Allergy/AdvReac Type Severity Reaction Status Date / Time fentanyl Allergy Nausea Verified 01/28/22 17:31 tramadol Allergy Hives Verified 01/28/22 17:31 ED Review of Systems ROS: Stated complaint: UNABLE TO MOVE BODY PARTS,BODY IN PAIN Other details as noted in HPI Constitutional: no symptoms reported Eyes: denies: eye pain, eye discharge, vision change ENT: denies: ear pain, throat pain Respiratory: denies: cough, shortness of breath, wheezing Cardiovascular: denies: chest pain, palpitations Endocrine: no symptoms reported Gastrointestinal: denies: abdominal pain, nausea, diarrhea Genitourinary: denies: urgency, dysuria, discharge Musculoskeletal: denies: back pain, joint swelling, arthralgia Skin: denies: rash, lesions Neurological: denies: headache, weakness, paresthesias Psychiatric: denies: anxiety, depression Hematological/Lymphatic: denies: easy bleeding, easy bruising ED Past Medical Hx - Past Medical History Hx Hypertension: Yes Hx Heart Attack/AMI: No Hx Congestive Heart Failure: No Hx Diabetes: Yes Hx Deep Vein Thrombosis: No Hx Pulmonary Embolism: No Hx GERD: No Hx Liver Disease: No Hx Renal Disease: No Hx Sickle Cell Disease: No Hx Arthritis: No Hx Headaches / Migraines: No Hx Seizures: No Hx Kidney Stones: No Hx Asthma: No Hx COPD: No Hx Tuberculosis: No Hx Dementia: No Hx HIV: No Additional medical history: Cirrhosis - Surgical History Hx Coronary Stent: No Hx Open Heart Surgery: No Hx Pacemaker: No Hx Cholecystectomy: No Hx Appendectomy: No Hx Breast Surgery: No Additional Surgical History: liver biopsy - Social History Smoking Status: Never Smoker Substance Use Type: None - Medications Home Medications: Home Medications Medication Instructions Recorded Confirmed Last Taken Type Propranolol HCl 20 mg PO Q8H #90 tablet 05/29/19 06/07/20 Unknown Rx lisinopriL [Zestril TAB] 10 mg PO QDAY #90 tablet 05/29/19 06/07/20 Unknown Rx metFORMIN XR [Glucophage XR] 500 mg PO QDDIAB #90 tablet 05/29/19 06/07/20 Unknown Rx cefUROXime [Ceftin] 2 tab PO Q12H 10 Days #40 tablet 07/04/19 06/07/20 Unknown Rx Insulin NPH/Regular [NovoLIN 70/30] 35 unit SUB-Q BIDDIAB #2 vial 06/08/20 Unknown Rx methIMAzole [Tapazole] 10 mg PO Q8HR #90 tablet 06/08/20 Unknown Rx Cyclobenzaprine [Flexeril] 10 mg PO TID PRN #12 tablet 09/15/20 Unknown Rx Ibuprofen [Motrin 600 MG tab] 600 mg PO Q8H PRN #20 tablet 09/15/20 Unknown Rx Cyclobenzaprine [Flexeril] 10 mg PO TID PRN 15 Days #30 tab 01/29/22 Unknown Rx Ketorolac [Toradol] 10 mg PO Q6H PRN 5 Days #20 tab 01/29/22 Unknown Rx oxyCODONE /ACETAMINOPHEN [Percocet 1 tab PO Q6HR PRN #15 tablet 01/30/22 Unknown Rx 5/325] ED Physical Exam - General Limitations: Physical Limitation General appearance: alert, in no apparent distress - Head Head exam: Present: atraumatic, normocephalic - Eye Eye exam: Present: normal appearance, PERRL - ENT ENT exam: Present: normal exam, normal orophraynx, mucous membranes moist - Neck Neck exam: Present: normal inspection. Absent: tenderness - Respiratory Respiratory exam: Present: normal lung sounds bilaterally. Absent: respiratory distress - Cardiovascular Cardiovascular Exam: Present: regular rate, normal rhythm. Absent: systolic murmur, diastolic murmur, rubs, gallop - GI/Abdominal GI/Abdominal exam: Present: soft. Absent: distended, tenderness - Extremities Exam Extremities exam: Present: normal inspection, full ROM, tenderness - Back Exam Back exam: Present: normal inspection ED Course Vital Signs 01/30/22 01/30/22 05:21 16:09 Temperature 98.0 F Pulse Rate 111 H 111 H Respiratory 18 18 Rate Blood Pressure 134/71 Blood Pressure 152/83 [Left] O2 Sat by Pulse 97 100 Oximetry ED Medical Decision Making - Lab Data Result diagrams: 01/30/22 07:59 01/30/22 07:59 Critical care attestation.: If time is entered above; I have spent that time in minutes in the direct care of this critically ill patient, excluding procedure time. ED Disposition Clinical Impression: Carpal tunnel syndrome, Neuropathy Disposition: 01 HOME / SELF CARE / HOMELESS Is pt being admited?: No Does the pt Need Aspirin: No Condition: Stable Instructions: Preventing Carpal Tunnel Syndrome, Carpal Tunnel Syndrome, [id number], Peripheral Neuropathy Prescriptions: oxyCODONE /ACETAMINOPHEN [Percocet 5/325] 1 tab PO Q6HR PRN #15 tablet PRN Reason: Pain Referrals: TERESO LIM MD [Primary Care Provider] - 3-5 Days
--- NOTE | 2022-01-30 14:38 | XRay Report ---
LEFT WRIST 2 VIEWS INDICATION / CLINICAL INFORMATION: Pain in left wrist. COMPARISON: None available. FINDINGS: BONES and JOINT(S): No acute fracture or subluxation. No significant arthritis. SOFT TISSUES: No significant abnormality. ADDITIONAL FINDINGS: None. IMPRESSION: 1. No acute findings. RIGHT WRIST 2 VIEWS INDICATION / CLINICAL INFORMATION: Pain in right wrist. COMPARISON: None available. FINDINGS: BONES and JOINT(S): No acute fracture or subluxation. No significant arthritis. SOFT TISSUES: No significant abnormality. ADDITIONAL FINDINGS: None. IMPRESSION: 1. No acute findings. Signer Name: Sourav Chairez MD Signed: 01/30/2022 2:34 PM Workstation Name: [id number]
[2022-01-30 16:09] VITALS: BP 152/83
== END 2022-01-30 18:43 | disposition home or self-care (01) ==
LOC: ED 05:17
DX: G62.9 Polyneuropathy, unspecified (principal); Z88.8 Allergy status to other drugs, medicaments and biological substances; E11.9 Type 2 diabetes mellitus without complications
CPT/HCPCS: 36415; 80053; 81001; 85025; 99284